=== PATIENT | female | born 1975 | race Caucasian/White ===

== ENCOUNTER 2024-02-13 19:45 | Outpatient (OUT) | payer OTHER, SELFPAY | END 2024-02-13 19:46 | disposition home or self-care (01) | LOC: SLEEP 19:45 | PROVIDERS: PCP Psychiatry & Neurology Neurology; Visit Provider Psychiatry & Neurology Neurology | DX: G47.33 Obstructive sleep apnea (adult) (pediatric) (principal) | CPT/HCPCS: 95810 ==

== ENCOUNTER 2024-03-27 20:00 | Outpatient (OUT) | payer OTHER, SELFPAY ==
--- OUTSIDE RECORDS SUMMARY | 2024-03-29 08:42 | XMS_ITS | CCD ---
Author Organization [facility] CliniSyal Care Team Providers Care Canary Breeder Name Role Phone GREGG, MAYCO Unavailable Unavailable GREGG, MAYCO Unavailable Unavailable GREGG, MAYCO Unavailable Unavailable GREGG, MAYCO Unavailable Unavailable GREGG, MAYCO Unavailable Unavailable GREGG, MAYCO Unavailable Unavailable GIOVANNI BEARD Unavailable Unavailable GREGG, MAYCO Unavailable Unavailable MONIQUE MARIE Unavailable Unavailable KUNS, TREVER SHI Unavailable Unavailable Kuns, Trever Unavailable Amy Weems Unavailable Kuns, DO Trever Primary Care Provider [phone] Kuns, DO Trever Attending Provider Kuns, DO Trever Primary Care Provider Kuns, DO Trever Attending Provider [phone] VisciDO Rico Attending Provider [phone] Kuns, DO Trever Attending Provider [phone] Kuns, DO Trever Primary Care Provider Rons Trever COLEMAN R Primary Care Provider [phone] MD Kenneth Barragan Referring Provider Kuns, Trever Admitting Unavailable Kuns, Trever Primary Care Unavailable Kenneth Barragan Referring Unavailable Kuns, Trever Attending Unavailable Kuns, Trever Attending Unavailable Kuns, Trever Admitting Unavailable Kuns, Trever Admitting Unavailable Kuns, Trever Primary Care Unavailable Kuns, Trever Attending Unavailable Kuns, Trever Admitting Unavailable Kuns, Trever Primary Care Unavailable Kuns, Trever Attending Unavailable Kuns, Trever Admitting Unavailable Kuns, Trever Primary Care Unavailable Kuns, Trever Attending Unavailable JAYLIN VILLELA Attending Unavailable TREVER LIMON R Referring Unavailable YONI BLANCHARD Attending Unavailable JAYLIN VILLELA Referring Unavailable ALEJANDRO BETTENCOURT Attending Unavailable JAYLIN VILLELA Referring Unavailable JAYLIN VILLELA Attending Unavailable Allergies Allergy Classification Reported Allergen(s) Allergy Type Date of Onset Reaction(s) Facility (13 sources) cefpodoxime; Translations: [CEFPODOXIME] Drug Allergy 09-22-2016 Bebeto Flynn [facility] Repository (20 sources) cefpodoxime Drug Allergy Unknown DNsolution Other Medications Current Medications Medication Drug Class(es) Dates Sig (Normalized) Sig (Original) acetaminophen 250 mg / aspirin 250 mg / caffeine 65 mg oral tablet (20 sources) Platelet Aggregation Inhibitor, Nonsteroidal Anti-inflammatory Drug, Central Nervous System Stimulant, Methylxanthine Start: 11-01-2018 take 1 tablet by mouth every four to six hours Aspirin-Acetamin ophen-Caffeine (Excedrin Migraine) 250-250-65 mg Tablet Active 1 TAB PO EVERY 4-6 HOURS November 01, 2018 12:00am take 2 tablets by mo [facility] every twenty-four hours Excedrin Migraine 250-250-65 MG 2 tablet s Orally Once a day Active take 2 tablets by mo [facility] every twenty-four hours azithromycin 250 mg oral tablet (13 sources) Macrolide Antimicrobial Start: 12-28-2021 Zithro max Z-Melany 250 MG as directed Orally as directed Dec, Active Start: 05-04-2021 Zithromax 250 MG 2 tablet on the first day, then 1 tablet daily for 4 days Orally as directed for 5 day(s) Apr, Active cholecalciferol 0.05 mg oral capsule (10 sources) Vitamin D take 1 capsule by mouth every twenty-four hours Vitamin D3 50 MCG (1999 UT) 1 capsule Orally Once a day Active citalopram 20 mg oral tablet (9 sources) Serotonin Reuptake Inhibitor Start: 10-30-19 take 1 tablet by mouth every twenty-four hours Citalopram Hydrobromide 20 MG 1 tablet Orally Once a day for 90 days Oct, Active Start: 10-29-2021 [facility]four hours Citalopram Hydrobromide 10 MG 1 tablet Orally Once a day for 90 days Oct, Active Collagen (17 sources) Collagen 1500/C 500-50-0.8 MG as directed Orally Active eletriptan 40 mg oral tablet (20 sources) Serotonin-1b and Serotonin-1d Receptor Agonist Start: 08-31-2017 take 1 tablet by mouth once Eletriptan (Relpax) 40 mg Tablet Active 40 MG PO Once November 01, 2018 12:00am Start: 08-31-2017 take 1 tablet by mouth every t wenty-four hours hydrOXYzine hydrochloride 25 mg oral tablet (1 source) Antihistamine Start: 08-18-2022 take 1 tablet by mouth every twenty-four hours hydrOXYzine HCl 25 MG 1 tablet at bedtime as needed Orally Once a day for 30 days August, Active ibuprofen 600 mg oral tablet (16 sources) Nonsteroidal Anti-inflammatory Drug Start: 11-09-2018 Ibuprofen Active 600 MG PO Every 6 hours November 09, 2018 12:00am do not exceed 4 doses in a 24 hour period Start: 11-01-2018 End: 11-09-2018 take 3 tablets by mouth every six hours Ibuprofen (Advil) 200 mg Tablet Discontinued 600 MG PO Q6H November 01, 2018 12:00am November 09, 2018 9:40am levonorgestrel 0.802341 mg/hr intrauterine system (12 sources) Progestin, Progestin-containing Intrauterine Device Start: 12-13-2023 Levonorgestrel (Liletta) 20.4 mcg/24 hr (8 yrs) 52 mg intrauterine device Active INTRAUTERI December 13, 2023 12:00am Levonorgestrel ( Liletta, 52 MG,) 20.1 MCG/DAY intrauterine device by Intrauterine route. Active methylPREDNISolone 4 mg oral tablet (4 sources) Corticosteroid Start: 05-04-2021 Medrol 4 MG as directed Orally Apr, Active Multi For Her - (10 sources) Multi For Her - as directed Orally Active 24 hr oxybutynin chloride 10 mg extended release oral tablet (8 sources) Cholinergic Muscarinic Antagonist Start: 03-31-2023 End: 2024 take 1 tablet by mouth every twenty-four hours in the morning oxybutynin XL (Ditropan-XL) 10 MG 24 hr tablet Indications: Urinary urgency , Urge incontinence of urine , Urinary frequency Take 1 tablet (10 mg) by mouth in the morning. Do not crush, chew, or split.. 30 tablet 11 03/31/2023 2024 Active Progesterone Compounding Kit 20 % (5 sources) Progesterone Compounding Kit 20 % as directed Transdermal Active Vitamin B12 1000 MCG (10 sources) take 1 tablet by mouth once daily Vitamin B12 1000 MCG 1 tablet Orally Once a day Active vortioxetine 5 mg oral tablet (1 source) Start: 08-18-2022 take 1 tablet by mouth every twenty-four hours Trintellix 5 MG 1 tablet Orally Once a day for 30 days August, Active {20 (nirmatrelvir 150 MG Oral Tablet) / 10 (ritonavir 100 MG Oral Tablet) } Pack [Paxlovid 5-Day] (4 sources) Start: 11-26-2022 take 3 tablets by mouth every twelve hours Paxlovid (300/100) 20 x 150 MG & 10 x 100MG 3 tablets Orally Twice a day for 5 days covid + 11/26/22 GFR >60 Nov, Active Completed/Discontinued Medications Medication Drug Class(es) Dates Sig (Normalized) Sig (Original) acetaminophen 325 mg / HYDROcodone bitartrate 5 mg oral tablet (8 sources) Opioid Agonist Start: 02-08-2017 End: 11-01-2018 take 1 tablet by mouth every four to six hours Hydrocodone-Acetami nophen ([place]) 5-325 mg Tablet Discontinued 1 TAB PO EVERY 4-6 HOURS February 08, 2017 12:00am November 01, 2018 4:26pm acetaminophen 325 mg / oxyCODONE hydrochloride 5 mg oral tablet (8 sources) Opioid Agonist Start: 11-09-2018 End: 11-17-2023 take 1-2 tablets by mouth every six hours as needed for pain Oxycodone-Acetamino phen (Percocet) 5-325 mg tablet Discontinued 1 - 2 TAB PO Q6H 28 06November 09, 2018 November 17, 2023 1:57pm May take 1-2 tabs q 6 hours prn pain Biotin (20 sources) Start: 11-17-2023 End: 12-13-2023 take 300 ug by mouth once daily Biotin Discontinued 300 MCG PO Daily November 17, 2023 12:00am December 13, 2023 3:53pm Start: 11-17-2023 take 300 ug by mouth once yoselin y Biotin Active 300 MCG PO Daily November 17, 2023 12:00am take 1 tablet by del[facility] every twenty-four hours Biotin 300 MCG 1 tablet Orally Once a day Active take 1 tablet by mouth once yoselin y Biotin 300 MCG 1 tablet Orally Once a day Active 1 ml erenumab-aooe 70 mg/ml auto-injector (20 sources) Start: 08-02-2018 End: 12-13-2023 inject 70 mg by subcutaneous injection every month Erenumab-Aooe (Aimovig Autoinjector) 70 mg/mL Auto-Injector Discontinued 70 MG SUBCUT every month November 01, 2018 12:00am December 13, 2023 3:53pm Ketorolac (20 sources) Nonsteroidal Anti-inflammatory Drug, Cyclooxygenase Inhibitor Start: 08-02-2018 Toradol per 15 mg Jul, 60 mg Start: 07-19-2018 Toradol per 15 mg Jul, 2 mg Start: 07-18-2017 Toradol per 15 mg Jul, 2 cc Start: 07-14-2017 Toradol per 15 mg Jul, 2 cc Start: 12-21-2016 Toradol per 15 mg Dec, 2 cc Start: 05-17-2016 Toradol per 15 mg May, 2 cc Start: 05-03-2016 Toradol per 15 mg Apr, 60 mg Start: 03-13-2014 Toradol per 15 mg Mar, 2 mL mupirocin 0.02 mg/mg topical ointment (5 sources) RNA Synthetase Inhibitor Antibacterial Start: 11-30-2023 End: 12-13-2023 Mupirocin Discontinued 1 APPLIC TOPICAL Twice daily November 30, 2023 12:00am December 13, 2023 3:53pm promethazine hydrochloride 25 mg oral tablet (8 sources) Phenothiazine Start: 02-08-2017 End: 11-01-2018 take 25 mg by mouth every four to six hours Promethazine Discontinued 25 MG PO EVERY 4-6 HOURS February 08, 2017 12:00am November 01, 2018 4:27pm sulfamethoxazole 800 mg / trimethoprim 160 mg oral tablet (13 sources) Dihydrofolate Reductase Inhibitor Antibacterial, Sulfonamide Antimicrobial Start: 11-30-2023 End: 12-13-2023 take 1 tablet by mouth twice daily Sulfamethoxazole- Trimethoprim (Bactrim Ds) 800-160 mg tablet Discontinued 1 TAB PO Twice daily 28 01November 30, 2023 12:00am December 13, 2023 3:53pm Start: 11-09-2018 End: 11-17-2023 take 1 tablet by mouth twice daily Sulfamethoxazole-Trimethoprim (Bactrim D s) 800-160 mg tablet Discontinued 1 TAB PO Twice daily 22 10November 09, 2018 12:00am November 17, 2023 1:57pm Theraputic Injection (20 sources) Start: 08-30-2018 Theraputic Inj ection August, 70 mg Start: 08-02-2018 Theraputic Inj ection Jul, 1 mL Toradol 30 mg/ml (20 sources) Start: 05-04-2021 Toradol 30 mg/ ml Apr, 30 mg Start: 11-04-2020 Toradol 30 mg/ ml Oct, 2 cc venlafaxine 75 mg oral tablet (20 sources) Serotonin and Norepinephrine Reuptake Inhibitor Start: 11-17-2023 End: 12-13-2023 take 75 mg by mouth once daily Venlafaxine Discontinued 75 MG PO Daily November 17, 2023 12:00am December 13, 2023 3:53pm Start: 10-18-2022 take 1 tablet by del[facility] th in the morning venlafaxine (Effexor) 37.5 MG tablet Take 37.5 mg by mouth in the morning. Take with food.. 10/18/2022 Active Start: 09-22-2022 take 1 tablet by [facility] every twenty-four hours Venlafaxine HCl 75 MG 1 tablet with food Orally Once a day for 90 days Sep, Active Start: 09-22-2022 take 1 tablet by del[facility] th every twenty-four hours Venlafaxine HCl 37.5 MG 1 tablet with food Orally Once a day for 30 days Sep, Active Problems Active Problems Problem Classification Problem Date Documented Date Episodic/Chronic Adjustment disorders (2 sources) Stress; Translations: [Reaction to severe stress, unspecified] 02-08-2024 Chronic Administrative/social admission (20 sources) Dietary management surveillance; Translations: [Dietary counseling and surveillance] Episodic Anxiety disorders (20 sources) Mixed anxiety and depressive disorder; Translations: [Other specified anxiety disorders] Chronic Attention-deficit, conduct, and disruptive behavior disorders (2 sources) Attention deficit hyperactivity disorder, predominantly inattentive type; Translations: [Attention-deficit hyperactivity disorder, predominantly inattentive type] 02-23-2024 Chronic Calculus of urinary tract (8 sources) Kidney stone; Translations: [Calculus of kidney] 02-08-2017 Episodic Cardiac dysrhythmias (20 sources) Cardiac arrhythmia; Translations: [Cardiac arrhythmia, unspecified] Chronic Cardiac dysrhythmias (3 sources) Palpitations; Translations: [Palpitations] Onset: 10-21-2021 Resolved: 10-21-2021 Episodic Deficiency and other anemia (20 sources) Anemia; Translations: [Anemia, unspecified] 11-17-2023 Episodic Disorders of lipid metabolism (20 sources) Hyperlipidemia; Translations: [Hyperlipidemia, unspecified] Onset: 10-21-2021 Resolved: 10-21-2021 Chronic E Codes: Natural/environment (20 sources) Bitten or stung by nonvenomous insect and other nonvenomous arthropods, initial encounter; Translations: [Tick bite] Episodic Genitourinary symptoms and ill-defined conditions (8 sources) Female stress incontinence; Translations: [Stress incontinence (female) (male)] 11-09-2018 Chronic Headache, including migraine (20 sources) Migraine, unspecified, not intractable, with status migrainosus; Translations: [Menstrual migraine] Onset: 08-02-2017 Resolved: 12-09-2021 Chronic Malaise and fatigue (20 sources) Other fatigue; Translations: [Fatigue] Onset: 10-21-2021 Resolved: 10-29-2021 Episodic Miscellaneous mental health disorders (20 sources) [place]; Translations: [Other symptoms and signs involving emotional state] Onset: 10-29-2021 Resolved: 12-09-2021 Episodic Mood disorders (4 sources) Depressive disorder; Translations: [Depression, unspecified depression type (CMS/HCC)] 02-08-2024 Chronic Nonspecific chest pain (4 sources) Chest pain, unspecified; Translations: [Chest pain] Onset: 02-07-2024 Episodic Other bone disease and musculoskeletal deformities (20 sources) Nonallopathic lesion of the thoracic region; Translations: [Segmental and somatic dysfunction of thoracic region] Episodic Other bone disease and musculoskeletal deformities (20 sources) Nonallopathic lesion of rib cage; Translations: [Segmental and somatic dysfunction of rib cage] Episodic Other endocrine disorders (20 sources) Disorder of endocrine system; Translations: [Endocrine disorder, unspecified] Episodic Other female genital disorders (8 sources) Cyst of vagina; Translations: [Other specified noninflammatory disorders of vagina] 11-09-2018 Episodic Other inflammatory condition of skin (1 source) Pruritus, unspecified Episodic Other lower respiratory disease (2 sources) Shortness of breath; Translations: [Shortness of breath] Onset: 02-07-2024 Episodic Other nervous system disorders (2 sources) Disturbance of attention; Translations: [Attention and concentration deficit] 02-08-2024 Chronic Other nervous system disorders (4 sources) Impaired cognition; Translations: [Other symptoms and signs involving cognitive functions and awareness] 12-13-2023 Episodic Other nervous system disorders (5 sources) Other symptoms and signs involving cognitive functions and awareness; Translations: [Other signs and symptoms involving cognition] Onset: 12-22-2023 12-13-2023 Episodic Other nervous system disorders (4 sources) Word finding difficulty ; Translations: [Other speech disturbances] 02-08-2024 Episodic Other nutritional; endocrine; and metabolic disorders (1 source) Body mass index 30+ - obesity; Translations: [Body mass index (BMI) 31.0-31.9, adult] 02-07-2024 Chronic Other nutritional; endocrine; and metabolic disorders (1 source) Obesity; Translations: [Obesity, unspecified] 02-07-2024 Chronic Other nutritional; endocrine; and metabolic disorders (1 source) Body mass index (BMI) 31.0-31.9, adult; Translations: [Body Mass Index 31.0-31.9, adult] 02-07-2024 Chronic Other nutritional; endocrine; and metabolic disorders (1 source) Obesity, unspecified; Translations: [Obesity, unspecified] 02-07-2024 Chronic Other screening for suspected conditions (not mental disorders or infectious disease) (20 sources) Breast neoplasm screening status; Translations: [Encounter for other screening for malignant neoplasm of breast] Onset: 02-07-2024 11-17-2023 Episodic Other upper respiratory disease (1 source) Paralysis of vocal cords and larynx, unspecified; Translations: [Paralysis of vocal cords and larynx, unspecified] Onset: 10-21-2016 Chronic Residual codes; unclassified (6 sources) Obstructive sleep apnea syndrome; Translations: [Obstructive sleep apnea (adult) (pediatric)] 02-08-2024 Chronic Residual codes; unclassified (10 sources) Amnesia; Translations: [Other amnesia] 12-13-2023 Episodic Residual codes; unclassified (4 sources) Family history of amyotrophic lateral sclerosis; Translations: [Family history of epilepsy and other diseases of the nervous system] 12-13-2023 Episodic Residual codes; unclassified (5 sources) Family history of epilepsy and other diseases of the nervous system; Translations: [Family history of other neurological diseases] Onset: 12-22-2023 12-13-2023 Episodic Residual codes; unclassified (8 sources) Other amnesia; Translations: [Memory loss] Onset: 12-22-2023 12-13-2023 Episodic Substance-related disorders (20 sources) Tobacco user; Translations: [Nicotine dependence, cigarettes, uncomplicated] 11-17-2023 Chronic Thyroid disorders (20 sources) Thyroid nodule; Translations: [Nontoxic single thyroid nodule] Onset: 10-21-2021 Resolved: 10-21-2021 Chronic Unclassified (1 source) Unknown / UNK(Unknown) Onset: 03-18-2017 Past or Other Problems Problem Classification Problem Date Documented Da te Episodic/Chronic Anxiety disorders (1 source) Irritability and anger Onset: 10-21-2021 Resolved: 10-21-2021 Episodic Deficiency and other anemia (1 source) Anemia, unspecified Onset: 10-21-2021 Resolved: 10-21-2021 Episodic Immunizations and screening for infectious disease (1 source) Contact with and (suspected) exposure to other viral communicable diseases Onset: 04-21-2021 Resolved: 04-21-2021 Episodic Mood disorders (1 source) Emotional lability Onset: 10-21-2021 Resolved: 10-21-2021 Episodic Nausea and vomiting (1 source) Nausea Onset: 05-04-2021 Resolved: 05-04-2021 Episodic Other endocrine disorders (1 source) Endocrine disorder, unspecified Onset: 10-21-2021 Resolved: 10-21-2021 Episodic Other upper respiratory disease (1 source) Nasal congestion Onset: 05-04-2021 Resolved: 05-04-2021 Episodic Skin and subcutaneous tissue infections (20 sources) Cellulitis, unspecified; Translations: [Cellulitis] Onset: 11-30-2023 11-30-2023 Episodic Viral infection (8 sources) COVID-19; Translations: [Disease caused by 2019-nCoV] Onset: 05-04-2021 Resolved: 05-04-2021 Results Test Name Value Interpretation Reference Range Facility [facility] echo transthoracicon [facility] echo transthoracic [facility] [place] [address] Echocardiogram Signed Patient: Rita Jason MR#: [id number] 86 : 1975 Acct:[id number] Age/Sex: 48 / F ADM Date: 02/07/24 Loc: Room: Type: [facility] Attending Dr: Trever Limon DO Ordering Provider: Trever Limon DO Date of Service: 02/07/24 [facility] echo transthoracic: Chest pain;SOB (shortness of breath);Palpitations;Hype rlipid Copies to: DO Jarret Dejesus MD Amy D 11:19 AM Patient Location: : 1975 Gender: Female (MM/DD/YYYY) Age: 48 Years Ordering Physician: Trever Limon Height: 65.75 in Referring Physician: Kenneth Barragan Weight: 195.003 lb Performed By: Ernestina Klein BSA: 1.97 m2 BP: 130 / 76 mmHg HR: 70 bpm Reason For Study: Chest pain;SOB (shortness of breath);Palpitations;Hype rlipid History: Smoker, Arrhythmia + -+ Interpretation Summary Ejection Fraction = 60-65%. A variety of Doppler measurements indicate normal left ventricular diastolic function. The left ventricular size and thickness are normal. No regional wall motion abnormalities noted. There is no comparison study available. No significant valvular abnormality seen. This was essentially a normal study. Procedure/Quality: A two-dimensional transthoracic echocardiogram with color flow and Doppler was performed. The study was technically suboptimal in quality due to poor acoustic windows . Left Ventricle: The left ventricular size and thickness are normal. Ejection Fraction = 60-65%. A variety of Doppler measurements indicate normal left ventricular diastolic function. No regional wall motion abnormalities noted. Left Atrium: The left atrium appears normal in size. Right Ventricle: The right ventricle is grossly normal size. The right ventricle is not well visualized. Aortic Valve: The aortic valve is not well visualized. No hemodynamically significant valvular aortic stenosis. No aortic regurgitation is present. Mitral Valve: The mitral valve is normal in structure. No significant mitral valve stenosis. There is no mitral regurgitation noted. Tricuspid Valve: The tricuspid valve is normal in structure. No tricuspid regurgitation. Pulmonic Valve: The pulmonic valve is not well visualized. No significant pulmonic regurgitation. Arteries: The aortic root is normal size. Pericardium/Pleura: No pericardial effusion seen. There is no pleural effusion. IVC/Hepatic Veins: The inferior vena cava is normal in size, with a normal collapsibility index. MMode/2D Measurements Calculations IVSd (0.7-1.1 cm): 1.14 cm LVIDd (3.7-5.4 cm): 3.7 cm LVPWd (0.7-1.1 cm): 0.85 cm LVIDs (2.3-3.6 cm): 2.09 cm LA dimension (2.3-4.0 cm): 3.6 Ao root diam (2.0-3.2 cm): 2.7 cm cm FS: 43.0 % Ao root area: 5.7 cm2 EDV(Teich): 56.9 ml LVOT diam: 1.96 cm ESV(Teich): 14.2 ml LVOT area: 3.0 cm2 EF(Teich): 75.0 % LAV(MOD-sp2): 39.6 ml LAV(MOD-sp4): 33.4 ml LA A2 area: 16.0 cm2 LA A4 area: 14.3 cm2 LA length (vol): 4.8 cm LA vol: 40.7 ml LA vol index: 20.6 ml/m2 Doppler Measurements Calculations MV E max arielle: 96.3 cm/sec Ao V2 max: 107.7 cm/sec MV A max arielle: 83.1 cm/sec Ao max P.6 mmHg MR max arielle: 205.3 cm/sec Ao mean P.9 mmHg MV dec time: 0.17 sec Ao V2 mean: 82.1 cm/sec MV dec slope: 560.8 cm/sec?? Ao V2 VTI: 24.7 cm E/E' lat: 8.9 LINO(I,D): 3.3 cm2 E/E' med: 13.4 LINO(V,D): 3.7 cm2 TV max P.0 mmHg LV V1 max: 132.9 cm/sec TR max arielle: 100.8 cm/sec LV V1 max P.1 mmHg TR max P.1 mmHg LV V1 mean: 95.9 cm/sec RAP systole: 3.0 mmHg LV V1 mean P.0 mmHg LV V1 VTI: 27.4 cm + + + + + --+ + : Electronically : : signed by: Jarret : : : : Jannet : : : : on: 02/07/2024, : : : : 6:53 PM : + --+ + Transcribed By: IZABELLA Performed At: 02/07/24 1119 Signed By: Jarret Power MD 02/07/24 1853 Normal [facility] MM screening mammo BI w/CADo n 02-07-2024 MM screening mammo BI w/CAD [facility] [place] [address] Mammography Report Signed Patient: Rita Jason MR#: [id number] 86 : 1975 Acct:[id number] Age/Sex: 48 / F ADM Date: 02/07/24 Loc: Room: Type: [facility] Attending Dr: Trever Limon DO Copies to: DO Kenneth Dejesus MD Ordering Provider: Trever Limon DO Date of Service: 02/07/24 MM/MM screening mammo BI w/CAD: Z12.31 - Encounter for screening mammogram for malignant ... CLINICAL DATA: Screening for malignancy. BILATERAL SCREENING MAMMOGRAMS - FULL FIELD DIGITAL WITH TOMOSYNTHESIS AND CAD Tomosynthesis craniocaudal and mediolateral oblique views of both breasts were obtained using low- dose digital technique. Comparison is made to prior studies from March 27, 2009 and June 17, 2016. This examination was reviewed with the aid of CAD. The breast parenchyma is heterogeneously dense. This may lower sensitivity of mammography. There are no definite developing masses, typically malignant calcifications or architectural distortion. There has been no significant interval change. MM/MM screening mammo BI w/CAD IMPRESSION: NO MAMMOGRAPHIC EVIDENCE OF MALIGNANCY. ROUTINE FOLLOW-UP IS RECOMMENDED IN ONE YEAR. RESULT CODE: 1 Negative DENSITY CODE: 3 (approximately 51-75% glandular) FOLLOW UP: 1YR The false-negative rate of mammography is approximately 10-percent. Management of a palpable abnormality must be based on clinical grounds. Patient was entered into a reminder system with a target due date for the next mammogram. Impression dictated by: Letitia Nagy M.D.02/07/2024 4:46 PM Dictation Location: [facility] Transcribed By: [facility] 02/07/24 1646 Dictated By: Letitia Nagy MD 02/07/24 1640 Signed By: 02/07/24 1646 Normal [facility]PG ECG *PCP OFFICE ONLY*on 01-03-2024 FPG ECG *PCP OFFICE ONLY* [facility] [place] [address] Electrocardiograph Report Signed Patient: Rita Jason MR#: [id number] 86 : 1975 Acct:[id number] Age/Sex: 48 / F ADM Date: 01/03/24 Loc: EKGCAST Room: Type: [facility] Attending Dr: Trever Limon DO Ordering Provider: Trever Limon DO Date of Service: 01/03/24 ECG/FPG ECG *PCP OFFICE ONLY*: Z00.00 - Encounter for general adult medical examination ... Copies to: Test Reason : Blood Pressure : */* mmHG Vent. Rate : 90 BPM Atrial Rate : 90 BPM P-R Int : 184 ms QRS Dur : 74 ms QT Int : 346 ms P-R-T Axes : 37 -1 31 degrees QTcB Int : 423 ms Normal sinus rhythm Low voltage QRS Poor R wave progression may represent an age indeterminite ant. MT vs. LVH vs. infiltrative cardiomyopathy or lead placement Abnormal ECG When compared with ECG of 30-Jun-2016 15:15, Minimal criteria for Anteroseptal infarct are now present Confirmed by Jarret Power ([id number]) on 01/04/2024 10:02:30 AM Referred By: Electronically Signed By: Jarret Power Transcribed By: MUS Signed By Jarret Power MD 01/04/24 1002 Normal [facility] CT head/brain wo/w cole CT head/brain wo/w con [facility] Main [address] [address] [address] Scan Report Signed Patient: Rita Jason MR#: [id number] : 1975 Acct:[id number] Age/Sex: 48 / F ADM Date: 12/27/23 Loc: CT Room: Type: [facility] Attending Dr: Trever Limon DO Copies to: Trever Limon DO Ordering Provider: Trever Limon DO Date of Service: 12/27/23 CT/CT head/brain wo/w con: Z82.0 - Family history of epilepsy and other diseases of ... CT BRAIN WITH AND WITHOUT CONTRAST: CLINICAL HISTORY: Trouble sleeping forgetfulness for 2 months. COMPARISON: CT brain 07/21/2017 TECHNIQUE: Contiguous axial unenhanced and enhanced images were obtained through the brain. This CT exam was performed using one or more following dose reduction techniques: Automated exposure control, adjustment of the mA and/or kV according to patient size, or use of iterative reconstruction technique. FINDINGS: There is no evidence of midline shift, intra or extra-axial fluid collection, hemorrhage or CT evidence of stroke. Posterior fossa appears unremarkable. Visualized intraorbital contents demonstrate no acute findings. Visualized paranasal sinuses are clear. The surrounding soft tissues are normal. Postcontrast series demonstrates no abnormal enhancement. CT/CT head/brain wo/w con IMPRESSION: NO ACUTE INTRACRANIAL ABNORMALITY. Impression dictated by: Duarte Flores Jr., D.O.12/27/2023 5:14 PM Dictation Location: [place] [address] Transcribed By: [facility] 12/27/231713 Dictated By: Duarte Flores Jr, DO 12/27/231710 Signed By: 12/27/231713 Normal [facility] A1C with Estimated Average G brandon 12-22-2023 Glucose [Mass/Vol] 105 mg/dL Normal [facility] Comment on above: Result Comment: PERF ORMED BY: [place] [address] PATHOLOGIST [employer] BRADLEY GRADY M.D. Performed By: #### G S, AER #### [address] Alanine aminotransferase [En zymatic activity/volume] in Serum or PlasmaOrdered By: Trever Limon on 12-22-2023 ALT [Catalytic activity/Vol] 22 U/L Normal 7-52 [facility] Comment on above: Order Comment: NON-F ASTING Performed By: #### A 1C WT eA, CMP, TSH3, ESR, B12, CBC, LIPID #### [facility] [address] Albumin [Mass/volume] in Ser um or Plasma by Bromocresol green (BCG) dye binding methoOrdered By: Trever Limon on 12-22-2023 Albumin BCG dye [Mass/Vol] 4.9 g/dL 3.5-5.7 [facility] Alkaline phosphatase [Enzyma tic activity/volume] in Serum or PlasmaOrdered By: Trever Limon on 12-22-2023 ALP [Catalytic activity/Vol] 73 U/L Normal 34-104 [facility] Comment on above: Order Comment: NON-F ASTING Performed By: #### A 1C WT eA, CMP, TSH3, ESR, B12, CBC, LIPID #### [address] Aspartate aminotransferase [ Enzymatic activity/volume] in Serum or PlasmaOrdered By: Trever Limon on 12-22-2023 AST [Catalytic activity/Vol] 17 U/L Normal 13-39 [facility] Comment on above: Order Comment: NON-F ASTING Performed By: #### A 1C WT eA, CMP, TSH3, ESR, B12, CBC, LIPID #### [address] Automated basophil %Ordered By: Trever Limon on 12-22-2023 Basophils/100 WBC (Bld) 0.8 % Normal . [facility] Comment on above: Performed By: #### A 1C WTH eA, CMP, TSH3, ESR, B12, CBC, LIPID #### [facility] [address] Automated basophil countOrde red By: Trever Limon on 12-22-2023 Basophils (Bld) [#/Vol] 0.1 10*3/uL Normal 0.0-0.2 [facility] Comment on above: Performed By: #### A 1C WTH eA, CMP, TSH3, ESR, B12, CBC, LIPID #### [facility] [address] Automated blood monocyte cou ntOrdered By: Trever Limon on 12-22-2023 Monocytes (Bld) [#/Vol] 0.5 10*3/uL Normal 0.0-0.8 [facility] Comment on above: Performed By: #### A 1C [facility] eA, CMP, TSH3, ESR, B12, CBC, LIPID #### [facility] [address] Automated eosinophil %Ordere d By: Trever Limon on 12-22-2023 Eosinophils/100 WBC (Bld) 1.8 % Normal . [facility] Comment on above: Performed By: #### A 1C [facility] eA, CMP, TSH3, ESR, B12, CBC, LIPID #### [address] Automated eosinophil countOr dered By: Trever Limon on 12-22-2023 Eosinophils (Bld) [#/Vol] 0.1 10*3/uL Normal 0.0-0.45 [facility] Comment on above: Performed By: #### A 1C [facility] eA, CMP, TSH3, ESR, B12, CBC, LIPID #### [address] Automated monocyte %Ordered By: Trever Limon on 12-22-2023 Monocytes/100 WBC (Bld) 7.4 % Normal . [facility] Comment on above: Performed By: #### A 1C [facility] eA, CMP, TSH3, ESR, B12, CBC, LIPID #### [address] Automated neutrophil %Ordere d By: Trever Limon on 12-22-2023 Neutrophils/100 WBC (Bld) 63.8 % Normal . [facility] Comment on above: Performed By: #### A 1C [facility] eA, CMP, TSH3, ESR, B12, CBC, LIPID #### [address] Bilirubin.total [Mass/volume ] in Serum or PlasmaOrdered By: Trever Limon on 12-22-2023 Bilirubin [Mass/Vol] 0.9 mg/dL Normal 0.3-1.0 [facility] Comment on above: Order Comment: NON-F ASTING Performed By: #### A 1C [facility] eA, CMP, TSH3, ESR, B12, CBC, LIPID #### [facility] [address] [place] [address] [place] Calcium [Mass/volume] in Ser um or PlasmaOrdered By: Trever Limon on 12-22-2023 Calcium [Mass/Vol] 9.7 mg/dL Normal 8.6-10.3 [facility] Comment on above: Order Comment: NON-F ASTING Performed By: #### A 1C [facility] eA, CMP, TSH3, ESR, B12, CBC, LIPID #### [facility] [address] [place] [id number] [place] Carbon dioxide, total [Moles /volume] in Serum or PlasmaOrdered By: Trever Limon on 12-22-2023 CO2 [Moles/Vol] 27.5 mmol/L Normal 21.0-31.0 [facility] Comment on above: Order Comment: NON-F ASTING Performed By: #### A 1C [facility] eA, CMP, TSH3, ESR, B12, CBC, LIPID #### [facility] [address] [place] [address] [place] Chloride [Moles/volume] in S remy or PlasmaOrdered By: Trever Limon on 12-22-2023 Chloride [Moles/Vol] 102 mmol/L Normal 98-107 [facility] Comment on above: Order Comment: NON-F ASTING Performed By: #### A 1C WT eA, CMP, TSH3, ESR, B12, CBC, LIPID #### [facility] [address] [place] [id number] [place] Cholesterol [Mass/volume] in Serum or PlasmaOrdered By: Trever Limon on 12-22-2023 Cholesterol [Mass/Vol] 206 mg/dL High 140-200 [facility] Comment on above: Chol less than 200 m g/dl low riskChol 201-239 mg/dl borderline riskChol 240 mg/dl and greater high risk Order Comment: NON-F ASTING Result Comment: Chol less than 200 mg/dl low risk Chol 201-239 mg/dl borderline risk Chol 240 mg/dl and greater high risk Performed By: #### A 1C WT eA, CMP, TSH3, ESR, B12, CBC, LIPID #### [facility] [address] Cholesterol in LDL Calc [Mas s/Vol]Ordered By: Trever Limon on 12-22-2023 Cholesterol in LDL [Mass/Vol] 123 mg/dL High 0-100 [facility] Comment on above: LDL ATP III CLASSIFI CATIONLDL less than 100 mg/dL OptimalLDL 100-129 mg/dL Near or above optimalLDL 130-159 mg/dL Borderline highLDL 160-189 mg/dL HighLDL greater than 189 mg/dL Very high Cholesterol in VLDL Calc [Ma ss/Vol]Ordered By: Trever Limon on 12-22-2023 Cholesterol in VLDL [Mass/Vol] 30 mg/dL [facility] Complete Blood Count Auto Di ffon 12-22-2023 Mean Corpuscular HGB Conc 34.9 g/dL Normal 32.0-35.0 [facility] Comment on above: Performed By: #### A 1C [facility] eA, CMP, TSH3, ESR, B12, CBC, LIPID #### [facility] [address] NRBC% 0.1 /100{WBC} Normal 0-0.5 [facility] Comment on above: Performed By: #### A 1C WT eA, CMP, TSH3, ESR, B12, CBC, LIPID #### [facility] [address] Comprehensive Metabolic Pane mirella 12-22-2023 Albumin [Mass/Vol] 4.9 g/dL Normal 3.5-5.7 [facility] Comment on above: Order Comment: NON-F ASTING Performed By: #### A 1C WT eA, CMP, TSH3, ESR, B12, CBC, LIPID #### [facility] [address] GFR/1.73 sq M.predicted MDRD (S/P/Bld) [Vol rate/Area] mL/min/{1.73_m2} Normal [facility] Comment on above: Order Comment: NON-F ASTING Performed By: #### A 1C WTH eA, CMP, TSH3, ESR, B12, CBC, LIPID #### [address] Creatinine [Mass/volume] in Serum or PlasmaOrdered By: Trever Limon on 12-22-2023 Creatinine [Mass/Vol] 0.68 mg/dL Normal 0.60-1.20 [facility] Comment on above: Order Comment: NON-F ASTING Performed By: #### A 1C WTH eA, CMP, TSH3, ESR, B12, CBC, LIPID #### [address] Erythrocyte Sedimentation Ra neto 12-22-2023 ESR (Bld) [Velocity] 10 mm/h Normal 0-19 [facility] Comment on above: Result Comment: PERF ORMED BY: [place] [address] PATHOLOGIST [employer] BRADLEY GRADY M.D. Performed By: #### A 1C WTH eA, CMP, TSH3, ESR, B12, CBC, LIPID #### [address] Erythrocyte distribution wid th [Ratio] by Automated countOrdered By: Trever Limon on 12-22-2023 Erythrocyte distribution width (RBC) [Ratio] 13.6 % Normal 11.9-15.3 [facility] Comment on above: Performed By: #### A 1C WTH eA, CMP, TSH3, ESR, B12, CBC, LIPID #### [address] Erythrocyte sedimentation ra te by Photometric methodOrdered By: Trever Limon on 12-22-2023 ESR Photometric method (Bld) [Velocity] 10 mm/hr 0-19 [facility] Erythrocytes [#/volume] in B lood by Automated countOrdered By: Trever Limon on 12-22-2023 RBC (Bld) [#/Vol] 4.63 10*6/uL Normal 3.60-5.00 [facility] Comment on above: Performed By: #### A 1C [facility] eA, CMP, TSH3, ESR, B12, CBC, LIPID #### [facility] [address] [place] [id number] [place] Glucose [Mass/volume] in Ser um or PlasmaOrdered By: Trever Limon on 12-22-2023 Glucose [Mass/Vol] 78 mg/dL Normal 70-100 [facility] Comment on above: ADA recommended refe rence rangeRandom Glucose Reference Range is dependent on time and content of last meal. Glucose of more than 200 mg/dL in a nonstressed, ambulatory subject supports the diagnosis of Diabetes Mellitus. Order Comment: NON-F ASTING Result Comment: [place] om Glucose Reference Range is dependent on time and content of last meal. Glucose of more than 200 mg/dL in a nonstressed, ambulatory subject supports the diagnosis of Diabetes Mellitus. ADA recommended reference range Performed By: #### A 1C [facility] eA, CMP, TSH3, ESR, B12, CBC, LIPID #### [facility] [address] [place] [id number] [place] Glucose mean value [Mass/vol ume] in Blood Estimated from glycated hemoglobinOrdered By: Trever Limon on 12-22-2023 Average glucose Estimated from glycated hemoglobin (Bld) [Mass/Vol] 105 mg/dL [facility] Hematocrit [Volume Fraction] of Blood by Automated countOrdered By: Trever Limon on 12-22-2023 Hematocrit (Bld) [Volume fraction] 40.2 % Normal 34.0-46.4 [facility] Comment on above: Performed By: #### A 1C [facility] eA, CMP, TSH3, ESR, B12, CBC, LIPID #### [facility] [address] [place] [id number] [place] Hemoglobin A1c percentageOrd ered By: Trever Limon on 12-22-2023 HbA1c (Bld) [Mass fraction] 5.3 % Normal 4.3-5.6 [facility] Comment on above: Increased risk for d iabetes: 5.7 - 6.4diabetes: >6.4glycemic control for adults with diabetes: <7.0 Result Comment: Incr eased risk for diabetes: 5.7 - 6.4 diabetes: >6.4 glycemic control for adults with diabetes: <7.0 Performed By: #### G S, AERC #### [facility] [address] Hemoglobin [Mass/volume] in BloodOrdered By: Trever Limon on 12-22-2023 Hemoglobin (Bld) [Mass/Vol] 14.0 g/dL Normal 11.8-15.4 [facility] Comment on above: Performed By: #### A 1C WTH eA, CMP, TSH3, ESR, B12, CBC, LIPID #### [address] Leukocytes [#/volume] correc mariam for nucleated erythrocytes in Blood by Automated counOrdered By: Trever Limon on 12-22-2023 WBC corrected for nucl RBC Auto (Bld) [#/Vol] 6.9 10*3/uL 3.8-11.6 [facility] Leukocytes [#/volume] in Blo od by Automated countOrdered By: Trever Limon on 12-22-2023 WBC (Bld) [#/Vol] 6.9 10*3/uL Normal 3.8-11.6 [facility] Comment on above: Performed By: #### A 1C WTH eA, CMP, TSH3, ESR, B12, CBC, LIPID #### [facility] [address] Lipid Panelon 12-22-2023 LDL Cholesterol,Calculated 123 mg/dL High 0-100 [facility] Comment on above: Order Comment: NON-F ASTING Result Comment: LDL ATP III CLASSIFICATION LDL less than 100 mg/dL Optimal LDL 100-129 mg/dL Near or above optimal LDL 130-159 mg/dL Borderline high LDL 160-189 mg/dL High LDL greater than 189 mg/dL Very high Performed By: #### A 1C WTH eA, CMP, TSH3, ESR, B12, CBC, LIPID #### [facility] [address] Triglyceride w/Reflex 151 mg/dL High 0-149 [facility] Comment on above: Order Comment: NON-F ASTING Result Comment: TRIG ATP III CLASSIFICATION TRIG less than 150 mg/dL Normal TRIG 150-199 mg/dL Borderline high TRIG 200-500 mg/dL High TRIG greater than 500 mg/dL Very high Standard traceable to the Center for Disease Conrtrol and Prevention (CDC) test method. Performed By: #### A 1C [facility] eA, CMP, TSH3, ESR, B12, CBC, LIPID #### [facility] [address] VLDL CHOLESTEROL 30 mg/dL Normal [facility] Comment on above: Order Comment: NON-F ASTING Performed By: #### A 1C [facility] eA, CMP, TSH3, ESR, B12, CBC, LIPID #### [facility] [address] Lymphocytes [#/volume] in Bl ood by Automated countOrdered By: Trever Limon on 12-22-2023 Lymphocytes (Bld) [#/Vol] 1.8 10*3/uL Normal 1.00-4.8 [facility] Comment on above: Performed By: #### A 1C [facility] eA, CMP, TSH3, ESR, B12, CBC, LIPID #### [facility] [address] Lymphocytes/100 leukocytes i n Blood by Automated countOrdered By: Trever Limon on 12-22-2023 Lymphocytes/100 WBC (Bld) 26.2 % Normal . [facility] Comment on above: Performed By: #### A 1C [facility] eA, CMP, TSH3, ESR, B12, CBC, LIPID #### [facility] [address] MCH [Entitic mass] by Automa mariam countOrdered By: Trever Limon on 12-22-2023 MCH (RBC) [Entitic mass] 30.3 pg Normal 24.7-34.3 [facility] Comment on above: Performed By: #### A 1C [facility] eA, CMP, TSH3, ESR, B12, CBC, LIPID #### [facility] [address] MCHC Auto (RBC) [Mass/Vol]Or dered By: Trever Limon on 12-22-2023 MCHC (RBC) [Mass/Vol] 34.9 g/dL 32.0-35.0 [facility] MCV [Entitic volume] by Auto mated countOrdered By: Trever Limon on 12-22-2023 MCV (RBC) [Entitic vol] 86.8 fL Normal 80-100 [facility] Comment on above: Performed By: #### A 1C WT eA, CMP, TSH3, ESR, B12, CBC, LIPID #### [facility] [address] Neutrophils [#/volume] in Bl ood by Automated countOrdered By: Trever Limon on 12-22-2023 Neutrophils (Bld) [#/Vol] 4.4 10*3/uL Normal 1.8-7.7 [facility] Comment on above: Performed By: #### A 1C WT eA, CMP, TSH3, ESR, B12, CBC, LIPID #### [facility] [address] [place] [address] No Panel InformationOrdered By: Trever Limon on 12-22-2023 Estimated GFR (CKD-EPI) > 60.0 mL/Min [facility] Creatinine Clearance (Chem N/A [facility] Nucleated erythrocytes [Pres ence] in Blood by Automated countOrdered By: Trever Limon on 12-22-2023 Nucleated RBC Auto Ql (Bld) 0.1 /100{WBC} 0-0.5 [facility] Platelet mean volume [Entiti c volume] in Blood by Automated countOrdered By: Trever Limon on 12-22-2023 Platelet mean volume (Bld) [Entitic vol] 7.5 fL Normal 6.3-10.7 [facility] Comment on above: Performed By: #### A 1C WTH eA, CMP, TSH3, ESR, B12, CBC, LIPID #### [facility] [address] Platelets [#/volume] in Bloo d by Automated countOrdered By: Trever Limon on 12-22-2023 Platelets (Bld) [#/Vol] 341 10*3/uL Normal 150-450 [facility] Comment on above: Performed By: #### A 1C [facility] eA, CMP, TSH3, ESR, B12, CBC, LIPID #### [facility] [address] Potassium [Moles/volume] in Serum or PlasmaOrdered By: Trever Limon on 12-22-2023 Potassium [Moles/Vol] 4.1 mmol/L Normal 3.5-5.1 [facility] Comment on above: Order Comment: NON-F ASTING Performed By: #### A 1C [facility] eA, CMP, TSH3, ESR, B12, CBC, LIPID #### [facility] [address] Protein [Mass/volume] in Ser um or PlasmaOrdered By: Trever Limon on 12-22-2023 Protein [Mass/Vol] 7.3 g/dL Normal 6.4-8.9 [facility] Comment on above: Order Comment: NON-F ASTING Performed By: #### A 1C [facility] eA, CMP, TSH3, ESR, B12, CBC, LIPID #### [facility] [address] Serum globulin measurement b y calculation (mass/volume)Ordered By: Trever Limon on 12-22-2023 Globulin (S) [Mass/Vol] 2.4 g/dL [facility] Comment on above: Order Comment: NON-F ASTING Performed By: #### A 1C [facility] eA, CMP, TSH3, ESR, B12, CBC, LIPID #### [facility] [address] Serum or plasma albumin/glob ulin mass ratioOrdered By: Trever Limon on 12-22-2023 Albumin/Globulin [Mass ratio] 2.0 {ratio} [facility] Comment on above: Order Comment: NON-F ASTING Performed By: #### A 1C WT eA, CMP, TSH3, ESR, B12, CBC, LIPID #### [facility] [address] Serum or plasma anion gap de terminationOrdered By: Trveer Limon on 12-22-2023 Anion gap [Moles/Vol] 12.6 mmol/L Normal 6.0-15.0 [facility] Comment on above: Order Comment: NON-F ASTING Performed By: #### A 1C WTH eA, CMP, TSH3, ESR, B12, CBC, LIPID #### [facility] [address] Serum or plasma high density lipoprotein (HDL) cholesterol measurementOrdered By: Trever Limon on 12-22-2023 Cholesterol in HDL [Mass/Vol] 53 mg/dL Normal 23-92 [facility] Comment on above: HDL CHOL ATP-III CLA SSIFICATION Cardiovascular RiskHDL > or equal to 60 mg/dL LOWHDL < 40 mg/dL HIGH Order Comment: NON-F ASTING Result Comment: HDL CHOL ATP-III CLASSIFICATION Cardiovascular Risk HDL > or equal to 60 mg/dL LOW HDL < 40 mg/dL HIGH Performed By: #### A 1C WTH eA, CMP, TSH3, ESR, B12, CBC, LIPID #### [facility] [address] Serum or plasma total choles terol/high density lipoprotein (HDL) cholesterol mass ratOrdered By: Trever Limon on 12-22-2023 Cholesterol.total/Chol esterol in HDL [Mass ratio] 3.9 {ratio} Normal <5.0 [facility] Comment on above: Order Comment: NON-F ASTING Performed By: #### A 1C WTH eA, CMP, TSH3, ESR, B12, CBC, LIPID #### [facility] [address] Sodium [Moles/volume] in Ser um or PlasmaOrdered By: Trever Limon on 12-22-2023 Sodium [Moles/Vol] 138 mmol/L Normal 136-145 [facility] Comment on above: Order Comment: NON-F ASTING Performed By: #### A 1C WTH eA, CMP, TSH3, ESR, B12, CBC, LIPID #### [facility] [address] Thyrotropin [Units/volume] i n Serum or PlasmaOrdered By: Trever Limon on 12-22-2023 TSH Qn 1.70 m[IU]/L Normal 0.45-5.33 [facility] Comment on above: Order Comment: NON-F ASTING Result Comment: PERF ORMED BY: [place] [address] PATHOLOGIST [employer] BRADLEY GRADY M.D. Performed By: #### G S, AERC #### [address] Triglyceride [Mass/volume] i n Serum or PlasmaOrdered By: Trever Limon on 12-22-2023 Triglyceride [Mass/Vol] 151 mg/dL High 0-149 [facility] Comment on above: TRIG ATP III CLASSIF ICATIONTRIG less than 150 mg/dL NormalTRIG 150-199 mg/dL Borderline highTRIG 200-500 mg/dL High TRIG greater than 500 mg/dL Very highStandard traceable to the Center for Disease Conrtrol and Prevention (CDC) test method. Urea nitrogen [Mass/volume] in Serum or PlasmaOrdered By: Trever Limon on 12-22-2023 Urea nitrogen [Mass/Vol] 13 mg/dL Normal 7-25 [facility] Comment on above: Order Comment: NON-F ASTING Performed By: #### A 1C WTH eA, CMP, TSH3, ESR, B12, CBC, LIPID #### [facility] [address] [place] [address] Vitamin B12 ser/plasOrdered By: Trever Limon on 12-22-2023 Cobalamin (Vitamin B12) [Mass/Vol] 507 pg/mL Normal 180-914 [facility] Comment on above: Order Comment: NON-F ASTING Performed By: #### G S, AERC #### [address] Aerobic Cultureon 11-30-2023 Aerobic Culture ORGANISM: Staphyloco ccus sp coag neg (O:STACN) Quantity of Growth Light Growth ORGANISM: Finegoldia magna (O:FINMAG) Quantity of Growth Moderate Growth Please contact Microbiology within 7 days if anaerobic susceptibilities are needed. Gram Stain Result No Bacteria Seen Aerobic NAGI Charge (PCMIC38) SUSCEPTIBILITY ORGANISM: O:STACN ANTIBIOTIC INTERPRETATION NAGI Azithromycin S <2 Ciprofloxacin S <1 Clindamycin S <0.25 Daptomycin S <0.5 Levofloxacin S <1 Linezolid S <1 Oxacillin S <0.25 Penicillin TAMIR >2 Tetracycline S <4 Trimethoprim/Sulfamethoxa zole S <0.5 Vancomycin S 0.5 S = SUSCEPTIBLE I = INTERMEDIATE R = RESISTANT BLANK = DATA NOT AVAILABLE, OR DRUG NOT ADVISABLE OR TESTED R* = RESISTANCE DUE TO EXTENDED SPECTRUM BETA-LACTAMASES ESBL = EXTENDED SPECTRUM BETA-LACTAMASE TFG = THYMIDINE-DEPENDENT STRAIN TAMIR = BETA-LACTAMASE POSITIVE IB = INDUCIBLE BETA-LACTAMASE. APPEARS IN PLACE OF 'S' WITH SPECIES KNOWN TO POSSESS INDUCIBLE BETA-LACTAMASES. POTENTIALLY THEY MAY BECOME RESISTANT TO ALL B-LACTAM DRUGS. PERFORMED BY: [place] [address] PATHOLOGIST [employer] BRADLEY GRADY M.D. Normal [facility] Comment on above: Performed By: #### G S, AERC #### [address] Gram Stainon 11-30-2023 Microscopic observation Gram stain Nom (Unsp spec) Gram Stain Result No Bacteria Seen PERFORMED BY: [place] [address] PATHOLOGIST [employer] BRADLEY GRADY M.D. Normal [facility] Comment on above: Performed By: #### G S, AERC #### [address] Gram stain for investigation of transfusion reactionOrdered By: Trever Limon on 11-30-2023 Microscopic observation Gram stain Nom (Unsp spec) Stanldia carola Abnormal [facility] HbA1c HPLC (Bld) [Mass fract ion]on 11-30-2023 HbA1c (Bld) [Mass fraction] 5.2 % [facility] Albumin [Mass/volume] in Ser um or Plasma by Bromocresol green (BCG) dye binding methoOrdered By: Trever Limon on 01-10-2023 Albumin BCG dye [Mass/Vol] 4.5 g/dL 3.5-5.7 [facility] Basophils Auto (Bld) [#/Vol] Ordered By: Trever Limon on 01-10-2023 Basophils (Bld) [#/Vol] 0.0 10*3/uL 0.0-0.2 [facility] Basophils/100 WBC Auto (Bld) Ordered By: Trever Limon on 01-10-2023 Basophils/100 WBC (Bld) 0.4 % . [facility] Bilirubin.total [Mass/volume ] in Serum or PlasmaOrdered By: Trever Limon on 01-10-2023 Bilirubin [Mass/Vol] 0.4 mg/dL 0.3-1.0 [facility] Calcium [Mass/volume] in Ser um or PlasmaOrdered By: Trever Limon on 01-10-2023 Calcium [Mass/Vol] 9.3 mg/dL 8.6-10.3 [facility] Carbon dioxide, total [Moles /volume] in Serum or PlasmaOrdered By: Trever Limon on 01-10-2023 CO2 [Moles/Vol] 25.3 mmol/L 21.0-31.0 [facility] Cholesterol in LDL Calc [Mas s/Vol]Ordered By: Trever Limon on 01-10-2023 Cholesterol in LDL [Mass/Vol] 65 mg/dL 0-100 [facility] Comment on above: LDL ATP III CLASSIFI CATIONLDL less than 100 mg/dL OptimalLDL 100-129 mg/dL Near or above optimalLDL 130-159 mg/dL Borderline highLDL 160-189 mg/dL HighLDL greater than 189 mg/dL Very high Cholesterol in VLDL Calc [Ma ss/Vol]Ordered By: Trever Limon on 01-10-2023 Cholesterol in VLDL [Mass/Vol] 55 mg/dL [facility] Complete Blood Count Auto Di ffon 01-10-2023 Basophils (Bld) [#/Vol] 0.789010308 10*3/uL Normal 0.0-0.2 10*3/uL [facility] Other Basophils/100 WBC (Bld) 0.400 % . % [facility] Other Eosinophils (Bld) [#/Vol] 0.179541789 10*3/uL Normal 0.0-0.45 10*3/uL [facility] Other Eosinophils/100 WBC (Bld) 1.100 % . % [facility] Other Erythrocyte distribution width (RBC) [Ratio] 14.000 % Normal 11.9-15.3 % [facility] Other Hematocrit (Bld) [Volume fraction] 37.200 % Normal 34.0-46.4 % [facility] Other Hemoglobin (Bld) [Mass/Vol] 13.760415 g/dL Normal 11.8-15.4 g/dL [facility] Other Lymphocytes (Bld) [#/Vol] 1.189092654 10*3/uL Normal 1.00-4.8 10*3/uL [facility] Other Lymphocytes/100 WBC (Bld) 16.900 % . % [facility] Other MCH (RBC) [Entitic mass] 30.3000 pg Normal 24.7-34.3 pg [facility] Other MCV (RBC) [Entitic vol] 87.1000 fL Normal 80-100 fL [facility] Other Monocytes (Bld) [#/Vol] 0.045694084 10*3/uL Normal 0.0-0.8 10*3/uL [facility] Other Monocytes/100 WBC (Bld) 6.000 % . % [facility] Other Neutrophils (Bld) [#/Vol] 5.196197594 10*3/uL Normal 1.8-7.7 10*3/uL [facility] Other Neutrophils/100 WBC (Bld) 75.600 % . % [facility] Other Platelet mean volume (Bld) [Entitic vol] 7.6000 fL Normal 6.3-10.7 fL [facility] Other WBC (Bld) [#/Vol] 7.809024597 10*3/uL Normal 3.8 -11.6 10*3/uL [facility] Other Complete Blood Count Auto Diff 7.4 10*3/uL Normal 3.8-11.6 10*3/uL [facility] Other Complete Blood Count Auto Diff 34.8 g/dL Normal 32.0-35.0 g/dL [facility] Other Complete Blood Count Auto Diff 0.1 /100{WBC} Normal 0-0.5 /100{WBC} [facility] Other Complete Blood Count Auto Di ffOrdered By: Trever Limon on 01-10-2023 Platelets (Bld) [#/Vol] 321 10*3/uL 150-450 [facility] RBC (Bld) [#/Vol] 4.27 10*6/uL 3.60-5.00 [facility] Comprehensive Metabolic Pane mirella 01-10-2023 Albumin [Mass/Vol] 4.546931 g/dL Normal 3.5-5.7 g/dL [facility] Other Bilirubin [Mass/Vol] 0.6780881 mg/dL Normal 0.3- 1.0 mg/dL [facility] Other Calcium [Mass/Vol] 9.8084450 mg/dL Normal 8.6-10 .3 mg/dL [facility] Other CO2 [Moles/Vol] 25.77645667 mmol/L Normal 21.0-3 1.0 mmol/L [facility] Other Creatinine [Mass/Vol] 0.89297262 mg/dL Normal 0. 60-1.20 mg/dL [facility] Other GFR/1.73 sq M.predicted MDRD (S/P/Bld) [Vol rate/Area] mL/min/{1.73_m2} [facility] Other Potassium [Moles/Vol] 4.30080889 mmol/L Normal 3 .5-5.1 mmol/L [facility] Other Protein [Mass/Vol] 6.994265 g/dL Normal 6.4-8.9 g/dL [facility] Other Comprehensive Metabolic Panel 2.4 g/dL [facility] Other Comprehensive Metabolic Pane lOrdered By: Trever Limon on 01-10-2023 Albumin/Globulin [Mass ratio] 1.9 {ratio} [facility] ALP [Catalytic activity/Vol] 93 U/L 34-104 [facility] ALT [Catalytic activity/Vol] 15 U/L 7-52 [facility] AST [Catalytic activity/Vol] 14 U/L 13-39 [facility] Chloride [Moles/Vol] 106 mmol/L 98-107 [facility] Glucose [Mass/Vol] 94 mg/dL 70-100 [facility] Comment on above: ADA recommended refe rence rangeRandom Glucose Reference Range is dependent on time and content of last meal. Glucose of more than 200 mg/dL in a nonstressed, ambulatory subject supports the diagnosis of Diabetes Mellitus. Sodium [Moles/Vol] 138 mmol/L 136-145 [facility] Urea nitrogen [Mass/Vol] 14 mg/dL 7-25 [facility] Creatinine [Mass/volume] in Serum or PlasmaOrdered By: Trever Limon on 01-10-2023 Creatinine [Mass/Vol] 0.66 mg/dL 0.60-1.20 [facility] D-Dimer High Sensitivityon 1 0-02-2023 D-Dimer High Sensitivity < 200 Normal 0-243 [facility] Other Eosinophils Auto (Bld) [#/Vo l]Ordered By: Trever Limon on 01-10-2023 Eosinophils (Bld) [#/Vol] 0.1 10*3/uL 0.0-0.45 [facility] Eosinophils/100 WBC Auto (Bl d)Ordered By: Trever Limon on 01-10-2023 Eosinophils/100 WBC (Bld) 1.1 % . [facility] Erythrocyte distribution wid th Auto (RBC) [Ratio]Ordered By: Trever Limon on 01-10-2023 Erythrocyte distribution width (RBC) [Ratio] 14.0 % 11.9-15.3 [facility] Fibrin D-dimer [Presence] in Platelet poor plasma by Latex agglutinationOrdered By: Trever Limon on 01-10-2023 Fibrin D-dimer LA Ql (PPP) < 200 ng/mL 0-243 [facility] Comment on above: The reference range for D-dimer is <243 ng/mL D-dimer units.D-dimer results must be used in conjunction with a clinicalpretest probability (PTP) assessment model for deep veinthrombosis (DVT) and pulmonary embolism (PE). Results <230ng/mL d-dimer units can be used as a negative predictor inpatients with low or moderate probability for DVT/PE.Results above the exclusion threshold of 230 ng/ml D-dimerunits for DVT/PE may indicate the need for furtherdiagnostic testing.D-Dimer can be increased in hospitalized patients due toco-morbid conditions.A hematocrit value greater than 55% may lead to inaccurate results in coagulation testing. Patients having hematocrit values >55% require a special collection tube for coagulation studies. Please contact the laboratory at [phone] for redraw instructions. Globulin Calc (S) [Mass/Vol] Ordered By: Trever Limon on 01-10-2023 Globulin (S) [Mass/Vol] 2.4 g/dL [facility] Hematocrit Auto (Bld) [Volum e fraction]Ordered By: Trever Limon on 01-10-2023 Hematocrit (Bld) [Volume fraction] 37.2 % 34.0-46.4 [facility] Hemoglobin [Mass/volume] in BloodOrdered By: Trever Limon on 01-10-2023 Hemoglobin (Bld) [Mass/Vol] 13.0 g/dL 11.8-15.4 [facility] Leukocytes [#/volume] correc mariam for nucleated erythrocytes in Blood by Automated counOrdered By: Trever Limon on 01-10-2023 WBC corrected for nucl RBC Auto (Bld) [#/Vol] 7.4 10*3/uL 3.8-11.6 [facility] Lipid Panelon 01-10-2023 Cholesterol in LDL Elph Qn 65 mg/dL Normal 0-100 mg/dL [facility] [employer] Other Lipid Panel 279 mg/dL High 0-149 mg/dL [facility] [employer] Other Lipid Panel 55 mg/dL [facility] [employer] Other Lipid PanelOrdered By: Trever Limon on 01-10-2023 Cholesterol [Mass/Vol] 166 mg/dL 140-200 [facility] Comment on above: Chol less than 200 m g/dl low riskChol 201-239 mg/dl borderline riskChol 240 mg/dl and greater high risk Cholesterol in HDL [Mass/Vol] 45 mg/dL 23-92 [facility] Comment on above: HDL CHOL ATP-III CLA SSIFICATION Cardiovascular RiskHDL > or equal to 60 mg/dL LOWHDL < 40 mg/dL HIGH Cholesterol.total/Chol esterol in HDL [Mass ratio] 3.7 {ratio} <5.0 [facility] Lymphocytes Auto (Bld) [#/Vo l]Ordered By: Trever Limon on 01-10-2023 Lymphocytes (Bld) [#/Vol] 1.3 10*3/uL 1.00-4.8 [facility] Lymphocytes/100 WBC Auto (Bl d)Ordered By: Trever Limon on 01-10-2023 Lymphocytes/100 WBC (Bld) 16.9 % . [facility] MCH Auto (RBC) [Entitic mass ]Ordered By: Trever Limon on 01-10-2023 MCH (RBC) [Entitic mass] 30.3 pg 24.7-34.3 [facility] MCHC Auto (RBC) [Mass/Vol]Or dered By: Trever Limon on 01-10-2023 MCHC (RBC) [Mass/Vol] 34.8 g/dL 32.0-35.0 [facility] MCV Auto (RBC) [Entitic vol] Ordered By: Trever Limon on 01-10-2023 MCV (RBC) [Entitic vol] 87.1 fL 80-100 [facility] Monocytes Auto (Bld) [#/Vol] Ordered By: Trever Limon on 01-10-2023 Monocytes (Bld) [#/Vol] 0.4 10*3/uL 0.0-0.8 [facility] Monocytes/100 WBC Auto (Bld) Ordered By: Trever Limon on 01-10-2023 Monocytes/100 WBC (Bld) 6.0 % . [facility] Neutrophils Auto (Bld) [#/Vo l]Ordered By: Trever Limon on 01-10-2023 Neutrophils (Bld) [#/Vol] 5.6 10*3/uL 1.8-7.7 [facility] Neutrophils/100 WBC Auto (Bl d)Ordered By: Trever Limon on 01-10-2023 Neutrophils/100 WBC (Bld) 75.6 % . [facility] No Panel InformationOrdered By: Trever Limon on 01-10-2023 Estimated GFR (CKD-EPI) > 60.0 mL/Min [facility] Pharmacy Creatinine Clearance (Chem N/A [facility] Nucleated erythrocytes [Pres ence] in Blood by Automated countOrdered By: Terver Limon on 01-10-2023 Nucleated RBC Auto Ql (Bld) 0.1 /100{WBC} 0-0.5 [facility] Platelet mean volume Auto (B ld) [Entitic vol]Ordered By: Trever Limon on 01-10-2023 Platelet mean volume (Bld) [Entitic vol] 7.6 fL 6.3-10.7 [facility] Potassium [Moles/volume] in Serum or PlasmaOrdered By: Trever Limon on 01-10-2023 Potassium [Moles/Vol] 4.6 mmol/L 3.5-5.1 [facility] Protein [Mass/volume] in Ser um or PlasmaOrdered By: Trever Limon on 01-10-2023 Protein [Mass/Vol] 6.9 g/dL 6.4-8.9 [facility] Serum or plasma anion gap de terminationOrdered By: Trever Limon on 01-10-2023 Anion gap [Moles/Vol] 11.3 mmol/L 6.0-15.0 [facility] Thyroid Stimulating Hormoneo n 01-10-2023 TSH Qn 1.14978572176 m[IU]/L Normal 0.45-5 .33 u[iU]/mL [employer] [facility] [employer] Other Thyrotropin [Units/volume] i n Serum or PlasmaOrdered By: Trever Limon on 01-10-2023 TSH Qn 1.57 m[IU]/L 0.45-5.33 [facility] Triglyceride [Mass/volume] i n Serum or PlasmaOrdered By: Trever Limon on 01-10-2023 Triglyceride [Mass/Vol] 279 mg/dL 0-149 [facility] Comment on above: TRIG ATP III CLASSIF ICATIONTRIG less than 150 mg/dL NormalTRIG 150-199 mg/dL Borderline highTRIG 200-500 mg/dL High TRIG greater than 500 mg/dL Very highStandard traceable to the Center for Disease Conrtrol and Prevention (CDC) test method. Troponin I High Sensitivityo n 01-10-2023 Troponin I High Sensitivity < 2.3 Normal 0.0-15.0 [facility] [employer] Other Troponin I.cardiac [Mass/vol ume] in Serum or Plasma by Detection limit <= 0.01 ng/Ordered By: Trever Limon on 01-10-2023 Troponin I.cardiac DL <= 0.01 ng/mL [Mass/Vol] < 2.3 pg/mL 0.0-15.0 [facility] WBC Auto (Bld) [#/Vol]Ordere d By: Trever Limon on 01-10-2023 WBC (Bld) [#/Vol] 7.4 10*3/uL 3.8-11.6 [facility] Basophils Auto (Bld) [#/Vol] Ordered By: Trever Limon on 10-29-2021 Basophils (Bld) [#/Vol] 0.0 10*3/uL 0.0-0.2 [facility] Basophils/100 WBC Auto (Bld) Ordered By: Trever Limon on 10-29-2021 Basophils/100 WBC (Bld) 0.8 % . [facility] Blood hemoglobin measurement (mass/volume)Ordered By: Trever Limon on 10-29-2021 Hemoglobin (Bld) [Mass/Vol] 12.9 g/dL 11.8-15.4 [facility] Blood leukocytes automated c ount (number/volume)Ordered By: Trever Limon on 10-29-2021 WBC (Bld) [#/Vol] 5.4 10*3/uL 4.5-11.0 [facility] Body fluid albumin measureme nt (mass/volume)Ordered By: Trever Limon on 10-29-2021 Albumin (Body fld) [Mass/Vol] 3.9 g/dL 3.2-5.5 [facility] Cholesterol [Mass/volume] in Serum or PlasmaOrdered By: Trever Limon on 10-29-2021 Cholesterol [Mass/Vol] 187 mg/dL 140-200 [facility] Comment on above: Chol less than 200 m g/dl low risk Chol 201-239 mg/dl borderline risk Chol 240 mg/dl and greater high risk Cholesterol in LDL Calc [Mas s/Vol]Ordered By: Trever Limon on 10-29-2021 Cholesterol in LDL [Mass/Vol] 111 mg/dL 0-100 [facility] Comment on above: LDL ATP III CLASSIFI CATION LDL less than 100 mg/dL Optimal LDL 100-129 mg/dL Near or above optimal LDL 130-159 mg/dL Borderline high LDL 160-189 mg/dL High LDL greater than 189 mg/dL Very high Cholesterol in VLDL Calc [Ma ss/Vol]Ordered By: Trever Limon on 10-29-2021 Cholesterol in VLDL [Mass/Vol] 23 mg/dL [facility] Creatinine and Glomerular fi ltration rate.predicted panel (S/P/Bld)Ordered By: Trever Limon on 10-29-2021 Creatinine [Mass/Vol] 0.65 mg/dL 0.44-1.03 [facility] Eosinophils Auto (Bld) [#/Vo l]Ordered By: Trever Limon on 10-29-2021 Eosinophils (Bld) [#/Vol] 0.1 10*3/uL 0.0-0.45 [facility] Eosinophils/100 WBC Auto (Bl d)Ordered By: Trever Limon on 10-29-2021 Eosinophils/100 WBC (Bld) 1.5 % . [facility] Erythrocyte distribution wid th Auto (RBC) [Ratio]Ordered By: Trever Limon on 10-29-2021 Erythrocyte distribution width (RBC) [Ratio] 13.9 % 11.9-15.3 [facility] Estimated glomerular filtrat ion rate (GFR) non- AmericanOrdered By: Trever Limon on 10-29-2021 GFR/1.73 sq M.predicted among non-blacks MDRD (S/P/Bld) [Vol rate/Area] > 60 mL/Min [facility] Globulin Calc (S) [Mass/Vol] Ordered By: Trever Limon on 10-29-2021 Globulin (S) [Mass/Vol] 2.4 g/dL [facility] Hematocrit Auto (Bld) [Volum e fraction]Ordered By: Trever Limon on 10-29-2021 Hematocrit (Bld) [Volume fraction] 37.8 % 34.0-46.4 [facility] Laboratory - Hematology and Cell countsOrdered By: Trever Limon on 10-29-2021 Nucleated RBC/100 WBC (Bld) [Ratio] 0.1 % 0-0.5 [facility] Lymphocytes Auto (Bld) [#/Vo l]Ordered By: Trever Limon on 10-29-2021 Lymphocytes (Bld) [#/Vol] 1.2 10*3/uL 1.00-4.8 [facility] Lymphocytes/100 WBC Auto (Bl d)Ordered By: Trever Limon on 10-29-2021 Lymphocytes/100 WBC (Bld) 22.6 % . [facility] MCH Auto (RBC) [Entitic mass ]Ordered By: Trever Limon on 10-29-2021 MCH (RBC) [Entitic mass] 30.3 pg 24.7-34.3 [facility] MCHC Auto (RBC) [Mass/Vol]Or dered By: Trever Limon on 10-29-2021 MCHC (RBC) [Mass/Vol] 34.2 g/dL 32.0-35.0 [facility] MCV Auto (RBC) [Entitic vol] Ordered By: Trever Limon on 10-29-2021 MCV (RBC) [Entitic vol] 88.6 fL 80-100 [facility] Monocytes Auto (Bld) [#/Vol] Ordered By: Trever Limon on 10-29-2021 Monocytes (Bld) [#/Vol] 0.4 10*3/uL 0.0-0.8 [facility] Monocytes/100 WBC Auto (Bld) Ordered By: Trever Limon on 10-29-2021 Monocytes/100 WBC (Bld) 6.7 % . [facility] Neutrophils Auto (Bld) [#/Vo l]Ordered By: Trever Limon on 10-29-2021 Neutrophils (Bld) [#/Vol] 3.7 10*3/uL 1.8-7.7 [facility] Neutrophils/100 WBC Auto (Bl d)Ordered By: Trever Limon on 10-29-2021 Neutrophils/100 WBC (Bld) 68.4 % . [facility] No Panel InformationOrdered By: Trever Limon on 10-29-2021 Estimated GFR () > 60 mL/Min [facility] Comment on above: GFR estimated refere nce range: According to KDOQI guidelines, <60 ml/min/1.73m2 is sufficient to diagnose a patient with chronic kidney disease. Pharmacy Creatinine Clearance (Chem N/A [facility] Platelet mean volume Auto (B ld) [Entitic vol]Ordered By: Trever Limon on 10-29-2021 Platelet mean volume (Bld) [Entitic vol] 7.7 fL 6.3-10.7 [facility] Platelets Auto (Bld) [#/Vol] Ordered By: Trever Limon on 10-29-2021 Platelets (Bld) [#/Vol] 309 10*3/uL 150-450 [facility] Protein [Mass/volume] in Ser um or PlasmaOrdered By: Trever Limon on 10-29-2021 Protein [Mass/Vol] 6.3 g/dL 6.1-7.9 [facility] RBC Auto (Bld) [#/Vol]Ordere d By: Trever Limon on 10-29-2021 RBC (Bld) [#/Vol] 4.27 10*6/uL 3.60-5.00 [facility] Serum or plasma alanine jerry otransferase measurement without P-5'-P (enzymatic activiOrdered By: Trever Limon on 10-29-2021 ALT No additional P-5'-P [Catalytic activity/Vol] 19 U/L 10-60 [facility] Serum or plasma albumin/glob ulin mass ratioOrdered By: Trever Limon on 10-29-2021 Albumin/Globulin [Mass ratio] 1.6 {ratio} [facility] Serum or plasma alkaline belinda sphatase measurement (enzymatic activity/volume)Ordered By: Trever Limon on 10-29-2021 ALP [Catalytic activity/Vol] 56 U/L 32-92 [facility] Serum or plasma aspartate am inotransferase measurement (enzymatic activity/volume)Ordered By: Trever Limon on 10-29-2021 AST [Catalytic activity/Vol] 17 U/L 10-42 [facility] Serum or plasma calcium ankit urement (mass/volume)Ordered By: Trever Limon on 10-29-2021 Calcium [Mass/Vol] 9.2 mg/dL 8.2-10.2 [facility] Serum or plasma chloride shin surement (moles/volume)Ordered By: Trever Limon on 10-29-2021 Chloride [Moles/Vol] 107 mmol/L 95-114 [facility] Serum or plasma follitropin measurement (units/volume)Ordered By: Trever Limon on 10-29-2021 Follitropin Qn 1.8 m[IU]/mL [facility] Comment on above: FEMALE NORMALS (BLAKE ENOPAUSE) MID-FOLLICULAR PHASE: 3.9-8.8 mIU/mL MID-CYCLE PEAK: 4.5-22.5 mIU/mL MID-LUTEAL PHASE: 1.8-5.1 mIU/mL FEMALE NORMALS (POSTMENOPAUSE): 16.7-113.6 mIU/mL MALE NORMALS: 1.3-19.3 mIU/mL Serum or plasma glucose ankit urement (mass/volume)Ordered By: Trever Limon on 10-29-2021 Glucose [Mass/Vol] 83 mg/dL 70-100 [facility] Comment on above: ADA recommended refe rence range Random Glucose Reference Range is dependent on time and content of last meal. Glucose of more than 200 mg/dL in a nonstressed, ambulatory subject supports the diagnosis of Diabetes Mellitus. Serum or plasma high density lipoprotein (HDL) cholesterol measurementOrdered By: Trever Limon on 10-29-2021 Cholesterol in HDL [Mass/Vol] 52 mg/dL 35-85 [facility] Comment on above: HDL CHOL ATP-III CLA SSIFICATION Cardiovascular Risk HDL > or equal to 60 mg/dL LOW HDL < 40 mg/dL HIGH Serum or plasma potassium me asurement (moles/volume)Ordered By: Trever Limon on 10-29-2021 Potassium [Moles/Vol] 4.2 mmol/L 3.5-5.1 [facility] Serum or plasma sodium measu rement (moles/volume)Ordered By: Trever Limon on 10-29-2021 Sodium [Moles/Vol] 137 mmol/L 136-146 [facility] Serum or plasma total biliru bin measurement (mass/volume)Ordered By: Trever Limon on 10-29-2021 Bilirubin [Mass/Vol] 0.5 mg/dL 0.3-1.2 [facility] Serum or plasma total carbon dioxide measurement (moles/volume)Ordered By: Trever Limon on 10-29-2021 CO2 [Moles/Vol] 24.2 mmol/L 22.0-30.0 [facility] Serum or plasma total choles terol/high density lipoprotein (HDL) cholesterol mass ratOrdered By: Trever Limon on 10-29-2021 Cholesterol.total/Chol esterol in HDL [Mass ratio] 3.6 {ratio} <5.0 [facility] Serum or plasma urea nitroge n measurement (mass/volume)Ordered By: Trever Limon on 10-29-2021 Urea nitrogen [Mass/Vol] 11 mg/dL 9-23 [facility] TSH DL <= 0.005 mIU/L QnOrde red By: Trever Limon on 10-29-2021 TSH Qn 1.64 m[IU]/L 0.45-5.33 [facility] Triglyceride [Mass/volume] i n Serum or PlasmaOrdered By: Trever Limon on 10-29-2021 Triglyceride [Mass/Vol] 118 mg/dL 35-149 [facility] Comment on above: TRIG ATP III CLASSIF ICATION TRIG less than 150 mg/dL Normal TRIG 150-199 mg/dL Borderline high TRIG 200-500 mg/dL High TRIG greater than 500 mg/dL Very high Standard traceable to the Center for Disease Conrtrol and Prevention (CDC) test method. COVID + FLU Quick Testingon 05-04-2021 SARS-CoV-2 (COVID-19) RNA SAMIA+probe Ql (Unsp spec) Positive [facility] Other COVID + FLU Quick Testing Negative [facility] Other COVID Quick Testingon 2021 Result Negative [facility] Other CNOVon 08-04-2017 CNOV Office Visit (VIDAL) RITA JASON ([id number]) 1975 FDate Time Provider Department08/04/17 12:30 PM INFUSION MAIN CHAIR 2 VIDAL During your visit today, we recorded the following information about you: Pulse Respiration Blood pressure 67/minute 16/minute 124/75Jemal Huang RN 08/04/2017 2:41 PM [id number]: Patient ambulated into treatment room for IV infusions. Headacheassessment completed. Patient rated headache 4/10. Patient denied nausea anddenied dizziness. Patient educated on medications to be administered. Patientverbalized understanding and agreed to proceed with infusions. IV started inleft hand; IVF started.1400: Patients infusions complete. Pt tolerated infusion well. Pt stateddecrease in headache to 1/10. Pt denied nausea or dizziness. Post infusion BP124/75. Pts IV removed intact; dressing applied. After visit summary given topatient.Referring Provider: SELF [[id number]]Allergies As of Date: 08/04/2017 Noted Allergy ReactionVANTIN (CEFPODOXIME) 09/22/2016 2 - RashDate Reviewed: 08/04/2017Reviewed by: Jemal Huang RN - Fully AssessedReason for Visit: Infusion [464] Headache [52]Primary Visit Diagnosis:Status migrainosus [G43.901]Order(s):NaCl 0.9% iv infusionDisp: Rfl: diphenhydrAMINE 50 mg injection (BENADRYL)Disp: Rfl: famotidine 20 mg injection (PEPCID)Disp: Rfl: hydrocortisone sodium succinate (PF) 100 mg injection (Solu-CORTEF)Disp: Rfl: SALINE LOCK INSERTION [[id number]] Order #: [id number]: 1 NaCl 0.9% iv infusionDisp: Rfl: NaCl (PF) 0.9% 10-20 mL injectionDisp: Rfl: HEMONC - NURSING COMMUNICATION [[id number]] Order #: [id number]: 1 heparin 100 unit/mL 500 Units injectionDisp: Rfl: NaCl (PF) 0.9% 10-20 mL injectionDisp: Rfl: HCG QUAL UR [SQUHCG] Order #: [id number] FUTURE [] NaCl 0.9% 1,000 mL iv bolusDisp: Rfl: [] ondansetron (PF) 8 mg injection (ZOFRAN)Disp: Rfl: promethazine 25 mg tab(s) (PHENERGAN)Disp: Rfl: propranolol 10 mg tab(s) (INDERAL)Disp: Rfl: [] diphenhydrAMINE 25 mg injection (BENADRYL)Disp: Rfl: [] ketorolac 30 mg injection (TORADOL)Disp: Rfl: magnesium sulfate 2 g in NaCl 0.9% 250 mLDisp: Rfl: [] methocarbamol iv infusion 1,000 mg in NaCl 0.9% 100 mL (ROBAXIN)Disp: Rfl: [] methylPREDNISolone sodium succinate 500 mg in NaCl 0.9% 100 mL (Solu-MEDROL)Disp: Rfl: [] valproate sodium 1,000 mg in NaCl 0.9% 250 mL (DEPACON)Disp: Rfl: cyproheptadine 4 mg tab(s) (PERIACTIN)Disp: Rfl: QUEtiapine 25 mg tab(s) (SEROquel)Disp: Rfl: cloNIDine HCl 0.1 mg tab(s) (CATAPRES)Disp: Rfl:Prescriptions as of 08/04/2017 Sig: VENLAFAXINE ER 75 MG CAPSULE,* Take 1 capsule by mouth once * PREDNISONE 10 MG TABLET Take 1 tablet by mouth once d* ELETRIPTAN HBR 40 MG TABLET Take 40 mg by mouth as needed*Problem List As Of Date 08/04/2017 Noted Resolved Multiple thyroid nodules [E04.2] INVALID FOR* Vocal cord paralysis, unilateral complete [J38.*INVALID FOR*Prescriptions ordered this encounter Disp Refills Start End SODIUM CHLORIDE 0.9 % INTRAVENOUS SO* 08/04/2017 Route: INTRAVENOUS DIPHENHYDRAMINE 50 MG/ML INJECTION S* 08/04/2017 Route: INTRAVENOUS FAMOTIDINE (PF) 20 MG/2 ML INTRAVENO* 08/04/2017 Route: INTRAVENOUS HYDROCORTISONE SOD SUCCINATE (PF) 10* 08/04/2017 Route: INTRAVENOUS SODIUM CHLORIDE 0.9 % INTRAVENOUS SO* 08/04/2017 Route: INTRAVENOUS SODIUM CHLORIDE 0.9 % INJECTION SOLU* 08/04/2017 Route: INTRAVENOUS HEPARIN LOCK FLUSH (PORCINE) 100 UNI* 08/04/2017 Route: INTRAVENOUS SODIUM CHLORIDE 0.9 % INJECTION SOLU* 08/04/2017 Route: INTRAVENOUS SODIUM CHLORIDE 0.9 % IV BOLUS 1000 * 08/04/2017 08/04/2017 Route: INTRAVENOUS ONDANSETRON HCL (PF) 4 MG/2 ML INJEC* 08/04/2017 08/04/2017 Route: INTRAVENOUS PROMETHAZINE 25 MG TABLET 08/04/2017 Route: ORAL PROPRANOLOL 10 MG TABLET 08/04/2017 Route: ORAL DIPHENHYDRAMINE 50 MG/ML INJECTION S* 08/04/2017 08/04/2017 Route: INTRAVENOUS KETOROLAC 30 MG/ML (1 ML) INJECTION * 08/04/2017 08/04/2017 Route: INTRAVENOUS MAGNESIUM SULFATE IV PIGGYBACK 2 GRA* 08/04/2017 08/05/2017 Route: INTRAVENOUS METHOCARBAMOL IV INFUSION 1,000 MG I* 08/04/2017 08/04/2017 Route: INTRAVENOUS METHYLPREDNISOLONE IV PGBK 08/04/2017 08/04/2017 Route: INTRAVENOUS VALPROATE IVPB 08/04/2017 08/04/2017 Route: INTRAVENOUS CYPROHEPTADINE 4 MG TABLET 08/04/2017 Route: ORAL QUETIAPINE 25 MG TABLET 08/04/2017 Route: ORAL CLONIDINE HCL 0.1 MG TABLET 08/04/2017 Route: ORALEncounter Number: [id number] Status:Closed by JEMAL HUANG RN on 08/04/17 Normal [facility] PROGRESSon 08-04-2017 PROGRESS HNO ID: [id number] thor: Jemal Huang RNService: (none)Author Type: (none)Type: Progress NotesFiled: 08/04/2017 2:41 PMNote Text:1010: Patient ambulated into treatment room for IV infusions. Headacheassessment completed. Patient rated headache 4/10. Patient denied nauseaand denied dizziness. Patient educated on medications to be administered.Patient verbalized understanding and agreed to proceed with infusions. IVstarted in left hand; IVF started.1400: Patients infusions complete. Pt tolerated infusion well. Pt stateddecrease in headache to 1/10. Pt denied nausea or dizziness. Post infusionBP 124/75. Pts IV removed intact; dressing applied. After visit summarygiven to patient. Normal [facility] CNOVon 08-03-2017 CNOV Office Visit (VIDAL) RITA JASON ([id number]) 1975 FDate Time Provider Department08/03/17 12:30 PM INFUSION MAIN CHAIR [place] DRAKE During your visit today, we recorded the following information about you: Pulse Respiration Blood pressure 91/minute 16/minute 126/79eJmal Huang RN 08/03/2017 2:41 PM [id number]: Patient ambulated into treatment room for IV infusions. Headacheassessment completed. Patient rated headache 5/10. Patient denied nausea andstated moderate dizziness. Patient educated on medications to be administered.Patient verbalized understanding and agreed to proceed with infusions. IVstarted in right hand; IVF started.1435: Pts infusions complete. Pt tolerated infusions well. Pt rated headache2/10. Pt denied nausea or dizziness. Post infusion BP 126/79. Pts IV removedintact; dressing applied.Referring Provider: SELF [200]Allergies As of Date: 08/03/2017 Noted Allergy ReactionVANTIN (CEFPODOXIME) 09/22/2016 2 - RashDate Reviewed: 08/03/2017Reviewed by: Jemal Huang RN - Fully AssessedReason for Visit: Infusion [464] Headache [52]Primary Visit Diagnosis:Status migrainosus [G43.901]Order(s):NaCl 0.9% iv infusionDisp: Rfl: diphenhydrAMINE 50 mg injection (BENADRYL)Disp: Rfl: famotidine 20 mg injection (PEPCID)Disp: Rfl: hydrocortisone sodium succinate (PF) 100 mg injection (Solu-CORTEF)Disp: Rfl: SALINE LOCK INSERTION [[id number]] Order #: [id number]: 1 NaCl 0.9% iv infusionDisp: Rfl: NaCl (PF) 0.9% 10-20 mL injectionDisp: Rfl: HEMON - NURSING COMMUNICATION [[id number]] Order #: [id number]: 1 heparin 100 unit/mL 500 Units injectionDisp: Rfl: NaCl (PF) 0.9% 10-20 mL injectionDisp: Rfl: HCG QUAL UR [SQUHCG] Order #: [id number] FUTURE [] NaCl 0.9% 1,000 mL iv bolusDisp: Rfl: [] ondansetron (PF) 8 mg injection (ZOFRAN)Disp: Rfl: promethazine 25 mg tab(s) (PHENERGAN)Disp: Rfl: propranolol 10 mg tab(s) (INDERAL)Disp: Rfl: cyproheptadine 4 mg tab(s) (PERIACTIN)Disp: Rfl: [] diphenhydrAMINE 25 mg injection (BENADRYL)Disp: Rfl: [] methylPREDNISolone sodium succinate 500 mg in NaCl 0.9% 100 mL (Solu-MEDROL)Disp: Rfl: [] methocarbamol iv infusion 1,000 mg in NaCl 0.9% 100 mL (ROBAXIN)Disp: Rfl: [] valproate sodium 500 mg in NaCl 0.9% 250 mL (DEPACON)Disp: Rfl: magnesium sulfate 2 g in NaCl 0.9% 250 mLDisp: Rfl: [] ketorolac 30 mg injection (TORADOL)Disp: Rfl: diphenhydrAMINE 25 mg injection (BENADRYL)Disp: Rfl: propranolol 10 mg tab(s) (INDERAL)Disp: Rfl: QUEtiapine 25 mg tab(s) (SEROquel)Disp: Rfl: cloNIDine HCl 0.1 mg tab(s) (CATAPRES)Disp: Rfl:Prescriptions as of 08/03/2017 Sig: VENLAFAXINE ER 75 MG CAPSULE,* Take 1 capsule by mouth once * PREDNISONE 10 MG TABLET Take 1 tablet by mouth once d* ELETRIPTAN HBR 40 MG TABLET Take 40 mg by mouth as needed*Problem List As Of Date 08/03/2017 Noted Resolved Multiple thyroid nodules [E04.2] INVALID FOR* Vocal cord paralysis, unilateral complete [J38.*INVALID FOR*Prescriptions ordered this encounter Disp Refills Start End SODIUM CHLORIDE 0.9 % INTRAVENOUS SO* 08/03/2017 Route: INTRAVENOUS DIPHENHYDRAMINE 50 MG/ML INJECTION S* 08/03/2017 Route: INTRAVENOUS FAMOTIDINE (PF) 20 MG/2 ML INTRAVENO* 08/03/2017 Route: INTRAVENOUS HYDROCORTISONE SOD SUCCINATE (PF) 10* 08/03/2017 Route: INTRAVENOUS SODIUM CHLORIDE 0.9 % INTRAVENOUS SO* 08/03/2017 Route: INTRAVENOUS SODIUM CHLORIDE 0.9 % INJECTION SOLU* 08/03/2017 Route: INTRAVENOUS HEPARIN LOCK FLUSH (PORCINE) 100 UNI* 08/03/2017 Route: INTRAVENOUS SODIUM CHLORIDE 0.9 % INJECTION SOLU* 08/03/2017 Route: INTRAVENOUS SODIUM CHLORIDE 0.9 % IV BOLUS 1000 * 08/03/2017 08/03/2017 Route: INTRAVENOUS ONDANSETRON HCL (PF) 4 MG/2 ML INJEC* 08/03/2017 08/03/2017 Route: INTRAVENOUS PROMETHAZINE 25 MG TABLET 08/03/2017 Route: ORAL PROPRANOLOL 10 MG TABLET 08/03/2017 Route: ORAL CYPROHEPTADINE 4 MG TABLET 08/03/2017 Route: ORAL DIPHENHYDRAMINE 50 MG/ML INJECTION S* 08/03/2017 08/03/2017 Route: INTRAVENOUS METHYLPREDNISOLONE IV PGBK 08/03/2017 08/03/2017 Route: INTRAVENOUS METHOCARBAMOL IV INFUSION 1,000 MG I* 08/03/2017 08/03/2017 Route: INTRAVENOUS VALPROATE IVPB 08/03/2017 08/03/2017 Route: INTRAVENOUS MAGNESIUM SULFATE IV PIGGYBACK 2 GRA* 08/03/2017 08/03/2017 Route: INTRAVENOUS KETOROLAC 30 MG/ML (1 ML) INJECTION * 08/03/2017 08/03/2017 Route: INTRAVENOUS DIPHENHYDRAMINE 50 MG/ML INJECTION S* 08/03/2017 Route: INTRAVENOUS PROPRANOLOL 10 MG TABLET 08/03/2017 Route: ORAL QUETIAPINE 25 MG TABLET 08/03/2017 Route: ORAL CLONIDINE HCL 0.1 MG TABLET 08/03/2017 Route: ORALEncounter Number: [id number] Status:Closed by [facility] JEMAL ARIAS on 08/03/17 Normal [facility] PROGRESSon 08-03-2017 PROGRESS HNO ID: [id number] thor: Jemal [facility] RNService: (none)Author Type: (none)Type: Progress NotesFiled: 08/03/2017 2:41 PMNote Text:1045: Patient ambulated into treatment room for IV infusions. Headacheassessment completed. Patient rated headache 5/10. Patient denied nauseaand stated moderate dizziness. Patient educated on medications to beadministered. Patient verbalized understanding and agreed to proceed withinfusions. IV started in right hand; IVF started.1435: Pts infusions complete. Pt tolerated infusions well. Pt ratedheadache 2/10. Pt denied nausea or dizziness. Post infusion BP 126/79. PtsIV removed intact; dressing applied. Normal [facility] CNOVon 08-02-2017 CNOV Office Visit (DEANNASrinivasa) JASONRITA ([id number]) 1975 FDate Time Provider Department08/02/17 12:30 PM INFUSION MAIN CHAIR [place] DRAKE During your visit today, we recorded the following information about you: Pulse Respiration Blood pressure 71/minute 16/minute 112/57[facility] 08/02/2017 2:18 PM [id number]: Patient ambulated into treatment room for IV infusions. Headacheassessment completed. Patient rated headache 6/10. Patient stated mild nauseaand denied dizziness. Patient educated on medications to be administered. Ptstated she is on home steroid taper and solumedrol ordered for patient; RN toclaricalliey with Dr. Marie is she should receieve both today. Patient verbalizedunderstanding and agreed to proceed with infusions. IV started in right hand;IVF started.1130: Pt receiving first quarter dose of DHE and started to complain ofnumbness/tingling in hands. DHE stopped and IVF started. Pt rated decrease inheadache to 4/10.1146: Pts numbness/tingling resolved completely. Pt does not want to continuewith DHE doses. Pt rating headache 3/10. Denies nausea and states milddizziness. Dr. Marie notified.1200: RN spoke with Dr. Marie and he stated to give solumedrol and have patienthold off on taking home prednisone for today; patient informed of this.1345: Pts infusions complete. Pt rated headache 2/10. Denied nausea and statedmild dizziness. Post infusion BP 112/57. IV removed intact; dressing applied.Referring Provider: SELF [200]Allergies As of Date: 08/02/2017 Noted Allergy ReactionVANTIN (CEFPODOXIME) 09/22/2016 2 - RashDate Reviewed: 08/02/2017Reviewed by: Jemal Huang - Fully AssessedReason for Visit: Infusion [464] Headache [52]Primary Visit Diagnosis:Status migrainosus [G43.901]Order(s):NaCl 0.9% iv infusionDisp: Rfl: diphenhydrAMINE 50 mg injection (BENADRYL)Disp: Rfl: famotidine 20 mg injection (PEPCID)Disp: Rfl: hydrocortisone sodium succinate (PF) 100 mg injection (Solu-CORTEF)Disp: Rfl: SALINE LOCK INSERTION [[id number]] Order #: [id number]: 1 NaCl 0.9% iv infusionDisp: Rfl: NaCl (PF) 0.9% 10-20 mL injectionDisp: Rfl: HEMONC - NURSING COMMUNICATION [[id number]] Order #: [id number]: 1 heparin 100 unit/mL 500 Units injectionDisp: Rfl: NaCl (PF) 0.9% 10-20 mL injectionDisp: Rfl: HCG QUAL UR [SQUHCG] Order #: [id number] FUTURE [] NaCl 0.9% 1,000 mL iv bolusDisp: Rfl: [] ondansetron (PF) 8 mg injection (ZOFRAN)Disp: Rfl: promethazine 25 mg tab(s) (PHENERGAN)Disp: Rfl: propranolol 10 mg tab(s) (INDERAL)Disp: Rfl: cyproheptadine 4 mg tab(s) (PERIACTIN)Disp: Rfl: [] diphenhydrAMINE 25 mg injection (BENADRYL)Disp: Rfl: [] ketorolac 30 mg injection (TORADOL)Disp: Rfl: dihydroergotamine 0.25 mg in NaCl 0.9% 62.5 mLDisp: Rfl: [] methylPREDNISolone sodium succinate 500 mg in NaCl 0.9% 100 mL (Solu-MEDROL)Disp: Rfl: magnesium sulfate 2 g in NaCl 0.9% 250 mLDisp: Rfl: [] methocarbamol iv infusion 1,000 mg in NaCl 0.9% 100 mL (ROBAXIN)Disp: Rfl: cyproheptadine 4 mg tab(s) (PERIACTIN)Disp: Rfl: propranolol 10 mg tab(s) (INDERAL)Disp: Rfl: QUEtiapine 25 mg tab(s) (SEROquel)Disp: Rfl: cyproheptadine 4 mg tab(s) (PERIACTIN)Disp: Rfl: cloNIDine HCl 0.1 mg tab(s) (CATAPRES)Disp: Rfl:Prescriptions as of 08/02/2017 Sig: VENLAFAXINE ER 75 MG CAPSULE,* Take 1 capsule by mouth once * PREDNISONE 10 MG TABLET Take 1 tablet by mouth once d* ELETRIPTAN HBR 40 MG TABLET Take 40 mg by mouth as needed*Problem List As Of Date 08/02/2017 Noted Resolved Multiple thyroid nodules [E04.2] INVALID FOR* Vocal cord paralysis, unilateral complete [J38.*INVALID FOR*Prescriptions ordered this encounter Disp Refills Start End SODIUM CHLORIDE 0.9 % INTRAVENOUS SO* 08/02/2017 Route: INTRAVENOUS DIPHENHYDRAMINE 50 MG/ML INJECTION S* 08/02/2017 Route: INTRAVENOUS FAMOTIDINE (PF) 20 MG/2 ML INTRAVENO* 08/02/2017 Route: INTRAVENOUS HYDROCORTISONE SOD SUCCINATE (PF) 10* 08/02/2017 Route: INTRAVENOUS SODIUM CHLORIDE 0.9 % INTRAVENOUS SO* 08/02/2017 Route: INTRAVENOUS SODIUM CHLORIDE 0.9 % INJECTION SOLU* 08/02/2017 Route: INTRAVENOUS HEPARIN LOCK FLUSH (PORCINE) 100 UNI* 08/02/2017 Route: INTRAVENOUS SODIUM CHLORIDE 0.9 % INJECTION SOLU* 08/02/2017 Route: INTRAVENOUS SODIUM CHLORIDE 0.9 % IV BOLUS 1000 * 08/02/2017 08/02/2017 Route: INTRAVENOUS ONDANSETRON HCL (PF) 4 MG/2 ML INJEC* 08/02/2017 08/02/2017 Route: INTRAVENOUS PROMETHAZINE 25 MG TABLET 08/02/2017 Route: ORAL PROPRANOLOL 10 MG TABLET 08/02/2017 Route: ORAL CYPROHEPTADINE 4 MG TABLET 08/02/2017 Route: ORAL DIPHENHYDRAMINE 50 MG/ML INJECTION S* 08/02/2017 08/02/2017 Route: INTRAVENOUS KETOROLAC 30 MG/ML (1 ML) INJECTION * 08/02/2017 08/02/2017 Route: INTRAVENOUS DIHYDROERGOTAMINE IVPB IN NS 250 ML 08/02/2017 08/02/2017 Route: INTRAVENOUS METHYLPREDNISOLONE IV PGBK 08/02/2017 08/02/2017 Route: INTRAVENOUS MAGNESIUM SULFATE IV PIGGYBACK 2 GRA* 08/02/2017 08/03/2017 Route: INTRAVENOUS METHOCARBAMOL IV INFUSION 1,000 MG I* 08/02/2017 08/02/2017 Route: INTRAVENOUS CYPROHEPTADINE 4 MG TABLET 08/02/2017 Route: ORAL PROPRANOLOL 10 MG TABLET 08/02/2017 Route: ORAL QUETIAPINE 25 MG TABLET 08/02/2017 Route: ORAL CYPROHEPTADINE 4 MG TABLET 08/02/2017 Route: ORAL CLONIDINE HCL 0.1 MG TABLET 08/02/2017 Route: ORALEncounter Number: [id number] Status:Closed by JEMAL HUANG on 08/02/17 Normal [facility] PROGRESSon 08-02-2017 PROGRESS HNO ID: [id number] thor: Jemal Foxervice: (none)Author Type: (none)Type: Progress NotesFiled: 08/02/2017 2:18 PMNote Text:1030: Patient ambulated into treatment room for IV infusions. Headacheassessment completed. Patient rated headache 6/10. Patient stated mildnausea and denied dizziness. Patient educated on medications to beadministered. Pt stated she is on home steroid taper and solumedrolordered for patient; RN to clarify with Dr. Marie is she should receieveboth today. Patient verbalized understanding and agreed to proceed withinfusions. IV started in right hand; IVF started.1130: Pt receiving first quarter dose of DHE and started to complain ofnumbness/tingling in hands. DHE stopped and IVF started. Pt rated decreasein headache to 4/10.1146: Pts numbness/tingling resolved completely. Pt does not want tocontinue with DHE doses. Pt rating headache 3/10. Denies nausea and statesmild dizziness. Dr. Marie notified.1200: RN spoke with Dr. Marie and he stated to give solumedrol and havepatient hold off on taking home prednisone for today; patient informed ofthis.1345: Pts infusions complete. Pt rated headache 2/10. Denied nausea andstated mild dizziness. Post infusion BP 112/57. IV removed intact;dressing applied. Normal [facility] CNOVon 07-29-2017 CNOV Office Visit (VIDAL) RITA JASON ([id number]) 1975 [facility] Time Provider Department07/29/17 9:40 AM MONIQUE MARIE During your visit today, we recorded the following information about you: Pulse Blood pressure Weight Height 74/minute 114/80 80.2 kg 1.676 Paola Marie MD 07/29/2017 4:29 PM [facility] Tiarra Coffey, [address] [address]Fuwwg R Kuns, DOThedaCare [facility] [address] [id number]: Trever LimonBrendan is a 42 year old year old year old, Right handed woman who is here forthe evaluation and management of the patient's Headache.CC: HeadacheHPI:Family history of Headache? Yes, mother, maternal GM, sonHow old were you when you had the first headache of your entire life? 13,menstrual triggerAre these headaches similar to your headaches now? noNOW:Where are you headaches located? Bilateral temples, behind both eyes, occipitalWhat is the quality of the pain? throbbingHow severe are the headaches on a scale of 1-10?10/10, can last all dayAre your headaches worse with activity? Yes,How may headaches have you had in the last month? 11 headache days, onecontinuous headache since 07/18/17Do you have light sensitivity with headaches? YesDo you have sound sensitivity with headaches? YesDo you have nausea with headaches? Yes,only during severe onesHow long do the worst headaches last? All dayAre headaches side locked? NoWith severe migraine has blurred vision both eyes stronger in right eye, haslazy eye, has seen eye doctor (left eye is weaker)Has aura- spotsHas confusion with the severe onesUsually VANEGAS are predictable they are usually one day before or day of start ofcycle, can have occasional migraines once in a whileThis one started 5 days after menstrual cycle and has not stoppedPartial Thyroidectomy 06/25 Had a benign nodule removed from thyroid but testpositive for a cluster of cells that would've been precancerousDo you have any other types of headaches? only when sick with a cold, sinuspressureSleep:good and bad, lately tossing and turning because of painDiet: terrible, processed, caffeine(pepsi 20 oz/day),social drinker, banana,triggered by peanut butter and red dyeExercise:was until this headache started, goes walkingMedical/Psychosoci al Historyshe reports history of depression(recently having crying boughts while onTopamx), anxiety. she denies history of abuse.Previous testing: CT brain - 07/21/17Nodule or swollen lymph node in occipital areaPrior Treatments:Triptans: Imitrex-felt weird but took migraine away, Amerge- no relief,Zomig-no relief and Relpax-helps after second doseNSAIDS/Combination Analgesics: Excedrin -3 tabs BID for the last week, iftaking relpax no excedrin, gets Toradol injections (4)- gets reliefOpiates/Barbiturate s: Vicodin 5mg-once no reliefAED's: Topamax-had side effects, no longer taking and Phenobarbital-sureAntidep ressants: Zoloft-2003 for depressionOther: noneCurrent Medications:Current Outpatient Prescriptions:eletriptan (RELPAX) 40 mg tablet Take 40 mg by mouth as needed. may repeat in 2hours if necessary Disp: Rfl:No current facility-administered medications for this visit..Allergies:ALLERGIE SAllergen Reactions- Vantin [Cefpodoxime] RashFamily History:Migraine or other headaches in the family: Yes Son , Mother , Sister ,Brother, maternal GMPast Medical History:PAST MEDICAL HISTORYDiagnosis Date- Migraine headache with auraPast Surgical HistoryPAST SURGICAL HISTORYProcedure Laterality Date- APPENDECTOMY 1986- SECTION HX- THYROIDECTOMY SUBTOTAL/PARTIAL Right 06/2016- TONSILLECTOMY HXSocial History:Social HistorySubstance Use Topics- Smoking status: Former Smoker- Smokeless tobacco: Not on file Comment: 13 months smoke free; used to smoke 1 pack per week- Alcohol use Yes Comment: socialROS:REVIEW OF SYSTEMSGENERAL: Fever, sweats, chills, sore throat last ThursadayHEENT: No changes in hearing or vision, no nose bleeds or other nasal problemsNECK: Positive for neck painRESPIRATORY: Negative for cough, hemoptysis, wheezing, COPD, dyspnea orshortness of breath, Negative for cough, hemoptysis, wheezing or shortness ofbreathCARDIOVASCULAR: Negative for chest pain, leg swelling, hypertension, CHF orpalpitations, Negative for chest pain, leg swelling or palpitationsGI: No nausea, vomiting, or diarrheaGU: No history of dysuria, frequency or incontinenceMUSCULOSKELET AL: Negative for joint pain or swelling, back pain or muscle painPSYCH: sleep fragmented, Positive for sleep disturbance: problems stayingasleep, falls asleep during daytime and anxiety:ENDOCRINE: Negative for cold or heat intolerance, polyuria, polydipsia andgoiterNEURO: Migraine headachesPhysical Exam:PHYSICAL EXAM:Vital Signs: BP 114/80 Pulse 74 Ht 167.6 cm (5' 6ANDquot;) Wt 80.2 kg (176lb 14.4 oz) BMI 28.55 kg/b8Kqsprzj appearance: Obese, well appearing, alert, in no acute distressLungs: CTABHeart: RRRExtremities: Warm and Well PerfusedNeurological:Ment al Status: Alert. Affect is normal.Cranial Nerves: II-Visual randhawa are full. Funduscopic examination reveals nopapilledema. Venous pulsations present. III, IV, -EOMI, PERRL, nystagmusabsent, V-normal facial sensation to light touch. VII-face is symmetricwithout evidence of weakness. VIII-hearing intact. IX, X-palate elevatessymmetrically. XI-SCM 5/5. XII-tongue protrudes midline with normalmovements.Motor: Normal tone, 5/5 strength throughoutReflexes: 2+ and symmetricSensation: Intact light touch, intact vibration in fingersCoordination: Normal [id number]: Absent Romberg, normal tandem gaitImpression: This is Rita Jason, a 42 year old female with a history ofchronic migraine in the setting of medication overuse headache. Herneurological examination is essentially normal at this visit.IHS diagnosis based on current history and exam:Migraine: 1.1 Migraine without auraPLAN:HEADACHE EVALUATIONLABS: Many labs have been done looking for underlying reasons of headache andare not necessary at this time.IMAGING/MRI: Another part of evaluating chronic headache may include imaging. Currently, no need. However, in the future if indicated, this may beordered.HEADACHE MANAGEMENT: You are the primary guardian of your health and headache.Keep track of all medications: This includes the reason for use, side effectsand benefits.MEDICATION TREATMENT: Headache management is broken down into 2 parts:Prevention ~ medication used to reduce frequency and intensity of headache.These are taken on a daily basis whether you have a headache or not.Amg 301 clinical trials vs preventaive. Good preventative options includetizanidine vs amitriptyline vs antihypertensives, BotoxRescue ~ medication to take when you get a headache or other symptoms such asnausea, etc.IV infusions - starting day course of steroids - starting todayNON-MEDICATION TREATMENT:Migraine Lifestyle: We discussed preventative lifestyle changes for preventionof migraine such as a healthy diet, not skipping meals, moderate aerobicexercise (intensity level high enough to raise heart rate and break a sweat,able to talk but not sing the words to a song) 30 minutes per day 3-5 days perweek times per week as tolerated, good sleep hygiene, staying well-hydratedwith 3-4 Liters (96-128 ounces) of water per day, and identification ofmigraine triggers. Yoga, massage, and acupuncture are also beneficial formigraine.Total time in minutes spent with patient including headacheeducation/delinquency counselor ling/coordinating care with the patient and /or family 60minutes. More than 50 % of time spent in counseling and answering specificpatient questions.MUNIRA CACERES have supervised and personally performed the tripp components of theabove-noted interview and physical examination. I agree with the note and waspersonally involved in development of this patient's assessment, plan ofmanagement, and follow-up.Monique Marie, MDDivision of HeadacheCenter for Neurological RestorationMercy Health – The Jewish HospitalMonique Marie MD 07/29/2017 11:25 AM AddendumPrednisone 60 mg daily for 3 days, then decrease by 10 mg every day until off.Be sure to take a stomach protector like Prilosec over the counter if stomachupset occurs.Day 1: 6 tablets (60 mg)Day 2: 6 tablets (60 mg)Day 3: 6 tablets (60 mg)Day 4: 5 tablets (50 mg)Day 5: 4 tablets (40 mg)Day 6: 3 tablets (30 mg)Day 7: 2 tablets (20 mg)Day 8: 1 tablets (10 mg)Day 9: OFFIV INFUSIONS for M/T/WHEADACHE EVALUATIONLABS: Many labs have been done looking for underlying reasons of headache andare not necessary at this time.IMAGING/MRI: Another part of evaluating chronic headache may include imaging. Currently, no need. However, in the future if indicated, this may beordered.HEADACHE MANAGEMENT: You are the primary guardian of your health and headache.Keep track of all medications: This includes the reason for use, side effectsand benefits.MEDICATION TREATMENT: Headache management is broken down into 2 parts:Prevention ~ medication used to reduce frequency and intensity of headache.These are taken on a daily basis whether you have a headache or not.Am 301 clinical trials vs preventaive. Good preventative options includetizanidine vs amitriptyline vs antihypertensives, BotoxRescue ~ medication to take when you get a headache or other symptoms such asnausea, etc.IV infusions8 day course of steroidsNON-MEDICATION TREATMENT:Exercise is a critical part of headache prevention. Goal is to get 20-30minutes of mild aerobic exercise such as walking, swimming, or yoga, every day.Exercise should be treated like a medication, and thus implemented daily. Forthe first few weeks exercise may make headaches worse, but it is important tocontinue in order to get the mcfp preventive benefits. If needed, startwith 5 minute intervals every hour while awake. Simple and sustainablebehavior changes are longer lasting. Make a plan and commit.Flexibility and core are essential as well: Yoga DVD's are inexpensive and youcan do this at home. AM Yoga with Dustin Flores. ANDamp; Restorative YogaPractice: Gentle Beginners by Mimi Flores are a few to consider.Mindful Relaxation: Hourly chime on your smart phone or desktop/computer tohelp reset posture and breathing. Remember to pull your shoulder bladestogether and hold for 5 seconds. Repeat 5 times.Http://[employer] is a free website that provides teaching videos onrelaxation. Also, there are many apps that can be downloaded for ?mindful?relaxation. An pretty called YOGA NIDRA will help walk you through mindfulness.DIET: Frequent meals with protein 5-10 gm every 3 hours and carbohydrate willhelp with keeping blood sugar and energy/ fuel supply at appropriate levels.(Example: 5 grams of protein: 1 cheese stick, 20 almonds, 1 hard boiled egg.1 ounce beef jerky is 10 grams. There are 14 grams of protein in 1/2 cupcottage cheese and so on.)HYDRATION: A minimum of 72-96 ounces of water and ornon-carbonated/caffeina mariam beverage daily.IV INFUSIONS: Several Intravenous (IV) treatment options exist for migrainesufferers. These can be given in the emergency room or in an outpatientsetting, such as a family clinic. Typically, IV treatment is used only onmigraines that aren't responding to treatment. Various types of medications canbe used in an IV for migraine. Some focus on reducing pain; others offersolutions for loosening the constriction of blood vessels in the brain, whichis what causes the pain. The results of use, according to a study reviewed by[employer].com, suggest the efficacy of the IV treatment to be 98 percent inpatients studied.SLEEP HYGIENE: 8 hours in bed overnight. No other activity in bed except sleepand sex.No daytime napping. Avoid large meals late in evening.Sleep is integral to our health and well-being. With that in mind here are afew pointers on getting a good night's sleep.1. Keep a regular sleep schedule including a regular wake-up time. Our bodieslike routine.2. Make sure the bedroom is dark and quiet.3. Avoid forcing sleep and sleep only as much as you need to feel rested.Trying too hard to sleep and sleeping too much can be counterproductive.4. Try to deal with your worries before bedtime as much as possible. Stressdoes not magically disappear once you fall asleep. Excessive stress and worryat bedtime can impact your sleep quality and quantity.5. Do not start tasks that may be anxiety provoking or energy increasingwithin 2-3 hours of sleep.6. Exercise regularly, preferably in the morning and at least 4-5 hours beforebedtime. Exercise is great to promote sleep, but it can make it harder to fallasleep if it is done too close to bedtime.7. Many substances contribute to poor sleep including caffeine, nicotine, andalcohol. The sleep disruptive effects of caffeine can last for several hours,so caffeine should be avoided after lunch. Alcohol is initially sedating sopeople think it helps them sleep better, but it is rapidly metabolized leadingto poor sleep quality as the night progresses. Nicotine should be avoidedespecially in the evening.8. Do not go to bed hungry. If needed, eat a light healthy snack beforebedtime, with emphasis on ANDquot;lightANDquot; and ANDquot;healthy.ANDquot;9 . Read a non-exciting book at bedtime. If it is an e-book, use a readingdevice that does not have a backlit screen. The light can be activating andkeep people up longer.10. Avoid watching TV within 1-2 hours of going to bed. TV is quiteactivating. If you see something exciting on TV, it can lead to difficultyrelaxing your mind when it is time to go to bed.CAFFEINE is a headache trigger (as well as a short term treatment) - try toeven out the quantity in the day and then slowly but progressively reduce - usedecaffeinated coffee/tea or soda as substitute. Max 12 oz daily. If on largerquantity; recommended taper is 4 ounces every 4 days to reduce risk ofwithdrawal headache.DIARY/TRIGGERS: In order to track effectiveness of treatment, a diary is anessential part of your plan of care. Identification of triggers is also tripp inreduction of frequency and intensity of headache pain. Many electronic appsare available for smart phones and tablets. Example of diary below.THERACANE: is a helpful tool for pain and muscle tenderness. It can bepurchased online ([employer], etc). It may help to use an Ice Gel pack to localspot for 5 minutes, followed by gentle pressure with theracane. Follow-up withWarm/Hot Moist towel. Cover with dry towel and stretch.PHOTOPHOBIA/Light Sensitivity: Photophobia treatment involves a balance betweendesensitization and reduction in overly strong input. Use dark polarizedglasses outside, but not inside. Avoid bright or fluorescent light, but do notdim environment to the point that going into a normally lit room hurts.Consider FL-41 tint lenses, which reduce the most irritating wavelengthswithout blocking too much light. These can be obtained at [employer] ortheraspecs.comExamples of...Psychologic Factor:? Emotional/Upset family or friends? Emotional/Upset occupation? Business reversal/success? Anticipation anxiety? Crisis-serious? Post-crisis period? New job/positionPhysical Factor:? Vacation Day? Weekend? Strenuous Exercise? High Altitude Location? New Move? Menstrual Day? Physical Illness? Oversleep/Not enough sleep? WeatherFood:? Ripened Cheese? Chocolate? Fermented foods? Nuts/Peanut Butter? Onions? [place] Fruits? Pork? Nutrasweet? Vinegar? Baked Yeast/Bread? MSG? Bananas? SausageReferring Provider: TREVER LIMON [[id number]]Allergies As of Date: 07/29/2017 Noted Allergy ReactionVANTIN (CEFPODOXIME) 09/22/2016 2 - RashDate Reviewed: 07/29/2017Reviewed by: Betty Garcia) JUANA Allison - Fully AssessedReason for Visit: Headache [52]Primary Visit Diagnosis:Medication overuse headache [G44.40] Other Visit Diagnoses:Chronic migraine without aura, with intractable migraine, so stated, with status migrainosus [G43.711] Migraine without aura, intractable, with status migrainosus [G43.011]Order(s):predniS ONE (DELTASONE) 10 mg tabletTake 1 tablet by mouth once daily. Prednisone 60 mg daily for 3 days, then decrease by 10 mg every day until off.Disp: 33 tabletRfl: 0Prescriptions as of 07/29/2017 Sig: ELETRIPTAN HBR 40 MG TABLET Take 40 mg by mouth as needed* PREDNISONE 10 MG TABLET Take 1 tablet by mouth once d*Problem List As Of Date 07/29/2017 Noted Resolved Multiple thyroid nodules [E04.2] INVALID FOR* Vocal cord paralysis, unilateral complete [J38.*INVALID FOR* Other instructions from your clinician: Prednisone 60 mg daily for 3 days, then decrease by 10 mg every day until off. Be sure to take a stomach protector like Prilosec over the counter if stomach upset occurs. Day 1: 6 tablets (60 mg) Day 2: 6 tablets (60 mg) Day 3: 6 tablets (60 mg) Day 4: 5 tablets (50 mg) Day 5: 4 tablets (40 mg) Day 6: 3 tablets (30 mg) Day 7: 2 tablets (20 mg) Day 8: 1 tablets (10 mg) Day 9: OFF IV INFUSIONS for M/T/W HEADACHE EVALUATION LABS: Many labs have been done looking for underlying reasons of headache and are not necessary at this time. IMAGING/MRI: Another part of evaluating chronic headache may include imaging. Currently, no need. However, in the future if indicated, this may be ordered. HEADACHE MANAGEMENT: You are the primary guardian of your health and headache. Keep track of all medications: This includes the reason for use, side effects and benefits. MEDICATION TREATMENT: Headache management is broken down into 2 parts: Prevention ~ medication used to reduce frequency and intensity of headache. These are taken on a daily basis whether you have a headache or not. Amg 301 clinical trials vs preventaive. Good preventative options include tizanidine vs amitriptyline vs antihypertensives, Botox Rescue ~ medication to take when you get a headache or other symptoms such as nausea, etc. IV infusions 8 day course of steroids NON-MEDICATION TREATMENT: Exercise is a critical part of headache prevention. Goal is to get 20-30 minutes of mild aerobic exercise such as walking, swimming, or yoga, every day. Exercise should be treated like a medication, and thus implemented daily. For the first few weeks exercise may make headaches worse, but it is important to continue in order to get the mcfp preventive benefits. If needed, start with 5 minute intervals every hour while awake. Simple and sustainable behavior changes are longer lasting. Make a plan and commit. Flexibility and core are essential as well: Yoga DVD's are inexpensive and you can do this at home. AM Yoga with Dustin Flores. AND Restorative Yoga Practice: Gentle Beginners by Mimi Flores are a few to consider. Mindful Relaxation: Hourly chime on your smart phone or desktop/computer to help reset posture and breathing. Remember to pull your shoulder blades together and hold for 5 seconds. Repeat 5 times. Http://[employer] is a free website that provides teaching videos on relaxation. Also, there are many apps that can be downloaded for ?mindful? relaxation. An pretty called YOGA NIDRA will help walk you through mindfulness. DIET: Frequent meals with protein 5-10 gm every 3 hours and carbohydrate will help with keeping blood sugar and energy/ fuel supply at appropriate levels. (Example: 5 grams of protein: 1 cheese stick, 20 almonds, 1 hard boiled egg. 1 ounce beef jerky is 10 grams. There are 14 grams of protein in 1/2 cup cottage cheese and so on.) HYDRATION: A minimum of 72-96 ounces of water and or non-carbonated/caffeinate d beverage daily. IV INFUSIONS: Several Intravenous (IV) treatment options exist for migraine sufferers. These can be given in the emergency room or in an outpatient setting, such as a family clinic. Typically, IV treatment is used only on migraines that aren't responding to treatment. Various types of medications can be used in an IV for migraine. Some focus on reducing pain; others offer solutions for loosening the constriction of blood vessels in the brain, which is what causes the pain. The results of use, according to a study reviewed by [employer], suggest the efficacy of the IV treatment to be 98 percent in patients studied. SLEEP HYGIENE: 8 hours in bed overnight. No other activity in bed except sleep and sex. No daytime napping. Avoid large meals late in evening. Sleep is integral to our health and well-being. With that in mind here are a few pointers on getting a good night's sleep. 1. Keep a regular sleep schedule including a regular wake-up time. Our bodies like routine. 2. Make sure the bedroom is dark and quiet. 3. Avoid forcing sleep and sleep only as much as you need to feel rested. Trying too hard to sleep and sleeping too much can be counterproductive. 4. Try to deal with your worries before bedtime as much as possible. Stress does not magically disappear once you fall asleep. Excessive stress and worry at bedtime can impact your sleep quality and quantity. 5. Do not start tasks that may be anxiety provoking or energy increasing within 2-3 hours of sleep. 6. Exercise regularly, preferably in the morning and at least 4-5 hours before bedtime. Exercise is great to promote sleep, but it can make it harder to fall asleep if it is done too close to bedtime. 7. Many substances contribute to poor sleep including caffeine, nicotine, and alcohol. The sleep disruptive effects of caffeine can last for several hours, so caffeine should be avoided after lunch. Alcohol is initially sedating so people think it helps them sleep better, but it is rapidly metabolized leading to poor sleep quality as the night progresses. Nicotine should be avoided especially in the evening. 8. Do not go to bed hungry. If needed, eat a light healthy snack before bedtime, with emphasis on light and healthy. 9. Read a non-exciting book at bedtime. If it is an e-book, use a reading device that does not have a backlit screen. The light can be activating and keep people up longer. 10. Avoid watching TV within 1-2 hours of going to bed. TV is quite activating. If you see something exciting on TV, it can lead to difficulty relaxing your mind when it is time to go to bed. CAFFEINE is a headache trigger (as well as a short term treatment) - try to even out the quantity in the day and then slowly but progressively reduce - use decaffeinated coffee/tea or soda as substitute. Max 12 oz daily. If on larger quantity; recommended taper is 4 ounces every 4 days to reduce risk of withdrawal headache. DIARY/TRIGGERS: In order to track effectiveness of treatment, a diary is an essential part of your plan of care. Identification of triggers is also tripp in reduction of frequency and intensity of headache pain. Many electronic apps are available for smart phones and tablets. Example of diary below. THERACANE: is a helpful tool for pain and muscle tenderness. It can be purchased online ([employer], etc). It may help to use an Ice Gel pack to local spot for 5 minutes, followed by gentle pressure with theracane. Follow-up with Warm/Hot Moist towel. Cover with dry towel and stretch. PHOTOPHOBIA/Light Sensitivity: Photophobia treatment involves a balance between desensitization and reduction in overly strong input. Use dark polarized glasses outside, but not inside. Avoid bright or fluorescent light, but do not dim environment to the point that going into a normally lit room hurts. Consider FL-41 tint lenses, which reduce the most irritating wavelengths without blocking too much light. These can be obtained at [employer] or [employer] Examples of... Psychologic Factor: ? Emotional/Upset family or friends ? Emotional/Upset occupation ? Business reversal/success ? Anticipation anxiety ? Crisis-serious ? Post-crisis period ? New job/position Physical Factor: ? Vacation Day ? Weekend ? Strenuous Exercise ? High Altitude Location ? New Move ? Menstrual Day ? Physical Illness ? Oversleep/Not enough sleep ? Weather Food: ? Ripened Cheese ? Chocolate ? Fermented foods ? Nuts/Peanut Butter ? Onions ? [place]ruits ? Pork ? Nutrasweet ? Vinegar ? Baked Yeast/Bread ? MSG ? Bananas ? SausagePrescriptions ordered this encounter Disp Refills Start End PREDNISONE 10 MG TABLET 33 t* 0 07/29/2017 Route: ORAL Sig: Take 1 tablet by mouth once daily. Prednisone 60 mg daily for 3 days, then decrease by 10 mg every day until off. Status:Closed by MONIQUE MARIE MD on 07/29/17 Normal [facility] PROGRESSon 07-29-2017 PROGRESS HNO ID: [id number] thor: Monique Davis: (none)Author Type: PhysicianType: Progress NotesFiled: 07/29/2017 4:29 PMNote Text:Headache CenterNeurological [facility] Vdtw[address] [address]HmabjTrever Limon DOThedaCare Medical Center - [facility] S [address] [id number]: Trever LimonBrendan is a 42 year old year old year old, Right handed woman who is herefor the evaluation and management of the patient's Headache.CC: HeadacheHPI:Family history of Headache? Yes, mother, maternal GM, sonHow old were you when you had the first headache of your entire life? 13,menstrual triggerAre these headaches similar to your headaches now? noNOW:Where are you headaches located? Bilateral temples, behind both eyes,occipitalWhat is the quality of the pain? throbbingHow severe are the headaches on a scale of 1-10?10/10, can last all dayAre your headaches worse with activity? Yes,How may headaches have you had in the last month? 11 headache days, onecontinuous headache since 07/18/17Do you have light sensitivity with headaches? YesDo you have sound sensitivity with headaches? YesDo you have nausea with headaches? Yes,only during severe onesHow long do the worst headaches last? All dayAre headaches side locked? NoWith severe migraine has blurred vision both eyes stronger in right eye,has lazy eye, has seen eye doctor (left eye is weaker)Has aura- spotsHas confusion with the severe onesUsually VANEGAS are predictable they are usually one day before or day of startof cycle, can have occasional migraines once in a whileThis one started 5 days after menstrual cycle and has not stoppedPartial Thyroidectomy 06/25 Had a benign nodule removed from thyroid buttest positive for a cluster of cells that would've been precancerousDo you have any other types of headaches? only when sick with a cold,sinus pressureSleep:good and bad, lately tossing and turning because of painDiet: terrible, processed, caffeine(pepsi 20 oz/day),social drinker,banana, triggered by peanut butter and red dyeExercise:was until this headache started, goes walkingMedical/Psychosoci al Historyshe reports history of depression(recently having crying boughts while onTopamx), anxiety. she denies history of abuse.Previous testing: CT brain - 07/21/17Nodule or swollen lymph node in occipital areaPrior Treatments:Triptans: Imitrex-felt weird but took migraine away, Amerge- no relief,Zomig-no relief and Relpax-helps after second doseNSAIDS/Combination Analgesics: Excedrin -3 tabs BID for the last week, iftaking relpax no excedrin, gets Toradol injections (4)- gets reliefOpiates/Barbiturate s: Vicodin 5mg-once no reliefAED's: Topamax-had side effects, no longer taking and Phenobarbital-sureAntidep ressants: Zoloft-2003 for depressionOther: noneCurrent Medications:Current Outpatient Prescriptions:eletriptan (RELPAX) 40 mg tablet Take 40 mg by mouth as needed. may repeatin 2 hours if necessary Disp: Rfl:No current facility-administered medications for this visit..Allergies:ALLERGIE SAllergen Reactions- Vantin [Cefpodoxime] RashFamily History:Migraine or other headaches in the family: Yes Son , Mother , Sister ,Brother, maternal GMPast Medical History:PAST MEDICAL HISTORYDiagnosis Date- Migraine headache with auraPast Surgical HistoryPAST SURGICAL HISTORYProcedure Laterality Date- APPENDECTOMY 1986- SECTION HX- THYROIDECTOMY SUBTOTAL/PARTIAL Right 06/2016- TONSILLECTOMY HXSocial History:Social HistorySubstance Use Topics- Smoking status: Former Smoker- Smokeless tobacco: Not on file Comment: 13 months smoke free; used to smoke 1 pack per week- Alcohol use Yes Comment: socialROS:REVIEW OF SYSTEMSGENERAL: Fever, sweats, chills, sore throat last adayHEENT: No changes in hearing or vision, no nose bleeds or other nasalproblemsNECK: Positive for neck painRESPIRATORY: Negative for cough, hemoptysis, wheezing, COPD, dyspnea orshortness of breath, Negative for cough, hemoptysis, wheezing or shortnessof breathCARDIOVASCULAR: Negative for chest pain, leg swelling, hypertension, CHFor palpitations, Negative for chest pain, leg swelling or palpitationsGI: No nausea, vomiting, or diarrheaGU: No history of dysuria, frequency or incontinenceMUSCULOSKELET AL: Negative for joint pain or swelling, back pain or musclepainPSYCH: sleep fragmented, Positive for sleep disturbance: problems stayingasleep, falls asleep during daytime and anxiety:ENDOCRINE: Negative for cold or heat intolerance, polyuria, polydipsia andgoiterNEURO: Migraine headachesPhysical Exam:PHYSICAL EXAM:Vital Signs: BP 114/80 Pulse 74 Ht 167.6 cm (5' 6 ) Wt 80.2 kg (176lb 14.4 oz) BMI 28.55 kg/c5Kmvtxuf appearance: Obese, well appearing, alert, in no acute distressLungs: CTABHeart: RRRExtremities: Warm and Well PerfusedNeurological:Ment al Status: Alert. Affect is normal.Cranial Nerves: II-Visual randhawa are full. Funduscopic examinationreveals no papilledema. Venous pulsations present. III, IV, -EOMI,PERRL, nystagmus absent, V-normal facial sensation to light touch.VII-face is symmetric without evidence of weakness. VIII-hearing intact.IX, X-palate elevates symmetrically. XI-SCM 5/5. XII-tongue protrudesmidline with normal movements.Motor: Normal tone, 5/5 strength throughoutReflexes: 2+ and symmetricSensation: Intact light touch, intact vibration in fingersCoordination: Normal pstfbt-[id number]: Absent Romberg, normal tandem gaitImpression: This is Rita Jason, a 42 year old female with a history ofchronic migraine in the setting of medication overuse headache. Herneurological examination is essentially normal at this visit.IHS diagnosis based on current history and exam:Migraine: 1.1 Migraine without auraPLAN:HEADACHE EVALUATIONLABS: Many labs have been done looking for underlying reasons of headacheand are not necessary at this time.IMAGING/MRI: Another part of evaluating chronic headache may includeimaging. Currently, no need. However, in the future if indicated, thismay be ordered.HEADACHE MANAGEMENT: You are the primary guardian of your health andheadache.Keep track of all medications: This includes the reason for use, sideeffects and benefits.MEDICATION TREATMENT: Headache management is broken down into 2 parts:Prevention ~ medication used to reduce frequency and intensity ofheadache. These are taken on a daily basis whether you have a headache ornot.Amg 301 clinical trials vs preventaive. Good preventative options includetizanidine vs amitriptyline vs antihypertensives, BotoxRescue ~ medication to take when you get a headache or other symptoms suchas nausea, etc.IV infusions - starting day course of steroids - starting todayNON-MEDICATION TREATMENT:Migraine Lifestyle: We discussed preventative lifestyle changes forprevention of migraine such as a healthy diet, not skipping meals,moderate aerobic exercise (intensity level high enough to raise heart rateand break a sweat, able to talk but not sing the words to a song) 30minutes per day 3-5 days per week times per week as tolerated, good sleephygiene, staying well-hydrated with 3-4 Liters (96-128 ounces) of waterper day, and identification of migraine triggers. Yoga, massage, andacupuncture are also beneficial for migraine.Total time in minutes spent with patient including headacheeducation/delinquency counselor ling/coordinating care with the patient and /or family 60minutes. More than 50 % of time spent in counseling and answering specificpatient questions.MUNIRA CACERES have supervised and personally performed the tripp components of theabove-noted interview and physical examination. I agree with the note andwas personally involved in development of this patient's assessment, planof management, and follow-up.Monique Marie, MDDivision of HeadacheCenter for Neurological RestorationMercy Health [facility] Normal [facility] CT-CT head/brain wo/w con IM Luna 07-21-2017 CT-CT head/brain wo/w con IMPORT Images were obtained outside of [facility] [id number] Normal [facility] CNPNon 04-13-2017 CNPN Telephone (ENDOMN) RITA RIZVI ([id number]) 1975 FDate Time Provider Department04/13/17 GIOVANNI BEARD During your visit today, we recorded the following information about you:Giovanni Beard MD 04/13/2017 7:07 AM SignedPlease tell Rita I received the disc and reviewed the thyroid ultrasound images. The cysts look totally benign. There is no indication to do any biopsy anddefinitely no indication to do further thyroid surgery. She will need anotherultrasound in 1-2 years.Divina Cerda Ma 04/13/2017 10:03 AM SignedLeft voicemail to return call to the office for message.Allergies As of Date: 04/13/2017 Noted Allergy ReactionVANTIN (CEFPODOXIME) 09/22/2016 2 - RashDate Reviewed: 03/26/2017Reviewed by: Giovanni Beard - Fully AssessedReason for Visit: Thyroid ultrasound [Other] [facility]2017 Sig: ELETRIPTAN HBR 40 MG TABLET Take 40 mg by mouth as needed*Problem List As Of Date 04/13/2017 Noted Resolved Multiple thyroid nodules [E04.2] INVALID FOR* Vocal cord paralysis, unilateral complete [J38.*INVALID FOR*Letter TextChriscourtney Beard MD, FACE, FACPDirector - Thyroid CenterDirector ? Endocrinology Fellowship ProgramEndocrinology AND Metabolism [address]/ [address] [address]Mvhthr: appointments: Fax: april 2017Rita Rizvi[address] [facility] [address] [id number]: Rita RizviMRN: [id number] Amy,I hope all is well.We called you in April and left you a message to call us back. I wanted totell you that Rita I received the disc and reviewed the thyroid ultrasoundimages. The cysts look totally benign. There is no indication to do anybiopsy and definitely no indication to do further thyroid surgery. You willneed another ultrasound in 1-2 years.Should you have any questions, please do not hesitate to contact me.Sincerely,Giovanni Beard MDEncounter Number: [id number] Status:Closed by GIOVANNI BEARD MD on 07/20/17 Normal [facility] US-US thyroid IMPORTon 03-29 US-US thyroid IMPORT Images were obtaine d outside of [facility] [id number] Normal [facility] CNOVon 03-18-2017 CNOV Office Visit (ENDOMN) RITA RIZVI ([id number]) 1975 FDate Time Provider Vjqcknrvjp76/8/17 3:25 PM GIOVANNI BEARD ENDOMN During your visit today, we recorded the following information about you: Pulse Blood pressure Weight Last Period 83/minute 122/62 78.5 kg 02/23/17[place] Ma 03/18/2017 3:57 PM SignedThank you for choosing the [facility] Department of Endocrinology,Diabetes and Metabolism. Being able to provide excellent health care hasallowed us to be # 3 in the country according to USNews ANDamp; World Report.Did you know that you need to call 48 hours in advance of your scheduled visit,if you are unable to make your appointment? The [facility]in[facility] and MetabolismInstitute thanks you for your commitment, because patients not showing to theirappointment results in a lost opportunity for patients to receive [facility] care at the [facility].To Cancel an appointment, please choose one of the following: - Call the Appointment Call Center at [phone] - From Care Team Connect, Go to Appointments ? Cancel ApptsIf cancelling, consider your need to reschedule to prevent further delays inyour care.To Schedule an appointment, please choose one of the following: - Call the Appointment Call Center at [phone] - From Care Team Connect, Go to Appointments ? Request an Hima Beard MD 03/26/2017 3:15 PM Alex Rizvi is here for a consultation upon the request of Dr. Escobedo regarding: thyroid nodulePCP is Trever Limon, DOHistory of CT scan with intravenous contrast within the last 4 months? NoCC: Thyroid NodulesCurrent Outpatient Prescriptions:eletriptan (RELPAX) 40 mg tablet Take 40 mg by mouth as needed. may repeat in 2hours if necessary Disp: Rfl:No current facility-administered medications for this visit.Patient is taking levothyroxin? NoProvider asking for the consultation:Mayco Escobedo MD[address] [facility] [address] History of Present IllnessThis is a 41 yo F w PMHx of thyroid nodules [facility] right [facility] paralysis who is presenting for afollow-up.She was found to have thyroid nodules incidentally at the beginning of June.She was having back pain so a CT scan was done which showed thyroid nodules.She was sent to see Dr. Vallejo (ENT), who sent her for a thyroid US and she wasfound to have a large right nodule and smaller ones on the left. The noduleswere described as solid. A repeat thyroid US was done by Dr. Vallejo in theoffice after a couple of weeks (unclear why the US was repeated) and he noted asignificant enlargement of the right nodule so an FNA was done which showedatypia. At that time he recommended surgery. She went for surgery, she has aright lobectomy and after viewing the left thyroid they did not recommend thatit be removed.The pathology report showed ANDquot;pre-cancerousANDq uot;Following the procedure the patient states that she did have her voice. Howeverarian noticed that when she tried to speak it slowly began to become more hoarse.She also endorsed dysphagia to solids and liquids. She had an injection intoher right vocal cord (Restylane injection) which helped with the dysphagia buthad no impact on her voice.She was given restylane injection, however her symptoms were worse after theinjection so she transferred to ENT at [facility] for another opinion. She underwentanother procedure with ENT in October 2016 where they removed some of the injectedgel to reverse her symptoms.Following the reversal of the injection, all hersymptoms improved. She can now speak, and has no more hoarseness.She was referred to Dr. Beard for further evaluation of her thyroid. She doesnot want to return to Dr. Vallejo.After her thyroid surgery, her thyroid function was tested and she was toldthat her function was normal. She was not started on any medication for herthyroid.Prior to surgery she never noticed any nodules on her thyroid. No history ofthyroid disease.She just went to [place] and got (Feb 08). Had to be hospitalizedwhen she returned and was found to have a kidney stone. Past Medical ANDamp; Social HistoryHistory of ionizing radiation to the head, neck or chest? noPAST MEDICAL HISTORYDiagnosis Date- Migraine headache with auraPAST SURGICAL HISTORYProcedure Laterality Date- APPENDECTOMY 1986- SECTION HX- THYROIDECTOMY SUBTOTAL/PARTIAL Right 06/2016- TONSILLECTOMY HXFAMILY HISTORYProblem Relation Age of Onset- Hypertension Father- Stroke Maternal Grandmother- Skin Cancer Maternal Grandfather- Diabetes Paternal Grandmother- thyroid disease [OTHER] Paternal Grandmother- Diabetes Paternal Grandfather- Hypertension Paternal Grandfather- Prostate Cancer Paternal GrandfatherSocial History Marital status: Single Spouse name: Years of education: Number of children:Social History Main Topics Smoking status: Former Smoker Packs/day: 0.00 Years: 0.00 Comment: 13 months smoke free; used to smoke 1 pack per week Alcohol use: Yes Comment: social Drug use: No Sexual activity: Yes Partners with: Male Review of SystemsSYSTEMIC: weight gain 20 lbs. Since surgery and low energyEYES: normalCOMMUNICATION: Hearing: normal; Voice: raspyNECK: hoarsenessRESPIRATORY: normalCARDIOVASCULAR: normalGASTRO-INTESTINAL: normalNEUROLOGICAL: normalMUSCULOSKELETAL: No joint pain, stiffness, swelling, cramping or weaknessSKIN: normalPSYCHIATRIC: irritability and anxietyLIBIDO: decreased for a yearSEXUAL-REPRODUCTIVE: normal Physical examinationBP 122/62 Pulse 83 Wt 78.5 kg (173 lb) LMP 02/23/2017 BMI 27.92 kg/m2Body mass index is 27.92 kg/(m2).GENERAL: Well nourished, well hydrated, in no distress and oriented x 3COMMUNICATION: Hearing: normal; VOICE: variableEYES: no thyroid eye signs and PERLNECK: no visible nodules or goiter, no bruit, no tenderness, no adenopathiesand healed neck incision Confirmed. CNTHYROID: s/p right lobectomy; L lobe: non-tender, firm and No palpable nodulesConfirmed. CNHeart RRR with normal S1 and S2, no murmurs, no gallops, no JVD appreciatedLungs clear to auscultationAbdomen bowel sounds normoactive, no bruits, soft, non-tender, non-distended,without organomegaly or palpable masses, no tenderness to palpationEXTREMITIES: No clubbing, no edema, no cyanosis and normal nailsNEURO: normal strength, no tremor and normal reflexes Previous Laboratory Results No results found for: T4, FTI, FT4, TSH, THYGOther:none Cytologynone Pathologynone Imagingnone Impression/Medical ProblemsNew: Patient is referred to me for evaluation of thyroid nodules by Dr. Escobedo.This is a 41 yo F who was found to have thyroid nodules incidentally during aCT scan to evaluate her back pain.Initial thyroid US at [facility] showed multiple nodules, with one dominantnodule on the right and one on the left. She was sent to see ENT (Dr. Vallejo)in June 2016 for these nodules.He repeated the US and noted a significant enlargement of the right nodule soshe had an FNA done which came back as Atypia. It was recommended that she havea lobectomy, which was done on July 06 2016. She was told that the pathologyreport from the right nodule came back as ANDquot;pre-cancerousANDq uot; and thatthe left lobe did not look concerning during surgery. It was recommended thatshe continue following up with serial US, no further treatment would be needed.Her thyroid function was only checked once since surgery (a few weeks after)and she was told that her levels were wnl, she was not started on anymedication for her thyroid.Her surgery was complicated by R vocal cord paralysis and dysphagia s/phyaluronic acid injection which worsened her symptoms. She transferred care [facility] in and has been seen by Dr. Escobedo (ENT) who did a reversed thehyaluronic acid injection since it caused vocal cord swelling resulting in aninability to speak. Since her surgery in October with Dr. Escobedo, her voice hasreturned and is functioning at 85%. She is no longer experiencing dysphagia.She is now coming to see endocrinology for further evaluation of her thyroidnodules.She has also noted worsening fatigue and irritability for the last few months.She states that she falls asleep at 5-6pm every day (this is new for her).Her thyroid function has not been checked in several months and there is a highlikelihood that patient is hypothyroid at this time.Further more, the pathology report stating ANDquot;pre-cancerousANDq uot; nodule isunclear. Without records from [facility], including ultrasound images and CTscan images and report, reports from Dr. Vallejo's office, pathology report, andpathology report, it is hard to determine the extent of the patient's thyroiddisease. Recommendations- Asked patient to get a hold of her records from [facility] and Dr. Vallejo'soffice. The records being requested include: thyroid ultrasound done [facility], CT scan done at [facility], ultrasound report and HANDamp;Ps from , surgical pathology report.- In the meantime, will have patient repeat a thyroid US evaluate right thyroidbed, left lobe and lymph nodes- Will have patient obtain labs: TSH and fT4 to evaluate if she is currentlyhypothyroid, in which case she may need to start medication.Will see her in follow up in depending on results.Li Rose MDInternal Medicine PGY-2Pager #[phone] 20164:45 pmEndocrinology StaffConsult Patient is sent at the request of Dr. Mayco Escobedo for my opinionregarding thyroid nodules. My final recommendations will be communicated backto the requesting physician by way of shared Medical Record and a copy oftoday's office notes. and Seen with clinician: I have seen and evaluated thepatient. I have reviewed the History, Exam, and Plan as documented by theresident.Rita was found to have thyroid nodules incidentally in June 2016.This was on a CT of the cervical spine done because she was complaining ofupper back pain.She saw Dr. Vallejo, ENT who did an FNA that showed atypical cells.Right lobectomy complicated by right vocal cord paralysis. Dr. Vallejo told herthe nodule was ANDquot;pre-cancerousANDq uot; and told her not to worry. Leftnodule. Dr. Vallejo told her it did not need to come out.He did a Restylane injection in the paralyzed cord. Voice got worse.Dr. Escobedo removed the Restylane and voice got better.Impression and Recommendations:As above per Dr. Rose.Obtain an ultrasound. [facility]I think she is hypothyroid. Obtain TSH and T4, free.She will have those locally.She will try to obtain the previous records.I will check with Dr. Escobedo to see if he has those records.Follow up depending on the results.Bayron Lora Provider: MAYCO ESCOBEDO [[id number]]Allergies As of Date: 03/18/2017 Noted Allergy ReactionVANTIN (CEFPODOXIME) 09/22/2016 2 - RashDate Reviewed: 03/18/2017Reviewed by: Nova De Jesus Ma - Fully AssessedReason for Visit: Thyroid Problem [110]Primary Visit Diagnosis:Multiple thyroid nodules [E04.2] Other Visit Diagnosis:Vocal cord paralysis, unilateral complete [J38.01]Prescriptions as of 03/18/2017 Sig: ELETRIPTAN HBR 40 MG TABLET Take 40 mg by mouth as needed*Problem List As Of Date: 03/18/2017(None) Other instructions from your clinician: Thank you for choosing the [facility] Department of Endocrinology, Diabetes and Metabolism. Being able to provide excellent health care has allowed us to be # 3 in the country according to USNews AND World Report. Did you know that you need to call 48 hours in advance of your scheduled visit, if you are unable to make your appointment? The Endocrinology and Metabolism [place] thanks you for your commitment, because patients not showing to their appointment results in a lost opportunity for patients to receive [facility] health care at the [facility]. To Cancel an appointment, please choose one of the following: - Call the Appointment Call Center at [phone] - From Care Team Connect, Go to Appointments ? Cancel Appts If cancelling, consider your need to reschedule to prevent further delays in your care. To Schedule an appointment, please choose one of the following: - Call the Appointment Call Center at [phone] - From Care Team Connect, Go to Appointments ? Request an ApptMedications Discontinued During This Encounter methylPREDNISolone (MEDROL, MELANY,) 4 * 1 Pa* 0 10/21/2016 03/18/2017 Class: Print RX Sig: Take by mouth. As directed on package Disc: Reason for discontinue is not on file. HYDROcodone-acetaminophen (NORCO) 5-* 12 t* 0 10/21/2016 03/18/2017 Class: Print RX Route: ORAL Sig: Take 1 tablet by mouth every 6 hours as needed. Disc: Reason for discontinue is not on file.Disposition: Return in about 1 year (around 03/18/2018), or if symptoms worsen or fail to improve.Follow-up and Disposition History RecordedLetter Patrick Beard MD, FACE, FACPDirector - Thyroid CenterDirector ? Endocrinology Fellowship ProgramEndocrinology AND Metabolism [address]/ [place] [id number]: appointments: [facility]: [facility]To whom it may concern:RE: Rita Szymanski: 1975Dear Sir or ,Please do the following test:Thyroid ultrasoundDiagnoses:Multi ple thyroid nodulesICD.10: E04.2Please mail the disc with previous ultrasound study to above address.Please fax result to Giovanni Beard MD [phone].Sincerely,Fabiola Beard MDLettrobert Beard MD, FACE, FACPDirector - Thyroid CenterDirector ? Endocrinology Fellowship ProgramEndocrinology AND Metabolism [address]/ [place], [place] [address]Office: appointments: Fax: [facility] 2016To whom it may concern:RE: Rita RizviDOB: 1975Dear Sir or Madam,Please do the following tests:TSHT4, freeDiagnoses:Multiple thyroid nodulesICD.10: E04.2Please fax result to Giovanni Beard MD [phone].Sincerely,Fabiola Beard MDEncounter Number: [id number] Status:Closed by GIOVANNI BEARD MD on 03/26/17 [facility] PROGRESSon 03-18-2017 PROGRESS HNO ID: [id number] thor: Giovanni Otooleervice: (none)Author Type: PhysicianType: Progress NotesFiled: 03/26/2017 3:15 PMNote Text:Rita Rizvi is here for a consultation upon the request of Dr. Escobedoregarding: thyroid nodulePCP is Trever Limon, DOHistory of CT scan with intravenous contrast within the last 4 months? NoCC: Thyroid NodulesCurrent Outpatient Prescriptions:eletriptan (RELPAX) 40 mg tablet Take 40 mg by mouth as needed. may repeatin 2 hours if necessary Disp: Rfl:No current facility-administered medications for this visit.Patient is taking levothyroxin? NoProvider asking for the consultation:Mayco Escobedo MD[address] [place] [address] History of Present IllnessThis is a 41 yo F w PMHx of thyroid nodules [facility] right vocal cord paralysis who is presenting for afollow-up.She [facility] She was having back pain so a CT scan was done which showed thyroidnodules. She was sent to see Dr. Vallejo (ENT), who sent her for a thyroidUS and she was found to have a large right nodule and smaller ones on theleft. The nodules were described as solid. A repeat thyroid US was done byDr. Vallejo in the office after a couple of weeks (unclear why the US wasrepeated) and he noted a significant enlargement of the right nodule so anFNA was done which showed atypia. At that time he recommended surgery. [place] for surgery, she has a right lobectomy and after viewing the leftthyroid they did not recommend that it be removed.The pathology report showed pre-cancerous Following the procedure the patient states that she did have her voice.However she noticed that when she tried to speak it slowly began to becomemore hoarse. She also endorsed dysphagia to solids and liquids. She had aninjection into her right vocal cord (Restylane injection) which helpedwith the dysphagia but had no impact on her voice.She was given restylane injection, however her symptoms were worse afterthe injection so she transferred to ENT at [facility] for another opinion. Sheunderwent another procedure with ENT in October 2016 where they removed someof the injected gel to reverse her symptoms.Following the reversal of theinjection, all her symptoms improved. She can now speak, and has no morehoarseness.She was referred to Dr. Beard for further evaluation of her thyroid. [facility] to Dr. Vallejo.After her thyroid surgery, her thyroid function was tested and she wastold that her function was normal. She was not started on any medicationfor her thyroid.Prior to surgery she never noticed any nodules on her thyroid. No historyof thyroid disease.She just went to [place] and got (Feb 08). Had to behospitalized when she returned and was found to have a kidney stone. Past Medical AND Social HistoryHistory of ionizing radiation to the head, neck or chest? noPAST MEDICAL HISTORYDiagnosis Date- Migraine headache with auraPAST SURGICAL HISTORYProcedure Laterality Date- APPENDECTOMY 1986- SECTION HX- THYROIDECTOMY SUBTOTAL/PARTIAL Right 06/2016- TONSILLECTOMY HXFAMILY HISTORYProblem Relation Age of Onset- Hypertension Father- Stroke Maternal Grandmother- Skin Cancer Maternal Grandfather- Diabetes Paternal Grandmother- thyroid disease [OTHER] Paternal Grandmother- Diabetes Paternal Grandfather- Hypertension Paternal Grandfather- Prostate Cancer Paternal GrandfatherSocial History Marital status: Single Spouse name: Years of education: Number of children:Social History Main Topics Smoking status: Former Smoker Packs/day: 0.00 Years: 0.00 Comment: 13 months smoke free; used to smoke 1 pack per week Alcohol use: Yes Comment: social Drug use: No Sexual activity: Yes Partners with: Male Review of SystemsSYSTEMIC: weight gain 20 lbs. Since surgery and low energyEYES: normalCOMMUNICATION: Hearing: normal; Voice: raspyNECK: hoarsenessRESPIRATORY: normalCARDIOVASCULAR: normalGASTRO-INTESTINAL: normalNEUROLOGICAL: normalMUSCULOSKELETAL: No joint pain, stiffness, swelling, cramping or weaknessSKIN: normalPSYCHIATRIC: irritability and anxietyLIBIDO: decreased for a yearSEXUAL-REPRODUCTIVE: normal Physical examinationBP 122/62 Pulse 83 Wt 78.5 kg (173 lb) LMP 02/23/2017 BMI 27.92kg/m2Body mass index is 27.92 kg/(m2).GENERAL: Well nourished, well hydrated, in no distress and oriented x 3COMMUNICATION: Hearing: normal; VOICE: variableEYES: no thyroid eye signs and PERLNECK: no visible nodules or goiter, no bruit, no tenderness, noadenopathies and healed neck incision Confirmed. CNTHYROID: s/p right lobectomy; L lobe: non-tender, firm and No palpablenodules Confirmed. CNHeart RRR with normal S1 and S2, no murmurs, no gallops, no JVDappreciatedLungs clear to auscultationAbdomen bowel sounds normoactive, no bruits, soft, non-tender,non-distended, without organomegaly or palpable masses, no tenderness topalpationEXTREMITIES: No clubbing, no edema, no cyanosis and normal nailsNEURO: normal strength, no tremor and normal reflexes Previous Laboratory Results No results found for: T4, FTI, FT4, TSH, THYGOther:none Cytologynone Pathologynone Imagingnone Impression/Medical ProblemsNew: Patient is referred to me for evaluation of thyroid nodules by .This is a 41 yo F who was found to have thyroid nodules incidentallyduring a CT scan to evaluate her back pain.Initial thyroid US at [facility] showed multiple nodules, with one dominantnodule on the right and one on the left. She was sent to see ENT () in June 2016 for these nodules.He repeated the US and noted a significant enlargement of the right noduleso she had an FNA done which came back as Atypia. It was recommended thatshe have a lobectomy, which was done on July 06 2016. She was told thatthe pathology report from the right nodule came back as pre-cancerous and that the left lobe did not look concerning during surgery. It wasrecommended that she continue following up with serial US, no furthertreatment would be needed. Her thyroid function was only checked oncesince surgery (a few weeks after) and she was told that her levels werewnl, she was not started on any medication for her thyroid.Her surgery was complicated by R vocal cord paralysis and dysphagia s/phyaluronic acid injection which worsened her symptoms. [facility]care [facility] in September/October and has been seen by Dr. Escobedo (ENT) who did areversed the hyaluronic acid injection since it caused vocal cord swellingresulting in an inability to speak. Since her surgery in October with , her voice has returned and is functioning at 85%. She is no longerexperiencing dysphagia.She is now coming to see endocrinology for further evaluation of herthyroid nodules.She has also noted worsening fatigue and irritability for the last fewmonths. She states that she falls asleep at 5-6pm every day (this is newfor her).Her thyroid function has not been checked in several months and there is ahigh likelihood that patient is hypothyroid at this time.Further more, the pathology report stating pre-cancerous nodule isunclear. Without records from [facility], including ultrasound images andCT scan images and report, reports from Dr. Vallejo's office, pathologyreport, and pathology report, it is hard to determine the extent of thepatient's thyroid disease. Recommendations- Asked patient to get a hold of her records from [facility] and 's office. The records being requested include: thyroid ultrasounddone at [facility], CT scan done at [facility], ultrasound report and HANDPsfrom Dr. Vallejo, surgical pathology report.- In the meantime, will have patient repeat a thyroid US evaluate rightthyroid bed, left lobe and lymph nodes- Will have patient obtain labs: TSH and fT4 to evaluate if she iscurrently hypothyroid, in which case she may need to start medication.Will see her in follow up in depending on results.Li Rose MDInternal Medicine PGY-2Pager #[phone] [id number]:45 pmEndocrinology StaffConsult Patient is sent at the request of Dr. Mayco Escobedo for my opinionregarding thyroid nodules. My final recommendations will be communicatedback to the requesting physician by way of shared Medical Record and acopy of today's office notes. and Seen with clinician: I have seen andevaluated the patient. I have reviewed the History, Exam, and Plan asdocumented by the resident.Rita was found to have thyroid nodules incidentally in June 2016.This was on a CT of the cervical spine done because she was complaining ofupper back pain.She saw Dr. Vallejo, ENT who did an FNA that showed atypical cells.Right lobectomy complicated by right vocal cord paralysis. Dr. Macktold her the nodule was pre-cancerous and told her not to worry. Leftnodule. Dr. Vallejo told her it did not need to come out.He did a Restylane injection in the paralyzed cord. Voice got worse.Dr. Escobedo removed the Restylane and voice got better.Impression and Recommendations:As above per Dr. Rose.Obtain an ultrasound. Have this and the previous imaging studies sent maddie for review.I think she is hypothyroid. Obtain TSH and T4, free.She will have those locally.She will try to obtain the previous records.I will check with Dr. Escobedo to see if he has those records.Follow up depending on the results.Giovanni Beard MD [facility] CNOVon 03-10-2017 CNOV Office Visit (OTOLMN) RITA RIZVI ([id number]) 1975 [facility] Time Provider Cheewujklk39/30/17 2:20 PM MAYCO ESCOBEDO During your visit today, we recorded the following information about you:Zohreh Pyle 03/10/2017 2:32 PM SignedTobacco Use: Quit (6 months smoke free)Was smoking cessation packet given? 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 Kirkpatrick in [place], [place] with over medialization andworsening of her voice subsequently s/p removal of restylane by Dr. Escobedo on10/21/16 seen today for follow up.Stroboscopy shows regained movement of the right true vocal fold with very mildparesis with a slight decrease in mucosal wave amplitude.Overall, her voice is strong and she is very satisfied with it; she does wishshe could sing as she has been unable to do so since her surgery. Discussedvoice therapy, however, she would like to defer this for now.She will follow up as scheduled with Dr. Beard to establish care for her thyroidnodules.The patient was seen with the resident, Zara Woodward MD. The resident obtainedthe initial history and performed the physical exam. I obtained furtherhistory, clarifying the salient points, and also performed/verified thephysical exam findings.I directly supervised endoscopy and repeated/confirmed the findings whereneeded.Mayco Escobedo MDHPI: The patient is a 41 yo F w/ right vocal fold paresis after a rightpartial thyroidectomy who underwent OR based Restylane injection [place] Dr. [place], [place] with over medialization and worsening of her voicesubsequently s/p removal of her previous restylane on 10/[address] Escobedo who isseen today for follow up.Since last visit on 11/08/2016, patient has been doing well.She states her voice has remained strong and stable and feels it is about ~85%back to normal.She endorses some ANDquot;crackingANDquot; and states her voice will sometimes giveout by the end of the day with excessive use.She is unable to sing as she was prior to her thyroid surgery but states she isoverall satisfied with the quality of her voice.She reports occasional coughing when she eats very fast denies any dysphagia,odynophagia. No recent pneumonias.She has an appointment with Dr. Beard next week to establish care for herthyroid nodules.ALLERGIESAllergen Reactions- Vantin [Cefpodoxime] RashCurrent Outpatient Prescriptions:eletriptan (RELPAX) 40 mg tablet Take 40 mg by mouth as needed. may repeat in 2hours if necessaryHYDROcodone-acet aminophen (NORCO) 5-325 mg per tablet Take 1 tablet by mouthevery 6 hours as needed.methylPREDNISolone (MEDROL, MELANY,) 4 mg Dose-Pack Take by mouth. As directed [facility] current facility-administered medications for this visit.No past medical history on file.No past surgical history on file.Social History:Social HistorySubstance Use Topics- Smoking status: Former Smoker- Smokeless tobacco: Not on file Comment: 6 months smoke free- Alcohol use Not on fileFamily History: No family history of ENT problemsPHYSICAL EXAM: On physical examination Rita Rizvi is a well-developed, wellnourished female. The voice is strong, with very mild cracking.Cranial nerves II-XII are grossly intactMental status revealed patient to be alert and oriented. Mood is appropriate.Details of the physical examination:HEAD AND FACE: Physical examination of the head, neck, external nose, externalears, mouth and face fails to demonstrate any significant abnormality orasymmetry to critical face to face observation.Skin and scalp are normal.Pulmonary: There is no respiratory distress or increased work of breathing.Oral cavity/Oropharynx: The lips, tongue, buccal mucosal, soft ANDamp; hardpalate demonstrate no lesions or masses. The tonsil areas demonstrate nolesions or masses.Nose: The external anatomy appears normal. The septum and turbinates are normalLARYNX: I performed flexible fiberoptic laryngoscopy with stroboscopy becausemirror exam did not provide adequate visualization or detail.NECK: The neck appears symmetric with well healed scar centrally. Soft withoutmasses or LADPROCEDURE NOTE:Laryngoscopy with videostroboscopy was performed because of the followingindication: high resolution assessment of vocal fold oscillation and laryngealbiomechanics: After spraying the nose with xylocaine/neosynephrine, theflexible scope was placed in a transnasal fashion. The nasopharynx, oropharynx,hypopharynx including the pyriform sinuses were normal. The base of tongueshowed no gross lesions. The larynx itself shows mild right sided vocal cordhypomobility. Left vocal cord movement is normal. There was mild glottic gapposteriorly. At the level of the true vocal folds with stroboscopy, thepatient was able to entrain vocal fold oscillation and the mucosal waves werenoted to be of slightly decreased amplitude on the right, though phase symmetrywas intact. The immediate subglottic airway was patent.Pt tolerated the procedure well, and there were no complications. Theprocedure was performed by Dr. Mayco Escobedo / Dr. Zara Woodward.The patient was seen with the resident, Dr. Zara Woodward. The resident obtainedthe initial history and performed the physical exam. I obtained furtherhistory, clarifying the salient points, and also performed/verified thephysical exam findings.I directly supervised endoscopy, including insertion and removal, andrepeated/confirmed the findings where needed.Referring Provider: MAYCO ESCOBEDO [[id number]]Allergies As of Date: 03/10/2017 Noted Allergy ReactionVANTIN (CEFPODOXIME) 09/22/2016 2 - RashDate Reviewed: 03/10/2017Reviewed by: Zohreh Pyle - Fully AssessedReason for Visit: Establish Care [42] Cmt: follow upPrimary Visit Diagnosis:Vocal cord paresis [J38.00] Other Visit Diagnoses:Thyroid nodule [E04.1] Dysphonia [R49.0]Prescriptions as of 03/10/2017 Sig: ELETRIPTAN HBR 40 MG TABLET Take 40 mg by mouth as needed* HYDROCODONE 5 MG-ACETAMINOPHE* Take 1 tablet by mouth every * METHYLPREDNISOLONE 4 MG TABLE* Take by mouth. As directed on*Problem List As Of Date: 03/10/2017(None)Visit Notes:>> Zohreh Locke Mar 10, 2017 2:32 PM Status: SignedTobacco Use: Quit (6 months smoke free)Was smoking cessation packet given? N/A - Patient is a non-smoker or quit>1 year ago.Was a referral initiated?N/A Patient is a non-smokerDisposition: Return if symptoms worsen or fail to improve.Follow-up and Disposition History RecordedEncounter Number: [id number] Status:Closed by MAYCO ESCOBEDO MD on 03/12/17 [facility] PROGRESSon 03-10-2017 PROGRESS HNO ID: [id number] thor: Mayco Rangel: (none)Author Type: PhysicianType: Progress NotesFiled: 03/12/2017 12:54 PMNote Text:CC: Rita Rizvi is a 41 year old female seen as a return patient with ahistory of right sided vocal fold paresis after a right partialthyroidectomyLast seen 11/08/2016IMPRESSION AND PLANS: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 Kirkpatrick in [place], [place] with overmedialization and worsening of her voice subsequently s/p removal ofrestylane by Dr. Escobedo on 10/21/16 seen today for follow up.Stroboscopy shows regained movement of the right true vocal fold with verymild paresis with a slight decrease in mucosal wave amplitude.Overall, her voice is strong and she is very satisfied with it; she doeswish she could sing as she has been unable to do so since her surgery.Discussed voice therapy, however, she would like to defer this for now.She will follow up as scheduled with Dr. Beard to establish care for herthyroid nodules.The patient was seen with the resident, Zara Woodward MD. The residentobtained the initial history and performed the physical exam. 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 who underwent OR based Restylane injection by in [place], [place] with over medialization and worsening of hervoice subsequently s/p removal of her previous restylane on 10/21 by who is seen today for follow up.Since last visit on 11/08/2016, patient has been doing well.She states her voice has remained strong and stable and feels it is about~85% back to normal.She endorses some cracking and states her voice will sometimes give outby the end of the day with excessive use.She is unable to sing as she was prior to her thyroid surgery but statesshe is overall satisfied with the quality of her voice.She reports occasional coughing when she eats very fast denies anydysphagia, odynophagia. No recent pneumonias.She has an appointment with Dr. Beard next week to establish care for herthyroid nodules.ALLERGIESAllergen Reactions- Vantin [Cefpodoxime] RashCurrent Outpatient Prescriptions:eletriptan (RELPAX) 40 mg tablet Take 40 mg by mouth as needed. may repeatin 2 hours if necessaryHYDROcodone-acet aminophen (NORCO) 5-325 mg per tablet Take 1 tablet bymouth every 6 hours as needed.methylPREDNISolone (MEDROL, MELANY,) 4 mg Dose-Pack Take by mouth. Asdirected on packageNo current facility-administered medications for this visit.No past medical history on file.No past surgical history on file.Social History:Social HistorySubstance Use Topics- Smoking status: Former Smoker- Smokeless tobacco: Not on file Comment: 6 months smoke free- Alcohol use Not on fileFamily History: No family history of ENT problemsPHYSICAL EXAM: On physical examination Rita Rizvi is a well-developed,well nourished female. The voice is strong, with very mild cracking.Cranial nerves II-XII are grossly intactMental status revealed patient to be alert and oriented. Mood isappropriate.Details of the physical examination:HEAD AND FACE: Physical examination of the head, neck, external nose,external ears, mouth and face fails to demonstrate any significantabnormality or asymmetry to critical face to face observation.Skin and scalp are normal.Pulmonary: There is no respiratory distress or increased work ofbreathing.Oral cavity/Oropharynx: The lips, tongue, buccal mucosal, soft AND hardpalate demonstrate no lesions or masses. The tonsil areas demonstrate nolesions or masses.Nose: The external anatomy appears normal. The septum and turbinates arenormalLARYNX: I performed flexible fiberoptic laryngoscopy with stroboscopybecause mirror exam did not provide adequate visualization or detail.NECK: The neck appears symmetric with well healed scar centrally. Softwithout masses or LADPROCEDURE NOTE:Laryngoscopy with videostroboscopy was performed because of the followingindication: high resolution assessment of vocal fold oscillation andlaryngeal biomechanics: After spraying the nose withxylocaine/neosynephri ne, the flexible scope was placed in a transnasalfashion. The nasopharynx, oropharynx, hypopharynx including the pyriformsinuses were normal. The base of tongue showed no gross lesions. Thelarynx itself shows mild right sided vocal cord hypomobility. Left vocalcord movement is normal. There was mild glottic gap posteriorly. At thelevel of the true vocal folds with stroboscopy, the patient was able toentrain vocal fold oscillation and the mucosal waves were noted to be ofslightly decreased amplitude on the right, though phase symmetry wasintact. The immediate subglottic airway was patent.Pt tolerated the procedure well, and there were no complications. Theprocedure was performed by Dr. Mayco Escobedo / Dr. Zara Woodward.The patient was seen with the resident, Dr. Zara Woodward. The residentobtained the initial history and performed the physical exam. I obtainedfurther history, clarifying the salient points, and alsoperformed/verified the physical exam findings.I directly supervised endoscopy, including insertion and removal, andrepeated/confirmed the findings where needed. Normal [facility] CNCOon 11-08-2016 CNCO Letter Erna Escobedo MD, [facility] NETWORKHead, Section of LaryngologyDirector, the Voice [address] [place], [place] [address]Bor: [phone] 2016To Whom It May Concern:Rita Rizvi was seen today for a postoperative follow up. She is released tofull unrestricted work duties after November 08, 2016. If you have any furtherquestions, please give my office a call.Sincerely yours,Mayco Escobedo MD Normal [facility] CNOVon 11-08-2016 CNOV Office Visit (OTOLMN) RITA RIZVI ([id number]) 1975 [facility] Time Provider Department11/08/16 10:00 AM MAYCO ESCOBEDO During your visit today, we recorded the following information about you:Shanelle Abi Aviles 11/08/2016 10:16 AM SignedTobacco Use: Quit (6 months smoke free)Was smoking cessation packet given? N/A - Patient is a non-smoker or quit ANDgt;1year ago.Was a referral initiated?N/A Patient is a non-smokerMayco Escobedo MD 11/14/2016 6:08 AM SignedCC: Rita Rizvi is a 41 year old female seen as a return patient with a historyof right sided vocal fold paresis s/p partial thyroidectomyIMPRESSION AND PLANS:Rita Rizvi is a 41 year old female who experienced a right sided vocal foldparesis after a right partial thyroidectomy who had OR based restylaneinjection done in [place]. She had over medialization with a pressed voiceand underwent removal of the restylane on 10/25 and she has benefited from vocalimprovement. Additionally, it appears that her right true vocal fold hasregained some movement though is still slightly paretic with a mild decrease inmucosal wave amplitude. We expect that she will continue to improve with timeand will plan to see her back in 2-3 months. Additionally, she is interestedin transferring her thyroid surveillance to [facility]. She believes she had a benignthyroid pathology and we will recommend follow up with Dr. Purvi gallardo for surveillance.The patient was seen with the resident, Andreea Olivarez MD. The residentobtained the initial history and performed the physical exam. I obtainedfurther history, clarifying the salient points, and also performed/verified thephysical exam findings.I directly supervised endoscopy and repeated/confirmed the findings whereneeded.REYES LiaoI:Ms. Rizvi is a 41 year old female who experienced right vocal fold paresisafter a right partial thyroidectomy and underwent an OR based Restylaneinjection and had worsening of her voice after this procedure. In the office,her right vocal fold had near-normal motion, and the right fold wasoverinjected and medialized, distorting her vocal fold. She underwent removalof her previous restylane injection on 10/21 and returns today for follow up.She reports significant improvement in her voice. She doesn't quite feel she'sback to 100% and has some ANDquot;crackingANDquot; and will sometimes give out bythe end of the day. She does however, feel she is better than immediatelyafter her thyroid surgery. Of note, she was following thyroid nodules with Meg[facility] in [place], but is interested in transferring her care to [facility].ALLERGIESAllergen Reactions- Vantin [Cefpodoxime] RashCurrent Outpatient Prescriptions:HYDROcodone -acetaminophen (NORCO) 5-325 mg per tablet Take 1 tablet by mouthevery 6 hours as needed.methylPREDNISolone (MEDROL, MELANY,) 4 mg Dose-Pack Take by mouth. As directed onpackageeletriptan (RELPAX) 40 mg tablet Take 40 mg by mouth as needed. may repeat in 2hours if necessaryNo current facility-administered medications for this visit.No past medical history on file.No past surgical history on file.Social History:Social HistorySubstance Use Topics- Smoking status: Former Smoker- Smokeless tobacco: Not on file Comment: 6 months smoke free- Alcohol use Not on fileFamily History: No family history of ENT problemsPHYSICAL EXAM: On physical examination Rita Rizvi is a well-developed, wellnourished female. The voice is strong, with very mild cracking..Cranial nerves II-XII are grossly intactMental status revealed patient to be alert and oriented. Mood is appropriate.Details of the physical examination:HEAD AND FACE: Physical examination of the head, neck, external nose, externalears, mouth and face fails to demonstrate any significant abnormality orasymmetry to critical face to face observation.Skin and scalp are normal.Pulmonary: There is no respiratory distress or increased work of breathing.Oral cavity/Oropharynx: The lips, tongue, buccal mucosal, soft ANDamp; hardpalate demonstrate no lesions or masses. The tonsil areas demonstrate nolesions or masses.Nose: The external anatomy appears normal. The septum and turbinates are normalLARYNX: See procedure noteNECK: The neck remains soft without masses or LADPROCEDURE NOTE:Laryngoscopy with videostroboscopy was performed because of the followingindication: high resolution assessment of vocal fold oscillation and laryngealbiomechanics: After spraying the nose with xylocaine/neosynephrine, theflexible scope was placed in a transnasal fashion. The nasopharynx, oropharynx,hypopharynx including the pyriform sinuses were normal. The base of tongueshowed no gross lesions. The larynx itself shows very mild right sided paresis,though excursion is overall good. There is some mild right sided true vocalfold erythema that appears post surgical. Left sided movement is intact. Atthe level of the true vocal folds with stroboscopy, the patient was able toentrain vocal fold oscillation and the Mucosal waves were noted to be ofslightly decreased amplitude on the right, though phase symmetry was intact.The immediate subglottic airway was patentPt tolerated the procedure well, and there were no complications. Theprocedure was performed by Dr. Mayco Escobedo / Dr. Andreea Faith NelsonReferring Provider: MAYCO ESCOBEDO [[id number]]Allergies As of Date: 11/08/2016 Noted Allergy ReactionVANTIN (CEFPODOXIME) 09/22/2016 2 - RashDate Reviewed: 11/08/2016Reviewed by: Shanelle Domingo Ma - Fully AssessedReason for Visit: Surgical Followup [104]Primary Visit Diagnosis:Unilateral vocal fold paresis [J38.01] Other Visit Diagnoses:Thyroid nodule [E04.1] Dysphonia [R49.0]Order(s):CONSULT TO ENDOCRINOLOGY [9007] Order #: [id number]: 1Prescriptions as of 11/08/2016 Sig: HYDROCODONE 5 MG-ACETAMINOPHE* Take 1 tablet by mouth every * METHYLPREDNISOLONE 4 MG TABLE* Take by mouth. As directed on* ELETRIPTAN HBR 40 MG TABLET Take 40 mg by mouth as needed*Medication notes this encounter HYDROCODONE 5 MG-ACETAMINOPHEN 325 MG TABLET >> Shanelle Domingo Ma 11/08/2016 10:15 AM >> SHANELLE DOMINGO MA TueNov 08, 2016 10:15 AM Not taking METHYLPREDNISOLONE 4 MG TABLETS IN A DOSE PACK >> Shanelle Domingo Ma 11/08/2016 10:15 AM >> SHANELLE DOMINGO MA TueNov 08, 2016 10:15 AM FinishedProblem List As Of Date: 11/08/2016(None)Visit Notes:>> Shanelle Domingo Ma TueNov 08, 2016 10:15 AM Status: SignedTobacco Use: Quit (6 months smoke free)Was smoking cessation packet given? N/A - Patient is a non-smoker or quit>1 year ago.Was a referral initiated?N/A Patient is a non-smokerDisposition: Return in about 3 months (around 02/08/2017).Follow-up and Disposition History RecordedLetter Erna Escobedo MD, [facility], Section of LaryngologyDirector, The Voice [address] [place] [id number]: [phone] 2016To Whom It May Concern:Rita Rizvi was seen today for postoperative follow up care for unilateralvocal cord paresis. She is released to full unrestricted work duties afterJuly 2016. If you have any further questions, please let me know.Sincerely yours,Mayco Escobedo MDEncounter Number: [id number] Status:Closed by MAYCO ESCOBEDO MD on 11/14/16 [facility] PROGRESSon 11-08-2016 PROGRESS HNO ID: [id number] thor: Mayco Rangel: (none)Author Type: PhysicianType: Progress NotesFiled: 11/14/2016 6:08 AMNote Text:CC: Rita Rizvi is a 41 year old female seen as a return patient with ahistory of right sided vocal fold paresis s/p partial thyroidectomyIMPRESSION AND PLANS:Rita Rizvi is a 41 year old female who experienced a right sided vocalfold paresis after a right partial thyroidectomy who had OR basedrestylane injection done in [place]. She had over medialization with apressed voice and underwent removal of the restylane on 10/25 and she hasbenefited from vocal improvement. Additionally, it appears that her righttrue vocal fold has regained some movement though is still slightlyparetic with a mild decrease in mucosal wave amplitude. We expect thatarian will continue to improve with time and will plan to see her back in2-3 months. Additionally, she is interested in transferring her thyroidsurveillance to [facility]. She believes she had a benign thyroid pathology andwe will recommend follow up with Dr. Beard in [facility]ocrinology [facility].The patient was seen with the resident, Andreea Olivarez MD. Theresident obtained the initial history and performed the physical exam. Iobtained further history, clarifying the salient points, and alsoperformed/verified the physical exam findings.I directly supervised endoscopy and repeated/confirmed the findings whereneeded.Mayco Escobedo MDHPI:Ms. Rizvi is a 41 year old female who experienced right vocal foldparesis after a right partial thyroidectomy and underwent an OR basedRestylane injection and had worsening of her voice after this procedure.In the office, her right vocal fold had near-normal motion, and the rightfold was overinjected and medialized, distorting her vocal fold. Sheunderwent removal of her previous restylane injection on 10/21 and returnstoday for follow up. She reports significant improvement in her voice.She doesn't quite feel she's back to 100% and has some cracking and willsometimes give out by the end of the day. She does however, feel she isbetter than immediately after her thyroid surgery. Of note, she wasfollowing thyroid nodules with an ENT in [place], but is interested intransferring her care to [facility].ALLERGIESAllergen Reactions- Vantin [Cefpodoxime] RashCurrent Outpatient Prescriptions:HYDROcodone -acetaminophen (NORCO) 5-325 mg per tablet Take 1 tablet bymouth every 6 hours as needed.methylPREDNISolone (MEDROL, MELANY,) 4 mg Dose-Pack Take by mouth. Asdirected on packageeletriptan (RELPAX) 40 mg tablet Take 40 mg by mouth as needed. may repeatin 2 hours if necessaryNo current facility-administered medications for this visit.No past medical history on file.No past surgical history on file.Social History:Social HistorySubstance Use Topics- Smoking status: Former Smoker- Smokeless tobacco: Not on file Comment: 6 months smoke free- Alcohol use Not on fileFamily History: No family history of ENT problemsPHYSICAL EXAM: On physical examination Rita Rizvi is a well-developed,well nourished female. The voice is strong, with very mild cracking..Cranial nerves II-XII are grossly intactMental status revealed patient to be alert and oriented. Mood isappropriate.Details of the physical examination:HEAD AND FACE: Physical examination of the head, neck, external nose,external ears, mouth and face fails to demonstrate any significantabnormality or asymmetry to critical face to face observation.Skin and scalp are normal.Pulmonary: There is no respiratory distress or increased work ofbreathing.Oral cavity/Oropharynx: The lips, tongue, buccal mucosal, soft AND hardpalate demonstrate no lesions or masses. The tonsil areas demonstrate nolesions or masses.Nose: The external anatomy appears normal. The septum and turbinates arenormalLARYNX: See procedure noteNECK: The neck remains soft without masses or LADPROCEDURE NOTE:Laryngoscopy with videostroboscopy was performed because of the followingindication: high resolution assessment of vocal fold oscillation andlaryngeal biomechanics: After spraying the nose withxylocaine/neosynephri ne, the flexible scope was placed in a transnasalfashion. The nasopharynx, oropharynx, hypopharynx including the pyriformsinuses were normal. The base of tongue showed no gross lesions. Thelarynx itself shows very mild right sided paresis, though excursion isoverall good. There is some mild right sided true vocal fold erythemathat appears post surgical. Left sided movement is intact. At the levelof the true vocal folds with stroboscopy, the patient was able to entrainvocal fold oscillation and the Mucosal waves were noted to be of slightlydecreased amplitude on the right, though phase symmetry was intact. Theimmediate subglottic airway was patentPt tolerated the procedure well, and there were no complications. Theprocedure was performed by Dr. Mayco Escobedo / Dr. Andreea Olivarez [facility] Holli 10-21-2016 ANES POST HNO ID: [id number] thor: Xenia StoneSerlindseye: AnesthesiologyAuthor Type: AnesthesiologistType: Anesthesia PostOpFiled: 10/21/2016 4:25 PMNote Text:POST ANESTHESIA EVALUATION NOTESERVICE DATE: 10/21/2016SERVICE TIME: 4:25 PMDOB: 1975Vitals: 10/22/1715Temp: 36.9 ?C (98.4 ?F) 36.3 ?C (97.3 ?F) 10/22/1715P: 114/71 142/73 134/82 10/22/1715Pulse: 69 60 63 10/22/1715Resp: 16 16 16 10/22/1715SpO2: 99% 100% 100%Validated Vital Signs: YesNo apparent anesthetic complications. The patient is appropriatelyhydrated with stable respiratory and cardiovascular status. Patient hassafe and adequate airway control. The patient has appropriate pain reliefand no significant post operative nausea or vomiting. The patient hasachieved baseline mental status.Further assessment by Anesthesia Service: NoneOther Remarks:SIGNATURE: Xenia Stone MD PATIENT NAME: Rita RizviDATE: October 21, 2016 : 4:25 PM PAGER/CONTACT #: [phone] [facility] BRIEF OP NOTon 10-21-2016 BRIEF OP NOT HNO ID: [id number] thor: Andreea (Donna) Shreyase: OtolaryngologyAuthor Type: ResidentType: Brief Op NoteFiled: 10/21/2016 4:05 PMNote Text:BRIEF OP NOTELOG ID: [id number]/Procedure Date: 10/21/2016Incision/Procedu re Start Time: 2:33 PMIncision Close/Procedure End Time: 3:31 PMSurgeon(s)/Proceduralis t(s) and [employer] Salesperson(s):Surgeon(s) and Role: * Mayco Gary Primary * Andreea Perez - Resident - Assisting * Lacy Ponce) Della Jones - ViridianaProcedure(s):Microd irect laryngoscopy with removal of foreign bodyAnesthesia: GeneralFindings:Overmedia lized right true vocal fold with bulging of the superior fold andinto the subglottisVertical height mismatchRestylane gel expressed from incision made in the true vocal foldEstimated Blood Loss: 1 mlsSpecimens: NoneComplications: NonePre-Op/Pre-Procedure Diagnosis: Dysphonia, unilateral vocal fold paresisPost-Op/Post-Proce dure Diagnosis: Same as preopSIGNATURE: Andreea Olivarez MD PATIENT NAME: iRta BagleyTE: October 21, 2016 : 3:34 PM PAGER/CONTACT #: [phone] [facility] OPERATIVE NOon 10-21-2016 OPERATIVE NO HNO ID: [id number] thor: Andreea PerezService: OtolaryngologyAuthor Type: ResidentType: Operative ReportFiled: 10/21/2016 7:50 PMNote Text:OPERATIVE/PROCEDURE REPORTLOG ID: [id number]/Procedure Date: 10/21/2016Incision/Procedu re Start Time: 2:33 PMIncision Close/Procedure End Time: 3:31 PMSurgeon(s)/Proceduralis t(s) and [employer] Salesperson(s):Surgeon(s) and Role: * Mayco Escobedo - Primary * Andreea Perez - Resident - Assisting * Lacy (Grady) Della Jones - ViridianaNo Additional StaffProcedure(s):Microdi rect laryngoscopy with removal of foreign bodyIndications:Ms. Rizvi is a 41 year old female who experienced right vocal foldparesis after a right partial thyroidectomy and underwent an OR basedRestylane injection and had worsening of her voice after this procedure.In the office, her right vocal fold had near-normal motion, and the rightfold was overinjected and medialized, distorting her vocal fold. Wediscussed removal of the injectable vs observation and after a discussionof risks, benefits and alternatives she agreed to proceed with operativeintervention to remove the injectable.Anesthesia: GeneralFindings:1. Difficult exposure with Dedo laryngoscope, and Slimline laryngoscopeexposure could only be obtained with Alexia anterior commissure scopewith difficulty2. Bulging of the right true vocal fold and subglottis with verticalheight mismatch3. Restylane gel expressed from incisions made in subglottis and truevocal foldProcedure Details:The patient was brought into the operating room and placed in a supineposition. A huddle was performed. After satisfactory general anesthesiawith a small endotracheal tube, the eyes and teeth were protected. Ofnote, the lower teeth were irregular posing a challenge to exposure. ADedo laryngoscope was introduced, however exposure was not able to beobtained. Next we tried a Slimline scope without success. Adequateexposure was obtained with a Alexia anterior-commissure scope and thiswas put into suspension on the patient's chest. The moreira richie wasintroduced with findings as listed above. Using a right-going scissors,and incision was made in the subglottis and restylane gel was suctionedout. Then a straight scissors was used to make an incision in the farlateral right true vocal fold, near the ventricle. A spatula was used toprobe into the paraglottic space which extruded residual Restylane thatwas then suctioned away. Two more puncture incisions were made along thelateral edge of the vocal fold to probe for further residual restylane.The vocal fold still appeared over medialized, so a horizontal incisionwas made along the medial and inferior edge of the left true vocal fold,just below the vibratory margin and this was probed with a spatula.Hemostasis was achieved with an epinephrine pledget. Topical lidocainewas sprayed onto the vocal folds, the laryngoscope was removed. Thepatient was awoken in the operating room and extubated and taken to therecovery room in satisfactory condition.Pre-Op/Pre-Proc edure Diagnosis: Right vocal fold paresis withovermedialization of the fold after injection laryngoplastyPost-Op/Post -Procedure Diagnosis: Same as preopEstimated Blood Loss: 1 mlsSpecimens: NoneImplantable Devices: NoneDrains: NoneComplications: NoneThe primary surgeon/proceduralist performed the procedure with assistance.Ford Palafoxated for Mayco Escobedo MD [facility] PT EDon 10-21-2016 PT ED HNO ID: [id number] thor: Fang (Rn) MARY Smithervice: (none)Author Type: Registered NurseType: Patient EducationFiled: 10/21/2016 5:49 PMNote Text:PATIENT EDUCATION TOPIC: PROCEDURE / SURGERY: Procedure/Surgery:PATIENT NAME: Rita RizviMRN: [id number] LOCATION: [place] [address]READINESS TO LEARNCOGNITIVE ABILITY: Alert and orientedMOTIVATION TO LEARN: EagerFAMILY SUPPORT: High - Very involved in pt careINSTRUCTION PROVIDED TO: Patient and family memberPATIENT LEARNS BEST BY: Multiple methodsFACTORS AFFECTING LEARNING: NonePHYSICAL LIMITATIONS AFFECTING LEARNING: NoneLEARNING RESPONSEDIAGNOSIS: ADULT: Well AdultPATIENT/FAMILY RESPONSE: Verbalizes understanding of: MEDICALREGIMEN-Importance of following prescribed medical regimenPOST-OPERATIVE INSTRUCTIONS-Correct actions to take to reducepostoperative complicationsPOST-PROCEDU RE INSTRUCTIONS-Correct actions to take to reduce postprocedure complicationsMETHOD OF INSTRUCTION: Written instruction - handoutsVerbal instructionFOLLOW-UP PLAN: Patient instructed to call with any further issuesFollow-up with Primary CareContact information given.INSTRUCTIONAL AIDS USED: NASUPPLEMENTAL MATERIAL PROVIDED TO PATIENT: NoneREFERRAL (RECOMMENDATION): NoneElectronically Signed By: Fang Smith RN [facility] 10-18-2016 [facility] Telephone (OTOLMN) BELKYSRITA OPLO ([id number]) 1975 [facility] Time Provider Department10/18/16 MAYCO ESCOBEDO During your visit today, we recorded the following information about you:Geovanni Abdifatah Psr 10/18/2016 4:17 PM SignedPatient called stating that she would like to speak with someone concerning herupcoming surgery. Would like to know about recovery time and if she'll be ableto talk after surgery. Best contact number [phone].Jeremiah Olivarez MD 10/18/2016 9:35 PM SignedSpoke with patient. She wanted to know if there would be voice rest and whather recovery would look like. I advised that she may be on voice rest for up to7 days depending on exactly what happens in surgery and it is routine forpatient undergoing this procedure to take up to 2 weeks off of work due tovoice restrictions. Will clarify specifics with Dr. Escobedo and call her backtomorrow.Andreea Olivarez, Rafat Escobedo MD 10/18/2016 10:37 PM SignedLet's plan on voice rest for 1-2 days with modified voice use for an additionalweek. I will give her a note for work as needed.Please let her knowNina Abi Aviles 10/19/2016 11:27 AM SignedCalled patient. Left voice mail to return our call. Shanelle Olivarez MD 10/19/2016 8:01 PM SignedRelayed message to patient.Han Palafox As of Date: 10/18/2016 Noted Allergy ReactionVANTIN (CEFPODOXIME) 09/22/2016 2 - RashDate Reviewed: Never ReviewedReason for Visit: Patient Question [5509]Prescriptions as of 10/18/2016 Sig: ELETRIPTAN HBR 40 MG TABLET Take 40 mg by mouth as needed*Problem List As Of Date: 10/18/2016(None) Status:Closed by SHANELLE DOMINGO MA on 10/19/16 Normal [facility] HOSPon 09-30-2016 HOSP Patient:Checo Rizvi N: Height:5' 6 (1.676 m)Weight:170 lb (77.111 kg)Outpatient Medications as of 10/21/16:eletriptan (RELPAX) 40 mg tabletAdmission/Clinic Administered Medications as of 10/21/16:lactated ringers infusionProblem List:No problem list on file for this patient.Allergies:Vantin [Cefpodoxime]Date Verified: 10/21/16Lab ValuesNo results within the last 30 days for the following basenames: K,HCTProgress Notes (OTOL MAIN):Geovanni Gardiner Psr 10/18/2016 4:17 PM SignedPatient called stating that she would like to speak with someone concerning herupcoming surgery. Would like to know about recovery time and if she'll be ableto talk after surgery. Best contact number [phone].Jeremiah Olivarez MD 10/18/2016 9:35 PM SignedSpoke with patient. She wanted to know if there would be voice rest and whather recovery would look like. I advised that she may be on voice rest for up to7 days depending on exactly what happens in surgery and it is routine forpatient undergoing this procedure to take up to 2 weeks off of work due to voicerestrictions. Will clarify specifics with Dr. Escobedo and call her backtomorrow.Rafat Palafox MD 10/18/2016 10:37 PM SignedLet's plan on voice rest for 1-2 days with modified voice use for an additionalweek. I will give her a note for work as needed.Please let her Jefry Domingo Ma 10/19/2016 11:27 AM SignedCalled patient. Left voice mail to return our call. Shanelle Olivarez MD 10/19/2016 8:01 PM SignedRelayed message to patient.SCARLET Palafoxrogaidee Notes (OTOL MAIN):Allison Albert Psr 10/01/2016 12:38 PM Signedleft message on patient home vm to inform her that Dr. Escobedo wants toreschedule her surgery date from 10/19 to 10/21/16 Normal [facility] Vital Signs Date Time Vital Sign Value Performing Clinician Faci lity 03-12-2024 15:22-0500 Body mass index (BMI) [Ratio] 31.73 kg/m2 Jaylin Villela DO Work Phone: [facility] 03-12-2024 15:22-0500 Body weight 89.18 kg Jaylin Villela DO Work Phone: [facility] 03-12-2024 15:22-0500 Diastolic blood pressure 84 mm[Hg] Christopher Manohar DO Work Phone: [facility] 03-12-2024 15:22-0500 Heart rate 106 /min Christopher Manohar DO Work Phone: [facility] 03-12-2024 15:22-0500 SaO2% (BldA) [Mass fraction] 97 % Christopher Manohar DO Work Phone: [facility] 03-12-2024 15:22-0500 Systolic blood pressure 136 mm[Hg] Christopher Manohar DO Work Phone: [facility] 02-07-2024 14:53-0400 Body height 167.64 cm DO Trever Kuns Work Phone: [facility] 02-07-2024 14:53-0400 Body mass index (BMI) [Ratio] 31.9 kg/m2 DO Trever Kuns Work Phone: [facility] 02-07-2024 14:53-0400 Body weight 89.81 kg DO Trever Kuns Work Phone: [facility] 02-07-2024 14:53-0400 Diastolic blood pressure 76 mm[Hg] DO Trever Kuns Work Phone: [facility] 02-07-2024 14:53-0400 Heart rate 86 /min DO Trever Kuns Work Phone: [facility] 02-07-2024 14:53-0400 Respiratory rate 16 /min DO Trever Kuns Work Phone: [facility] 02-07-2024 14:53-0400 SaO2% (BldA) [Mass fraction] 96 % DO Trever Kuns Work Phone: [facility] 02-07-2024 14:53-0400 Systolic blood pressure 110 mm[Hg] DO Trever Kuns Work Phone: [facility] 01-03-2024 15:01-0400 Body height 167.64 cm DO Trever Kuns Work Phone: [facility] 01-03-2024 15:01-0400 Body mass index (BMI) [Ratio] 31.6 kg/m2 DO Trever Kuns Work Phone: [facility] 01-03-2024 15:01-0400 Body weight 88.9 kg DO Trever Kuns Work Phone: [facility] 01-03-2024 15:01-0400 Diastolic blood pressure 82 mm[Hg] DO Trever Kuns Work Phone: [facility] 01-03-2024 15:01-0400 Heart rate 90 /min DO Trever Kuns Work Phone: [facility] 01-03-2024 15:01-0400 Respiratory rate 16 /min DO Trever Kuns Work Phone: [facility] 01-03-2024 15:01-0400 SaO2% (BldA) [Mass fraction] 98 % DO Trever Kuns Work Phone: [facility] 01-03-2024 15:01-0400 Systolic blood pressure 124 mm[Hg] DO Trever Kuns Work Phone: [facility] 12-13-2023 16:04-0400 Body height 167.64 cm DO Trever Kuns Work Phone: [facility] 12-13-2023 16:04-0400 Body mass index (BMI) [Ratio] 31.9 kg/m2 DO Trever Kuns Work Phone: [facility] 12-13-2023 16:04-0400 Body weight 89.81 kg DO Trever Kuns Work Phone: [facility] 12-13-2023 16:04-0400 Diastolic blood pressure 80 mm[Hg] DO Trever Kuns Work Phone: [facility] 12-13-2023 16:04-0400 Heart rate 88 /min DO Trever Kuns Work Phone: [facility] 12-13-2023 16:04-0400 Respiratory rate 16 /min DO Trever Kuns Work Phone: [facility] 12-13-2023 16:04-0400 SaO2% (BldA) [Mass fraction] 97 % DO Trever Kuns Work Phone: [facility] 12-13-2023 16:04-0400 Systolic blood pressure 110 mm[Hg] DO Trever Kuns Work Phone: [facility] 11-30-2023 16:13-0400 Body height 162.56 cm DO Trever Kuns Work Phone: [facility] 11-30-2023 16:13-0400 Body mass index (BMI) [Ratio] 33.6 kg/m2 DO Trever Kuns Work Phone: [facility] 11-30-2023 16:13-0400 Body temperature 98.6 [degF] DO Trever Kuns Work Phone: [facility] 11-30-2023 16:13-0400 Body weight 88.9 kg DO Trever Kuns Work Phone: [facility] 11-30-2023 16:13-0400 Diastolic blood pressure 80 mm[Hg] DO Trever Kuns Work Phone: [facility] 11-30-2023 16:13-0400 Heart rate 93 /min DO Trever Kuns Work Phone: [facility] 11-30-2023 16:13-0400 Respiratory rate 16 /min DO Trever Kuns Work Phone: [facility] 11-30-2023 16:13-0400 SaO2% (BldA) [Mass fraction] 97 % DO Trever Kuns Work Phone: [facility] 11-30-2023 16:13-0400 Systolic blood pressure 122 mm[Hg] DO Treverlinnea Velasquezs Work Phone: [facility] 01-10-2023 10:15-0400 Body height 162.56 cm Trever Kuns Other [facility] Other 01-10-2023 10:15-0400 Body mass index (BMI) [Ratio] 32.78 kg/m2 Trever Kuns Other [facility] Other 01-10-2023 10:15-0400 Body weight 86.64 kg Trever Kuns Other [facility] Other 01-10-2023 10:15-0400 Diastolic blood pressure 75 mm[Hg] Trever Kuns Other [facility] Other 01-10-2023 10:15-0400 Respiratory rate 18 /min Trever Kuns Other [facility] Other 01-10-2023 10:15-0400 SaO2% (BldA) [Mass fraction] 96 % Trever Kuns Other [facility] Other 01-10-2023 10:15-0400 Systolic blood pressure 115 mm[Hg] Trever Kuns Other [facility] Other 09-22-2022 15:15-0400 Body height 162.56 cm Trever Kuns Other [facility] Other 09-22-2022 15:15-0400 Body mass index (BMI) [Ratio] 33.81 kg/m2 Trever Kuns Other [facility] Other 09-22-2022 15:15-0400 Body weight 89.36 kg Trever Kuns Other [facility] Other 09-22-2022 15:15-0400 Diastolic blood pressure 70 mm[Hg] Trever Kuns Other [facility] Other 09-22-2022 15:15-0400 Respiratory rate 16 /min Trever Kuns Other [facility] Other 09-22-2022 15:15-0400 SaO2% (BldA) [Mass fraction] 98 % Trever Kuns Other [facility] Other 09-22-2022 15:15-0400 Systolic blood pressure 110 mm[Hg] Trever Kuns Other [facility] Other 08-18-2022 15:30-0400 Body height 162.56 cm Trever Kuns Other [facility] Other 08-18-2022 15:30-0400 Body mass index (BMI) [Ratio] 33.98 kg/m2 Trever Kuns Other [facility] Other 08-18-2022 15:30-0400 Body weight 89.81 kg Trever Kuns Other [facility] Other 08-18-2022 15:30-0400 Diastolic blood pressure 86 mm[Hg] Trever Kuns Other [facility] Other 08-18-2022 15:30-0400 Respiratory rate 18 /min Trever Kuns Other [facility] Other 08-18-2022 15:30-0400 SaO2% (BldA) [Mass fraction] 97 % Trever Kuns Other [facility] Other 08-18-2022 15:30-0400 Systolic blood pressure 122 mm[Hg] Trever Kuns Other [facility] Other 12-09-2021 16:45-0400 Body height 162.56 cm Trever Kuns Other [facility] Other 12-09-2021 16:45-0400 Body mass index (BMI) [Ratio] 30.72 kg/m2 Trever Kuns Other [facility] Other 12-09-2021 16:45-0400 Body weight 81.19 kg Trever Kuns Other [facility] Other 12-09-2021 16:45-0400 Diastolic blood pressure 72 mm[Hg] Trever Kuns Other [facility] Other 12-09-2021 16:45-0400 Respiratory rate 16 /min Trever Kuns Other [facility] Other 12-09-2021 16:45-0400 SaO2% (BldA) [Mass fraction] 98 % Trever Kuns Other [facility] Other 12-09-2021 16:45-0400 Systolic blood pressure 104 mm[Hg] Trever Kuns Other [facility] Other 10-29-2021 11:00-0400 Body height 162.56 cm Trevre Kuns Other [facility] Other 10-29-2021 11:00-0400 Body mass index (BMI) [Ratio] 30.89 kg/m2 Treverlinnea Limon Other [facility] Other 10-29-2021 11:00-0400 Body weight 81.65 kg Treverlinnea Velasquezs Other [facility] Other 10-29-2021 11:00-0400 Diastolic blood pressure 68 mm[Hg] Treverlinnea Limon Other [facility] Other 10-29-2021 11:00-0400 Respiratory rate 18 /min Trever Limon Other [facility] Other 10-29-2021 11:00-0400 SaO2% (BldA) [Mass fraction] 99 % Treverlinnea Limon Other [facility] Other 10-29-2021 11:00-0400 Systolic blood pressure 102 mm[Hg] Treverlinnea Velasquezs Other [facility] Other 04-21-2021 15:45-0500 Body height 162.56 cm Amy Weems Other [facility] Other 04-21-2021 15:45-0500 Body mass index (BMI) [Ratio] 29.35 kg/m2 Amy Weems Other [facility] Other 04-21-2021 15:45-0500 Body temperature 99.3 [degF] Amy Weems Other [facility] Other 04-21-2021 15:45-0500 Body weight 77.57 kg Amy Weems Other [facility] Other 04-21-2021 15:45-0500 SaO2% (BldA) [Mass fraction] 98 % Amy Weems Other [facility] Other Encounters Encounter Date Encounter Type Care Provider Facility Start: 03-12-2024 End: 03-12-2024 Office outpatient visit 25 minutes Christdia Manohar DO Work Phone: [facility] [place] Comment on above: Memory loss (Primary Dx); DEWEY (obstructive sleep apnea) Start: 03-12-2024 End: 03-12-2024 ambulatory CHRISTOPHER MANOHAR Not Available Start: 03-12-2024 End: 03-12-2024 Bamboo flowsheet Christopher Manohar DO Work Phone: [facility] Start: 03-12-2024 End: 03-12-2024 Bamboo flowsheet Christopher Manohar DO Work Phone: [facility] Start: 02-23-2024 End: 02-23-2024 Patient encounter procedure Yoni Blanchard PhD Work Phone: [facility] Comment on above: Memory loss (Primary Dx); ADHD (attention deficit hyperactivity disorder), inattentive type (CMS/HCC); Word finding difficulty; DEWEY (obstructive sleep apnea); Severe episode of recurrent major depressive disorder, without psychotic features (HCC) (CMS/HCC); Generalized anxiety disorder (CMS/HCC) Start: 02-23-2024 End: 02-23-2024 ambulatory CHRISTOPHER MANOHAR Not Available Start: 02-07-2024 Non-patient / Non-visit DO Pepper Limon Work Phone: [facility] Cardiology Work Phone: Start: 02-07-2024 End: 02-07-2024 Patient encounter procedure DO Trever Limon Work Phone: [facility] [place] Work Phone: Start: 02-07-2024 End: 02-07-2024 Patient encounter procedure DO Trever Kuns Work Phone: [facility] Work Phone: Start: 02-07-2024 End: 02-07-2024 ambulatory DO Trever Kuns Work Phone: [facility] Work Phone: Start: 02-06-2024 End: 02-06-2024 Patient encounter procedure Yoni Blanchard PhD Work Phone: [facility] Comment on above: Memory loss (Primary Dx); Concentration deficit; Word finding difficulty; DEWEY (obstructive sleep apnea); Depression, unspecified depression type (CMS/HCC); Stress Start: 02-06-2024 End: 02-06-2024 ambulatory YONI BLANCHARD Not Available Start: 02-06-2024 End: 02-06-2024 Bamboo flowsheet Yoni Blanchard PhD Work Phone: [facility] Start: 02-06-2024 End: 02-06-2024 Bamboo flowsheet Yoni Blanchard PhD Work Phone: [facility] Start: 01-04-2024 End: 01-04-2024 ambulatory JAYLIN VILLELA Not Available Start: 01-03-2024 End: 01-03-2024 ambulatory DO Trever Kuns Work Phone: [facility] Work Phone: Start: 01-03-2024 Non-patient / Non-visit DO Pepper tt Kuns Work Phone: [facility] Work Phone: Start: 01-03-2024 End: 01-03-2024 Encounter for general adult medical examination without abnormal findings DO Trever Kuns Work Phone: [facility] Start: 01-03-2024 End: 01-03-2024 Patient encounter procedure DO Trever Kuns Work Phone: [facility] [place] Work Phone: Start: 12-27-2023 End: 12-27-2023 Patient encounter procedure DO Trever Kuns Work Phone: [facility] [place] Work Phone: Start: 12-27-2023 End: 12-27-2023 ambulatory DO Trever Kuns Work Phone: [facility] Work Phone: Start: 12-22-2023 End: 12-22-2023 Patient encounter procedure DO Trever Kuns Work Phone: [facility] [place] Work Phone: Start: 12-22-2023 End: 12-22-2023 ambulatory DO Trever Kuns Work Phone: [facility] Work Phone: Start: 12-22-2023 Encounter for genera l adult medical examination without abnormal findings Trever Limon [facility] Start: 12-14-2023 Patient encounter status DO Br ett Kuns Work Phone: [facility] Start: 12-13-2023 End: 12-13-2023 Patient encounter procedure DO Trever Kuns Work Phone: [facility] [place] Work Phone: Start: 11-30-2023 End: 11-30-2023 Patient encounter procedure DO Trever Kuns [facility] [place] Work Phone: Start: 11-30-2023 End: 11-30-2023 ambulatory Trever Kuns [facility] Work Phone: Start: 11-30-2023 End: 11-30-2023 Departed Referred DO Trever Kuns Work Phone: [facility] [place] Work Phone: Start: 09-13-2023 End: 09-13-2023 Patient encounter procedure DO Trever Kuns Work Phone: [facility] Work Phone: Start: 03-31-2023 End: 03-31-2023 ambulatory ALEJANDRO Macy [facility]ISCI Not Available Start: 01-17-2023 End: 01-17-2023 ambulatory DO Trever Kuns Work Phone: [facility] Work Phone: Start: 01-17-2023 End: 01-17-2023 Departed Referred DO Trever Kuns Work Phone: [facility] [place] Work Phone: Start: 01-10-2023 Office outpatient vi sit 25 minutes Trever Kuns [facility] Start: 01-10-2023 Telephone encounter Trever Kuns [facility] Start: 01-10-2023 End: 01-10-2023 ambulatory DO Trever Kuns Work Phone: [facility] Other Start: 01-10-2023 End: 01-10-2023 Patient encounter procedure DO Trever Kuns Work Phone: [facility] [place] Work Phone: Start: 12-21-2022 End: 12-21-2022 ambulatory Trever Kuns Other [facility] Other Start: 12-21-2022 Telephone encounter Trever Kuns [facility] [place] Start: 12-16-2022 End: 12-16-2022 ambulatory Trever Kuns Other [facility] Other Start: 12-16-2022 Telephone encounter Trever Kuns [facility] Start: 11-30-2022 End: 11-30-2022 ambulatory Trever Kuns Other [facility] Other Start: 11-30-2022 Telephone encounter Trever Kuns [facility] [place] Start: 11-26-2022 End: 11-26-2022 ambulatory Trever Kuns Other [facility] Other Start: 11-26-2022 Telephone encounter Trever Kuns [facility] [place] Start: 09-22-2022 End: 09-22-2022 ambulatory Trever Kuns Other [facility] Other Start: 09-22-2022 Office outpatient vi sit 25 minutes Trever Kuns [facility] [place] Start: 08-18-2022 End: 08-18-2022 ambulatory Trever Kuns Other [facility] Other Start: 08-18-2022 Office outpatient vi sit 25 minutes Trever Kuns [facility] [place] Start: 06-28-2022 End: 06-28-2022 ambulatory Trever Kuns Other [facility] Other Start: 06-28-2022 Telephone encounter Trever Kuns [facility] [place] Start: 04-13-2022 End: 04-13-2022 ambulatory Trever Kuns Other [facility] Other Start: 04-13-2022 Telephone encounter Trever Kuns [facility] [place] Start: 02-02-2022 End: 02-02-2022 ambulatory Trever Kuns Other [facility] Other Start: 02-02-2022 Telephone encounter Trever Kuns [facility] [place] Start: 12-28-2021 End: 12-28-2021 ambulatory Trever Kuns Other [facility] Other Start: 12-28-2021 Telephone encounter Trever Kuns [facility] [place] Start: 12-09-2021 End: 12-09-2021 ambulatory Trever Kuns Other [facility] Other Start: 12-09-2021 Office outpatient vi sit 25 minutes Trever Kuns [facility] [place] Start: 12-09-2021 Telephone encounter Trever Kuns [facility] [place] Start: 11-30-2021 End: 11-30-2021 ambulatory Trever Kuns Other [facility] Other Start: 11-30-2021 Telephone encounter Trever Kuns [facility] [place] Start: 10-29-2021 End: 10-29-2021 ambulatory Trever Kuns Other [facility] Other Start: 10-29-2021 Office outpatient vi sit 25 minutes Trever Kuns [facility] Start: 10-29-2021 End: 10-29-2021 Patient encounter procedure DO Trever Kuns Work Phone: [facility] [place] Start: 10-21-2021 End: 10-21-2021 ambulatory Trever Kuns Other [facility] Other Start: 10-21-2021 Telephone encounter Trever Kuns [facility] [place] Start: 05-12-2021 End: 05-12-2021 ambulatory Trever Kuns Other [facility] Other Start: 05-12-2021 Telephone encounter Trever Kuns [facility] Start: 05-05-2021 End: 05-05-2021 ambulatory Trever Kuns Other [facility] Other Start: 05-05-2021 Telephone encounter Trever Limon [facility] Start: 05-04-2021 End: 05-04-2021 ambulatory Trever Limon Other [facility] Other Start: 05-04-2021 Nursing evaluation o f patient and report Trever Limon [facility] Start: 04-21-2021 End: 04-21-2021 ambulatory Amy Weems Other [facility] Other Start: 04-21-2021 Office outpatient vi sit 15 minutes Amy Weems [facility] Start: 08-04-2017 End: 08-04-2017 Ambulatory MAYCO ESCOBEDO [facility] Start: 08-03-2017 End: 08-03-2017 Ambulatory MAYCO GREGG [facility] Start: 08-02-2017 Ambulatory MAYCO ESCOBEDO [facility] Start: 07-29-2017 End: 08-08-2017 Ambulatory MONIQUE AHANN [facility] Start: 03-18-2017 End: 03-18-2017 Ambulatory CONGREGATION NASBella [facility] Start: 03-10-2017 End: 03-10-2017 Ambulatory MAYCO TAMAYOSON [facility] Start: 11-08-2016 End: 11-08-2016 Ambulatory MAYCO ESCOBEDO [facility] Start: 10-21-2016 End: 10-21-2016 Ambulatory MAYCO ESCOBEDO [facility] Procedures Date Procedure Procedure Detail Performing Clinician Start: 02-07-2024 Screening mammograph y of bilateral breasts DO [employer] Work Phone: Start: 12-27-2023 CT of head with contrast DO [employer] Work Phone: Start: 11-30-2023 Investigation of tra nsfusion reaction DO Trever Teez.bys Work Phone: Electrocardiogram Trever Kuns Other Plan of Treatment Date Care Activity Detail Author Start: 03-12-2024 End: 03-12-2024 Patient encounter procedure [facility] Comment on above: Arrived Start: 02-23-2024 End: 02-23-2024 Patient encounter procedure 02/23/2024 9:00 AM EST Office Visit [facility] [address] [id number] [facility] Start: 02-06-2024 End: 02-06-2024 Patient encounter procedure 02/06/2024 4:00 PM EDT Office Visit [facility] [address] [phone] Yoni Blanchard, PhD [address] [place] [address] [facility] Comment on above: Memory loss Start: 12-22-2023 [facility] Start: 12-13-2023 Patient referral [facility] Work Phone: Start: 11-30-2023 Microscopic observat ion [Identifier] in Unspecified specimen by Gram stain [facility] Start: 11-30-2023 [facility] Start: 01-17-2023 Bacteria identified in Urine by Culture [facility] Bacteria identified in Unspecified specimen by Aerobe culture [facility] Bacteria identified in Unspecified specimen by Anaerobe culture [facility] Cardiovascular stres s testing [facility] CT Head WO and W con trast IV [facility] Estradiol (E2) [Mass/volume] in Serum or Plasma [facility] Work Phone: Glucose measurement estimated from glycated hemoglobin [facility] MG Breast - bilatera l Screening [facility] Patient referral [facility] Work Phone: US Heart Transthoracic [facility] Immunizations Immunization Date Immunization Notes Care Provider Fa cility NEGATED: Highlighted row has not occurred!11-27-2018 influenza, seasonal, injectable Patient Objection Calley Faustina Other [facility] Payers Date Payer Category Payer Self-pay [id number] 2023 Private Health Insurance [facility] [id number] 2022 Unknown [id number] 2012 Unknown [id number] 1977 Unknown [id number] [id number]. 2.1259 1977 Unknown [id number] [id number]. 2.1259 1977 Unknown [id number] [id number]. 2.1259 1977 Unknown [id number] [id number]. 2.1259 1977 Unknown [id number]. 2.1259 Self-pay Self Pay [employer] 2 [id number] Self-pay Self Pay [employer] M [id number] Unknown [id number] [id number]. 2.531 Unknown [id number] [id number]. 2.531 Unknown [id number] [id number]. 2.531 Unknown [id number] [id number]. 2.531 Unknown [id number]. 2.531 Social History Date Type Detail Facility Unknown if ever smoked [facility] Other Start: 03-31-2023 End: 01-04-2024 Sex Assigned At [facility] Start: 11-08-2018 End: 02-07-2024 Tobacco smoking status [facility] Ex-smoker (finding) [facility] Start: 1975 Sex Assigned At Female F [facility] Start: 12-23-2023 Tobacco smoking status [facility] Occasional tobacco smoker [facility] History of tobacco use Cigarette Smoker [facility] Start: 12-23-2023 Tobacco use and exposure Smokeless tobacco non-user [facility] Start: 01-04-2024 Alcoholic beverage intake Current drinker of alcohol (finding) [facility] Start: 03-31-2023 End: 01-04-2024 History of Social function [facility] How often to you hav e a drink containing alcohol? Monthly or less [facility] How many standard drinks containing alcohol do you have on a typical day? 1 or 2 [facility] How often do you hav e 6 or more drinks on 1 occasion? Never [facility] Start: 01-18-2023 Alcohol Comment caffeine intak e: 3-4 cups per day [facility] Start: 1975 Sex assigned at Not on file [facility] NEGATED: Highlighted row [facility] Medical Equipment Procedure Code Equipment Code Equipment Origin al Text Equipment Identifier Dates Colporrhaphy, anteroposterior, for repair of cystocele, rectocele or enterocele ADVANTAGE FIT TRANSVAGINAL FDA Start: 11-08-2018 Colporrhaphy, anteroposterior, for repair of cystocele, rectocele or enterocele ADVANTAGE FIT TRANSVAGINAL FDA Start: 11-08-2018 Colporrhaphy, anteroposterior, for repair of cystocele, rectocele or enterocele ADVANTAGE FIT TRANSVAGINAL FDA Start: 11-08-2018 Colporrhaphy, anteroposterior, for repair of cystocele, rectocele or enterocele ADVANTAGE FIT TRANSVAGINAL FDA Start: 11-08-2018 Colporrhaphy, anteroposterior, for repair of cystocele, rectocele or enterocele ADVANTAGE FIT TRANSVAGINAL FDA Start: 11-08-2018 Colporrhaphy, anteroposterior, for repair of cystocele, rectocele or enterocele ADVANTAGE FIT TRANSVAGINAL FDA Start: 11-08-2018 Colporrhaphy, anteroposterior, for repair of cystocele, rectocele or enterocele ADVANTAGE FIT TRANSVAGINAL FDA Start: 11-08-2018 Colporrhaphy, anteroposterior, for repair of cystocele, rectocele or enterocele ADVANTAGE FIT TRANSVAGINAL FDA Start: 11-08-2018 Clinical Notes 02-24-2015 to 02-23-2024 Yoni Blanchard, PhD - 02/23/2024 9:00 AM Branden Blanchard, PhD - 02/06/2024 4:00 PM EDT Note Date & Type Note Facility 02-23-2024 History of Presen t illness Narrative Images from the original note were not included. Neuropsychology Yoni Blanchard, PhD NEUROPSYCHOLOGICAL EVALUATION Rita Jason is a 48 y.o. female referred for neuropsychological evaluation to assist with facilitating and informing medical differential diagnosis and clinical decision-making. The following information was obtained during an interview with the patient, as well as review of available records. PRESENTING PROBLEM: Forgetting names of familiar people, forgetting simple mathematics, word-finding difficulty, and simple daily forgetfulness. Also struggles with attention/concentration, short attention span, and distractibility. All the aforementioned struggles have been occurring at baseline but worsening lately. Feels she has always struggled with ADHD. Son has borderline ADHD and nephew possibly as well. Aside from the above, remains independent in ADLs, housework, finances, medication, and driving. Minimal physical activity. Socially more homebody at baseline. Poor sleep quality with snoring. Constantly feels tired. PSG has been scheduled. Pain complaints include chronic migraines which are overall well-managed currently. Neurological history includes a few concussions from horse injuries in the past. Labs reported as normal. 12/27/[address] unremarkable. MoCA . Relevant history includes ALS (mother). Psychiatric history includes situational depression and worry/stress. Meets with a therapist. Denied any history of alcohol/substance abuse or smoking. [place] language [place]. Completed high school education. 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 Resides with of 7 years as well as one of their children. Had another child as well who unfortunately has . MEDICAL HISTORY/MEDICATION: MEDICATIONS: Current Outpatient Medications Medication Instructions Levonorgestrel (Liletta, 52 MG,) 20.1 MCG/DAY intrauterine device Intrauterine oxybutynin XL (DITROPAN-XL) 10 mg, Oral, Daily, Do not crush, chew, or split. venlafaxine (EFFEXOR) 37.5 mg, Oral, Daily, Take with food. ASSESSMENT: Presented to appointment on time, alert, and Ox3. Rapport easily established. Good eye contact. Socially appropriate during conversation and testing. Hearing adequate for current purposes. Ambulated independently. Purpose for current evaluation explained and patient agreed to participate. Performance validity testing consistent with good effort. Vision/Visuoconstruction: Binocular near-point visual acuity 20/20. Visual randhawa full to confrontation. Nonverbal abstract reasoning 90th %ile. Copy of a complex geometric design >16th %ile. Motor/Speed of Processing: Right-handed. Manager [employer] Investigations strength 50th %ile, bilaterally. Speeded graphomotor transcoding 69th %ile. Attention/Working Memory: Auditory attention/working memory 86th %ile (7 digits forward, 7 digits backward, 6 digits during sequencing). Speeded visual scanning/attention 34th %ile. Speeded visual divided attention 58th %ile. Speech/Language: Expressive speech fluent and absent of paraphasic errors. Comprehension adequate for current purposes. Single-word reading 37th %ile. Generative naming to phonemic cues 66th %ile, 5th %ile to semantic cues. Confrontation naming 7th %ile. Verbal abstract reasoning 82nd %ile. Learning and Memory: Learning of a word list 90th %ile (4-41-32-14-15), delayed recall 69th %ile. Recognition discriminability 93rd %ile. Forced-choice 16/16. Immediate recall for a variety of geometric figures 98th %ile, delayed 93rd %ile. Recognition >75th %ile. Executive Functioning: Novel problem-solving and cognitive flexibility >16th %ile, 5/6 categories completed in 64 sorts. Responding absent of significant perseveration. Emotional Functioning: Severe depression and moderate anxiety. Denied any thoughts of self-harm. Elevated ADHD symptom report. FINDINGS AND RECOMMENDATIONS: CONCLUSIONS: 1. Estimated average verbal and above average visual pre-morbid intellectual functioning. 2. Preserved visual acuity without signs of visual field cut or neglect. 3. Preserved bilateral gross motor function. 4. Severe depression and moderate anxiety. 5. Elevated ADHD symptom report. OPINION: Current neuropsychological evaluation reveals well preserved cognition and memory. Overall presentation and history are most consistent with ADHD, inattentive type. Severe depression and moderate anxiety, along with poor sleep and possible underlying DEWEY are likely exacerbating the distractibility and interfering with optimal memory and cognitive efficiency. RECOMMENDATIONS: Results and recommendations forwarded to treating physician for review during their upcoming appointment. Patient encouraged to contact this office with any additional questions. No activity restriction from a cognitive standpoint. More aggressive management of the depression and anxiety. Recommend combination of psychopharmacologic and psychotherapeutic intervention for optimal prognosis. Treating physician may wish to initiate psychostimulant vs. nonpsychostimulant trial for improved attention/concentration and cognitive efficiency. Nonmedication routes of treatment may include functional nutrition management through [facility] or individual psychotherapy to develop behavioral strategies. Encouraged to follow through with scheduled sleep study and associated recommendations. Behavioral strategies for improved attention and memory: Regularly and frequently review information that must be remembered. Link new information in as many ways as possible to already known information. This strategy creates several avenues for remembering the information later. Utilize external memory sources such as lists, date books, calendars, and pocket-size recorders for information that must be remembered. A cellphone is a useful tool in consolidating all this information into one source. Active listening, such as repeating and summarizing information back to presenter when learning important information for future recall may be beneficial as opposed to simply passive listening. Establish a consistent structured routine. Establish regular physical activity for stress relief, improved cognitive efficiency, and better sleep. No need for neuropsychological re-evaluation. Thank you for allowing me to participate in the care of this individual. Please contact me with any questions at [phone]. documented in this encounter [facility] 02-06-2024 History of Presen t illness Narrative Images from the original note were not included. Yoni Blanchard, PhD NEUROBEHAVIORAL STATUS EXAMINATION Rita Jason is a 48 y.o. female referred for neuropsychological evaluation to assist with facilitating and informing medical differential diagnosis and clinical decision-making. The following information was obtained during an interview with the patient, as well as review of available records. PRESENTING PROBLEM AND HISTORY Forgetting names of familiar people, forgetting simple mathematics, word-finding difficulty, and simple daily forgetfulness. Also struggles with attention/concentration, short attention span, and distractibility. All the aforementioned struggles have been occurring at baseline but worsening lately. Feels she has always struggled with ADHD. Son has borderline ADHD and nephew possibly as well. Aside from the above, remains independent in ADLs, housework, finances, medication, and driving. Minimal physical activity. Socially more homebody at baseline. Poor sleep quality with snoring. Constantly feels tired. PSG has been scheduled. Pain complaints include chronic migraines which are overall well-managed currently. Neurological history includes a few concussions from horse injuries in the past. Labs reported as normal. 12/27/[address] unremarkable. MoCA . Relevant history includes ALS (mother). Psychiatric history include situational depression and worry/stress. Need to the therapist for this. Denied any history of alcohol/substance abuse or smoking. [place] language [place]ovan. Completed high school education. 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 Resides with of seven years as well as one of their children. Had another child as well who unfortunately has . MEDICAL HISTORY/MEDICATION: Past Medical History: Diagnosis Date Cardiac arrhythmia Cellulitis COVID Current smoker Cyst of thyroid determined by ultrasound (CMS/HCC) Thyroid US 05/28/16 Nodules & Cysts revealed Cystocele with rectocele Delivery of 2005 LVB 8# 2oz Depression (CMS/HCC) Fatigue H/O chest x-ray 02/24/2015 Hepatitis 1993 with mono Herpes History of medical problems Abscess in throat; drained History of mononucleosis With hepatitis History of polydactyly Excision of extra thumb Hormone imbalance LGSIL Pap smear of vagina 2004 when Menstrual migraine, not intractable, without status migrainosus (CMS/HCC) Migraine (CMS/HCC) Migraines (CMS/HCC) Somatic dysfunction of rib cage region Somatic dysfunction of spine, thoracic MARIA EUGENIA (stress urinary incontinence, female) Thyroid nodule (CMS/HCC) Trigger finger Urinary urgency MEDICATIONS: Current Outpatient Medications Medication Instructions Levonorgestrel (Liletta, 52 MG,) 20.1 MCG/DAY intrauterine device Intrauterine oxybutynin XL (DITROPAN-XL) 10 mg, Oral, Daily, Do not crush, chew, or split. venlafaxine (EFFEXOR) 37.5 mg, Oral, Daily, Take with food. INITIAL IMPRESSION AND PLAN: Concentration deficit, memory loss, word-finding difficulty, DEWEY, and depression and worry/stress: The patient will be scheduled for neuropsychological assessment, which will include tests for memory, reasoning, language, problem-solving, attention, and mood. Thank you for allowing me to participate in the care of this individual. Please contact me with any questions at [phone]. documented in this encounter [facility] 11-30-2023 Evaluation note Authored November 30, 2023 4: 37pm The above note written by DAE Peraza acting as human recorder, note dictated by Dr. Trever Limon. [facility] Work Phone: 1(690) 424-702808-21-2024 Evaluation note* Author Leslie Daniels [facility] Authored November 30, 2023 4: 37pm The above note written by DAE Peraza acting as human recorder, note dictated by Dr. Trever Limon. Author Debby Christine [facility] Authored February 07, 2024 3 :14pm The above note written by Sara Christine LPN, acting as human recorder, note dictated by Dr. Trever Limon. [facility] Work Phone: 1(821) 317-428210-02-2023 Evaluation note* Encounter Date Diagnosis Assessment Notes Treatment Notes Treatment Clinical Notes Jan, Chest pain (ICD-10 - R07.9) In house EKG performed and reviewed in office today. She does have pain in her chest and radiates to her back. She does notice occasional palpitations and feels as if her heart is beating hard. I strongly suggest she proceed to the hospital to get the above ordered testing and if anything is positive she needs to go to the ER otherwise if negative, she needs to get the stress test and echocardiogram to further evaluate. Patient voiced understanding. Blood work ordered as stat with a note to call my cell phone with results. Jan, SOB (shortness of breath) (ICD-10 - R06.02) Patient is audibly short of breath today during examination. Her in house EKG does not make me highly suspicious of an acute cardiac event though due to this persisting, she was strongly encouraged to go to get the above testing done. If anything is positive, she will go to the ER immediately and if not, she will proceed with stress test and echocardiogram. Patient is in agreement and voiced understanding. Jan, Palpitations (ICD-10 - R00.2) Patient describes having a heavy beating sensation in her chest along with pain in her chest and back. I did weight the options vs me ordering cardiac testing or her proceeding to the ER. She is trying to avoid the ER cost though will proceed immediately if this were to happen again as she denied being symptomatic today other than pain with a deep breath. I did order the above cardiac testing to further evaluate and she was given instructions for follow up. Patient voiced understanding. Jan, Thyroid nodule (ICD-10 - E04.1) Blood work ordered to update. Jan, Hyperlipidemia (ICD-10 - E78.5) Blood work ordered to update. Jan, Fatigue, unspecified type (ICD-10 - R53.83) Patient voices being fatigued recently, due to her current symptoms I suggest she get the above cardiac testing to rule out abnormalities. [facility] Other 08-18-2023 Evaluation note* Encounter Date Diagnosis Assessment Notes Treatment Notes Treatment Clinical Notes Nov, COVID (ICD-10 - U07.1) [facility] Other 06-14-2023 Evaluation note* Encounter Date Diagnosis Assessment Notes Treatment Notes Treatment Clinical Notes Sep, Anxiety with depression (ICD-10 - F41.8) Pt has been getting nausea with Trintellix, and noticing any improvement in her mood yet. I advised she can either increase her dosage of Trintellix, or switch to another medication. She would like to try a different medication, therefore I did recommend Effexor. Risks and benefits of this medication discussed, and dosing instructions provided. We will continue to monitor. 14 Sep, 2022 Migraine (ICD-10 - G43.909) Pt did have the most relief from Aimovig, but it was too expensive for her. She reports she has been getting migraines only one day a month typically; either the day before her menses or the day of. She is to continue the above medications, and we will continue to monitor. [facility] Other 05-10-2023 Evaluation note* Encounter Date Diagnosis Assessment Notes Treatment Notes Treatment Clinical Notes August, Itching (ICD-10 - L29.9) Above medication provided to see if this helps with her itching. August, Anxiety with depression (ICD-10 - F41.8) Patient admits to being very irritable and quick to anger recently. She did become emotional discussing this today. Due to her trying and failing both celexa recently and effexor in the past, samples provided for Trintellix for a month. If this is beneficial for her, we will submit a prescription for insurance coverage. [facility] Other 01-03-2023 Evaluation note* Encounter Date Diagnosis Assessment Notes Treatment Notes Treatment Clinical Notes Apr, Moodiness (ICD-10 - R45.89) [facility] Other 08-31-2022 Evaluation note* Encounter Date Diagnosis Assessment Notes Treatment Notes Treatment Clinical Notes Nov, Moodiness (ICD-10 - R45.89) [facility] Other 08-31-2022 Evaluation note* Encounter Date Diagnosis Assessment Notes Treatment Notes Treatment Clinical Notes Nov, Moodiness (ICD-10 - R45.89) Patient reports not noticing any improvement with the Celexa 10mg therefore discussed increasing this to 20mg before trying any other options. If needed, we will discuss Trintellix when she returns. She is still very stressed out dealing with the new diagnosis of ALS with her mom. She was agreeable. Prescription provided. Nov, Migraine (ICD-10 - G43.909) Patient continues to wake up with daily headaches. She has tried Aimovig in the past that worked very well for her but had an issue picking this up from the pharmacy despite having a PA approval. She does take Excedrin migraine daily and Relpax as often as she can due to the frequency of her headaches developing to migraines at least 2-3 times per month. Patient has tried Effexor and that caused memory loss, Imitrex and Nurtec were ineffective. I did suggest we try again with the Aimovig as this was very effective for her. She is agreeable. Medication e-scribed. [facility] Other 08-22-2022 Evaluation note* Encounter Date Diagnosis Assessment Notes Treatment Notes Treatment Clinical Notes Nov, Moodiness (ICD-10 - R45.89) [facility] Other 07-21-2022 Evaluation note* Encounter Date Diagnosis Assessment Notes Treatment Notes Treatment Clinical Notes Oct, Moodiness (ICD-10 - R45.89) The patient states her emotions are up and down, cries all the time , becomes irritable and aguil[place], states her moods are now starting to have an affect on other members of her family. The patient has been under new stress/anxiety in her life in regards to her mothers health condition. I suggest a low dose medication that may be effective due to depressive symptoms . Positive and negative side effects reviewed , all questions were answered. The patient is in agreeement. Blood work is pending results, we will review when available. Oct, Fatigue, unspecified type (ICD-10 - R53.83) Oct, Migraine (ICD-10 - G43.909) The patient states she wakes up daily with a headache that resolves with Excedrin she is no longer taking Amovig due to the cost. [facility] Other 07-13-2022 Evaluation note* Encounter Date Diagnosis Assessment Notes Treatment Notes Treatment Clinical Notes Oct, Hormone imbalance (ICD-10 - E34.9) Oct, Fatigue (ICD-10 - R53.83) Oct, Irritability (ICD-10 - R45.4) Oct, Heart palpitations (ICD-10 - R00.2) Oct, Mood swing (ICD-10 - R45.86) Oct, Migraine (ICD-10 - G43.909) Oct, Hyperlipidemia (ICD-10 - E78.5) Oct, Thyroid nodule (ICD-10 - E04.1) Oct, Anemia, unspecified type (ICD-10 - D64.9) [facility] Other 01-24-2022 Evaluation note* Encounter Date Diagnosis Assessment Notes Treatment Notes Treatment Clinical Notes Apr, Stuffy nose (ICD-10 - R09.81) Apr, Migraine (ICD-10 - G43.909) Due to Covid positive, unable to bring patient into office. Toradol 30 mg IM Right Deltoid: Toradol 30 mg IM Left Deltoid/ [employer] Apr, Nausea (ICD-10 - R11.0) Apr, COVID-19 (ICD-10 - U07.1) reviewed quarantine guidelines with patient and Rx have been sent to pharmacy per Dr. MCGUIRE orders/ [facility] Other 11-16-2015 History general Narrative - Reported* Type Description Date Medical History 02/24/15 Chest x-ray Medical History 02/24/15 gallbladder ultrasound Medical History Current Smoker Medical History Works at [employer] Medical History Mammogram ordered 06/12/16 Medical History Thyroid US 05/28/16 Nodules & Cys ts revealed Medical History 06/17/16 Mammogram Medical History A&P repair w/ Dr. Bettencourt 11/08/18 Surgical History appendectomy Surgical History T & A Surgical History trigger finger release Surgical History C section Surgical History 11/08/18 Cystocele Rectocele Hospitalization History SEE ABOVE [facility] Other Evaluation noteNo InformationNortAxial Exchange Other Evaluation noteNortAxial Exchange Other Evaluation noteNo assessment information available [facility] Work Phone: Evaluation note* Diagnosis Memory loss- Primary Concentration deficit Word finding difficulty DEWEY (obstructive sleep apnea) Obstructive sleep apnea (adult) (pediatric) Depression, unspecified depression type (CMS/HCC) Stress Other psychological or physical stress, not elsewhere classified documented in this encounter [facility] HealthcareEvaluation note* Diagnosis Memory loss- Primary ADHD (attention deficit hyperactivity disorder), inattentive type (CMS/HCC) Word finding difficulty DEWEY (obstructive sleep apnea) Obstructive sleep apnea (adult) (pediatric) Severe episode of recurrent major depressive disorder, without psychotic features (HCC) (CMS/HCC) Generalized anxiety disorder (CMS/HCC) Generalized anxiety disorder documented in this encounter [facility] Healthcare[facility] note* Diagnosis Memory loss- Primary DEWEY (obstructive sleep apnea) Obstructive sleep apnea (adult) (pediatric) documented in this encounter [facility] HealthcareHistory general Narrative - ReportedGrand Haven DySISmedical Other History of Present illness Narrative* Jaylin Villela, - 03/12/2024 3:45 PM EST Images from the original note were not included. Chief complaint: Memory impairment Subjective Rita West Jason, 48 y.o., female Patient presents today for a follow up for memory loss. She had neuropsych testing completed to review today. Patient states things have been about the same as last visit. She states she is still experiencing brain fog. She did have her testing done for sleep apnea which she has not got the resultsfor yet. She is still having issues with sleep. She struggles with staying asleep because she wakesup gagging. She denies any new concerns at this time. Review of Systems Constitutional: Negative for appetite change, fatigue and fever. Respiratory: Negative for cough, shortness of breath and wheezing. Cardiovascular: Negative for chest pain, palpitations and leg swelling. Gastrointestinal: Negative for abdominal pain, constipation, diarrhea and nausea. Musculoskeletal: Negative for arthralgias, gait problem and myalgias. Neurological: Negative for dizziness, tremors, numbness and headaches. Memory loss Past Medical History: Diagnosis Date Cardiac arrhythmia Cellulitis COVID Current smoker Cyst of thyroid determined by ultrasound (CMS/[facility]) Thyroid US 05/28/16 Nodules & Cysts revealed Cystocele with rectocele Delivery of 2006 LVB 8# 2oz Depression (CMS/HCC) Fatigue H/O chest x-ray 02/24/2015 Hepatitis 1994 with mono Herpes History of medical problems Abscess in throat; drained History of mononucleosis With hepatitis History of polydactyly Excision of extra thumb Hormone imbalance LGSIL Pap smear of vagina 2004 when Menstrual migraine, not intractable, without status migrainosus (CMS/HCC) Migraine (CMS/HCC) Migraines (CMS/HCC) Somatic dysfunction of rib cage region Somatic dysfunction of spine, thoracic MARIA EUGENIA (stress urinary incontinence, female) Thyroid nodule (CMS/HCC) Trigger finger Urinary urgency Past Surgical History: Procedure Laterality Date ADENOIDECTOMY APPENDECTOMY SECTION, LOW TRANSVERSE 2003 LTCS-Baby ; Tuberous sclerosis Rhabdomyoma of heart; 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, genetic problems COLPORRHAPHY 2018 A&P, retropubic TVT, excision of L vaginal cyst-SHANT INTRAUTERINE DEVICE INSERTION 02/17/2023 Liletta LARYNGOSCOPY 08/30/2016 DML with Vocal Cord Augmentation THYROIDECTOMY Right 07/06/2016 Jose Angel Thyroidectomy TONSILLECTOMY TRIGGER FINGER RELEASE ULTRASOUND: GALLBLADDER 02/24/2015 WISDOM TOOTH EXTRACTION 2014 6 impacted Family History Problem Relation Name Age of Onset Multiple sclerosis Mother ALS Mother Heart disease Mother Stroke Mother Migraines Mother Hypertension Father Hyperlipidemia Father Stroke Maternal Grandmother Cancer Maternal Grandfather Diabetes Paternal Grandmother Hypertension Paternal Grandmother Cancer Paternal Grandfather Tuberous sclerosis Daughter Breast cancer Neg Hx Social History Tobacco Use Smoking status: Some Days Current packs/day: 0.25 Types: Cigarettes Smokeless tobacco: Never Substance Use Topics Alcohol use: Yes Comment: caffeine intake: 3-4 cups per day Allergies: Cefpodoxime Vitals: 03/12/24 1522 BP: 136/84 Pulse: 106 SpO2: 97% Body mass index is 31.73 kg/m . weight: 196 lb 9.6 oz Neurologic exam: Mental status: Awake, alert to person, place and time. MOCA: 25/30 Language is fluent without aphasia. Attention and concentration are normal. Fund of knowledge is appropriate for level of education. Cranial nerves: CN II: Visual acuity is normal. Visual randhawa full to confrontation. CN III, IV, : pupils equal round and reactive to light. Extraocular movements intact. No ptosis present. CN V: Facial sensation is normal. CN VII: Full and symmetric facial movement. CN VIII: Hearing is normal to finger rub bilaterally: CN IX and X: Palate elevates symmetrically. CN XI: Shoulder shrug is normal bilaterally. CN XII: Tongue is midline without atrophy or fasciculation. Motor: Strength is 5/5 throughout. Bulk is normal. Sensory: Sensation is intact to light touch throughout Four extremities. Reflexes: Deep tendon reflexes are 2+ and symmetric throughout. Coordination: [id number] testing and rapid alternating movements are normal Gait: Normal Review and summary of old records: Neuropsych assessment at [facility] on 02/23/2024: Current neuropsych exam reveals well-preserved cognition and memory. Overall presentation is most consistent with a history of ADHD, inattentive type. Severe depression, moderate anxiety and poor sleep are likely exacerbating distractibility and interfering with optimal memory performance. [place] cognitive assessment [facility] on 01/04/2024: 25/ CT of the brain with and without contrast on 12/27/2023: No acute intracranial abnormality. Assessment/Plan Diagnoses and all orders for this visit: Memory loss It was my impression that the patient has subjective complaints of memory impairment. Her Sushil cognitive assessment on 01/04/2024 was 25/30. B12 and thyroid stimulating hormone were normal on 12/22/2023. CT of the brain with and without contrast on 12/27/2023 was also unremarkable. She does have a lot of difficulty with waking up choking and fatigue and very poor sleep and very loud snoring. I wonder if her memory impairment as a result of severe untreated obstructive sleep apnea. Certainlyother psychological factors could play a role. Neuropsych exam demonstrates well-preserved cognition and memory and shows concern for ADHD, anxiety, depression and poor sleep. Plan: Continue to work on management of psychiatric mediators that may be affecting memory. Additionally follow up with sleep medicine as below. DEWEY (obstructive sleep apnea) B12 and thyroid stimulating hormone on 12/22/2023: Normal I am strongly suspicious of obstructive sleep apnea. The patient wakes up short of breath, snores very loudly such that her will no longer sleep in the room with her, is overweight and does feel extreme fatigue during the day. I have reviewed the patient's polysomnogram which shows oxygen desaturation into the 80s. This clearly needs aggressive management with sleep medicine. Plan: Patient did have polysomnogram and will need to follow up with Dr. Llanos for further management ofchronic sleep disorders. Family hx of ALS (amyotrophic lateral sclerosis) Patient has a family history of amyotrophic lateral sclerosis. Her mother at the age of 73 within the last year this disease. Family was offered genetic testing and has declined. Pt has been fully educated on their diagnosis, lab results, treatment options, follow up plan, and return instructions documented in this encounterMineral Area Regional Medical CenterReason for visit Narrative* Consultation (Routine) - Closed Specialty Diagnoses / Procedures Referred By Mani pat Referred To Contact Psychology Diagnoses Memory loss Procedures ID OFFICE/OUTPATIENT [facility] 60 MINUTES Jaylin Villela DO [address] [place] [id number] Phone: tel: fax: Yoni Blanchard, PhD [address] [place] [phone] Phone: tel: fax: Referral ID Status Reason Start Date Expiration Date V isits Requested Visits Authorized [id number] Closed Specialty Services Required 01/04/2024 07/02/2024 1 1 [facility] HealthcareReason for visit Narrative* Consultation (Routine) - Closed Specialty Diagnoses / Procedures Referred By Mani pat Referred To Contact Psychology Diagnoses Memory loss Procedures ID OFFICE/OUTPATIENT [facility] 60 MINUTES Jaylin Villela DO [address] [place] [id number] Phone: tel: fax: Yoni Blanchard, PhD [address] [place] [phone] Phone: tel: fax: Referral ID Status Reason Start Date Expiration Date V isits Requested Visits Authorized [id number] Closed Specialty Services Required 01/04/2024 07/02/2024 2 2 [facility] Healthcare Summary Purpose Family History No Family History Records Found Relationship Condition Age at Onset Recorded Date/T fercho Not Specified Migraine headache Unknown father Hypertension Unknown High blood cholesterol Unknown daughter Tuberous sclerosis syndrome Unknown Relationship Condition Age at Onset Recorded Date/T fercho mother Migraine headache Unknown Amyotrophic lateral sclerosis Unknown father Hypertension Unknown High blood cholesterol Unknown daughter Tuberous sclerosis syndrome Unknown daughter Unknown grandparent Unknown Advance Directives No Advanced Directives Records Found Advance Directive Response Recorded Date/ Time Advance Directives No February 08, 2017 8:00am Advance Directive Response Recorded Date/ Time Advance Directives No February 07, 2024 3:31pm Chief Complaint and Reason for Visit Chief Complaint r07.9 r06.02 r00.2 e 04.1 e78.5 Chief Complaint Toradol injection fo r migraine Abscess acute cyst in armpit Reason for Visit Migraine Abscess Chief Complaint L02.91 acute cyst in armpit brain fog and weight issues z82.0 r41.3 r41.89 r53.83 Reason for Visit Abscess Anxiety Brain fog Family hx of ALS (amyotrophic lateral sclerosis) Fatigue Memory loss Chief Complaint L02.91 acute cyst in armpit brain fog and weight issues z82.0 r41.3 r41.89 r53.83 Z82.0 R41.3 R41.89 R53.83 Reason for Visit Abscess Anxiety Brain fog Family hx of ALS (amyotrophic lateral sclerosis) Fatigue Memory loss Chief Complaint L02.91 acute cyst in armpit brain fog and weight issues z82.0 r41.3 r41.89 r53.83 Z82.0 R41.3 R41.89 R53.83 wellness Reason for Visit Abscess Anxiety Brain fog Family hx of ALS (amyotrophic lateral sclerosis) Fatigue Memory loss Abnormal EKG Hyperlipidemia Memory loss Screening for colon cancer Screening mammogram for breast cancer Wellness examination Chief Complaint L02.91 acute cyst in armpit brain fog and weight issues z82.0 r41.3 r41.89 r53.83 Z82.0 R41.3 R41.89 R53.83 wellness Z00.00 R94.31 R07.9 Review stress/echo/neuro/ Semaglutide? R94.31 R07.9 Reason for Visit Abscess Anxiety Brain fog Family hx of ALS (amyotrophic lateral sclerosis) Fatigue Memory loss Abnormal EKG Hyperlipidemia Memory loss Screening for colon cancer Screening mammogram for breast cancer Wellness examination Abnormal EKG BMI 31.0-31.9,adult Memory loss Obesity Additional Source Comments INFORMATION SOURCE (unrecogn ized section and content) DATE CREATED AUTHOR 09/29/2017 [facility] DATE CREATED AUTHOR AUTHOR'S ORGANIZ ATION 03/06/2024 [facility] DATE CREATED AUTHOR AUTHOR'S ORGANCANDICE ATION 03/14/2024 [facility] EPIC REASON FOR VISIT (unrecogniz ed section and content) Clinical Acute MedicineStuff y nose, migraine, nausea/ Covid & flu swab/ Toradol injectionMatrix paperworkClinicalirritability, mood swings, fatigue-wants labs work. One episode of palpitations and SOB (advised to ER if this happens again)refillPA1 month Follow upclinicalClinical Acute IllnessClinical Acute MedicineRefillAimovig PAdiscuss anxiety meds1 month Follow upclinicalSedgwick short term disabilityAimovig [facility]ket[facility] painsLab Care Teams (unrecognized sec tion and content) Team Status: Active Member Role Status Marla Limon DO Primary Care Provider Active Team Status: Inactive Member Role Status Marla Limon DO Primary Care Provider, Attending Provi kathe Active Team Status: Inactive Member Role Status Marla Limon DO Primary Care Provider Active Alejandro Bettencourt DO Attending Provider Active Team Status: Inactive Member Role Status Marla Limon DO Primary Care Provide r, Attending Provider Active Start: September 13, 2023 End: September 13, 2023 Team Status: Inactive Member Role Status Marla Limon DO Attending Provider Active Start: November 30, 2023 End: November 30, 2023 Team Status: Inactive Member Role Status Marla Limon DO Primary Care Provide r, Attending Provider Active Start: November 30, 2023 End: November 30, 2023 Team Status: Inactive Member Role Status Marla Limon DO Primary Care Provide r, Attending Provider Active Start: December 13, 2023 End: December 13, 2023 Team Status: Inactive Member Role Status Marla Limon DO Primary Care Provide r, Attending Provider Active Start: December 22, 2023 End: December 22, 2023 Team Status: Inactive Member Role Status Marla Limon DO Primary Care Provide r, Attending Provider Active Start: December 27, 2023 End: December 27, 2023 Team Status: Inactive Member Role Status Marla Limon DO Primary Care Provide r, Attending Provider Active Start: January 03, 2024 End: January 03, 2024 Canary Breeder Relationship Specialty Start Date End Date Trever Limon DO [address] [place] [phone] PCP - General Family Medicine 01/17/23 Team Status: Active Member Role Status Dates Trever Limon DO Primary Care Provide r, Other Provider Active Start: January 03, 2024 Jarret Power MD Attending Provider Active Start: December Team Status: Inactive Member Role Status Dates Trever Limon DO Primary Care Provide r, Attending Provider Active Start: February 07, 2024 End: February 07, 2024 Kenneth Barragan MD Referring Provider Active Start: February 07, 2024 End: February 07, 2024 Team Status: Inactive Member Role Status Dates Trever Limon DO Primary Care Provide r, Attending Provider Active Start: February 07, 2024 End: February 07, 2024 Team Status: Active Member Role Status Dates Trever Limon DO Primary Care Provide r, Other Provider Active Start: February 07, 2024 Kenneth Barragan MD Referring Provider Active Start: February 07, 2024 Jarret Power MD Attending Provider Active Start: February 07, 2024 Canary Breeder Relationship Specialty Start Date End Date Trever Limon DO [address] [place] [phone] PCP - General Family Medicine 01/17/23 Canary Breeder Relationship Specialty Start Date End Date Trever Limon DO [address] [place] [phone] PCP - General Family Medicine 01/17/23 Canary Breeder Relationship Specialty Start Date End Date Trever Limon DO [address] [phone] PCP - General Family Medicine 01/17/23 Goals (unrecognized section and content) Goals may be documented in a n alternate section FOR RECORDS PERTAINING TO PATIENTS WHO ARE OR HAVE BEEN ENROLLED IN A CHEMICAL DEPENDENCY/SUBSTANCEABUSE PROGRAM, SOME INFORMATION MAY BE OMITTED. This clinical summary was aggregated from multiple sources. Caution should be exercised in using it in the provision of clinical care. This summary normalizes information from multiple sources, and as a consequence, information in this document may materially change the coding, format and clinical context of patient data. In addition, data may be omitted in some cases. CLINICAL DECISIONS SHOULD BE BASED ON THE PRIMARY CLINICAL RECORDS. [facility]. provides no warranty or guarantee of the accuracy or completeness of information in this document.
== END 2024-03-27 20:01 | disposition home or self-care (01) ==
LOC: SLEEP 03-29 08:35
PROVIDERS: PCP Psychiatry & Neurology Neurology; Visit Provider Psychiatry & Neurology Neurology
DX: G47.33 Obstructive sleep apnea (adult) (pediatric) (principal)
CPT/HCPCS: 95811